=== PATIENT | male | born 1950 | race Hispanic/Latino ===

== ENCOUNTER 2017-07-17 12:44 | Emergency (ER) | payer MEDICARE ==
[2017-07-17 13:08] VITALS: BMI 36.0
--- NOTE | 2017-07-17 13:36 | ED PDOC ---
Arrival/HPI - General Chief Complaint: Pain, Chronic Time Seen by Provider: 07/17/17 12:57 Historian: Patient - History of Present Illness Narrative History of Present Illness (Text): 07/17/17 13:27 A 66 year old male, whose past medical history includes arthritis, back pain, degenerative joint disease, gastritis, and unsteady gait, presents to the emergency department complaining of coccydynia and persistent constipation for 2 1/2 months. Patient reports he fell 2 1/2 months ago. He states since fall, pain radiates down to his legs and it is hard to ambulate. He also mentions experiencing b/l knee pain from arthritis and has had trouble going to the bathroom 4-5 days at a time. Patient has no other complaints. Patient mentions taking Oxycodone and Lyrica, and has been seeing pain management. He says that this morning while pushing to have a BM, he felt the pain in his coccyx again. PMD: Dr. Elan Nuñez Time/Duration: < month (2 1/2 months ) Symptom Onset: Gradual Symptom Course: Unchanged Past Medical History - Provider Review Nursing Documentation Reviewed: Yes - Infectious Disease Hx of Infectious Diseases: None - Tetanus Immunization Tetanus Immunization: Unknown - Past Medical History Past Medical History: Non-Contributing - Cardiac Hx Cardiac Disorders: Yes Hx [place]: Yes Hx Hypertension: Yes - Pulmonary Hx Respiratory Disorders: Yes Hx Pneumonia: Yes (11/10/14) - Neurological Hx Neurological Disorder: No - HEENT Hx HEENT Disorder: Yes (WEARS RX GLASSES) Hx Cataracts: Yes - Renal Hx Renal Disorder: Yes Other/Comment: hepatic cyst - Endocrine/Metabolic Hx Endocrine Disorders: No - Hematological/Oncological Hx Blood Disorders: No - Integumentary Hx Dermatological Disorder: No - Musculoskeletal/Rheumatological Hx Musculoskeletal Disorders: Yes Hx Arthritis: Yes Hx Back Pain: Yes Hx Degenerative Joint Disease: Yes Hx Falls: Yes Hx Rhabdomyolysis: Yes Hx Unsteady Gait: Yes (uses cane) Other/Comment: hiatal hernia, lumbar disc disease, lumbar radiculopathy - Gastrointestinal Hx Gastrointestinal Disorders: Yes Hx Diverticulitis: Yes Hx Gastritis: Yes Hx Hemorrhoids: Yes - Genitourinary/Gynecological Hx Genitourinary Disorders: No - Psychiatric Hx Psychophysiologic Disorder: Yes Hx Anxiety: Yes Hx Depression: Yes Hx Substance Use: No - Past Surgical History Past Surgical History: No Previous - Surgical History Hx Cardiac Catheterization: Yes (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%) Hx Open Heart Surgery: Yes - Anesthesia Hx Anesthesia: Yes Hx Anesthesia Reactions: No Hx Malignant Hyperthermia: No - Suicidal Assessment Feels Threatened In Home Enviroment: No Family/Social History - Physician Review Nursing Documentation Reviewed: Yes Family/Social History: No Known Family HX Smoking Status: Never Smoked Hx Alcohol Use: No Hx Substance Use: No Hx Substance Use Treatment: No Allergies/Home Meds Allergies/Adverse Reactions: Allergies Penicillins Adverse Reaction (Verified 07/17/17 13:12) ANAPHYLAXIS Home Medications: Home Meds Medication Instructions Recorded Confirmed Clonazepam [Klonopin] 2 mg PO TID 04/16/14 04/02/16 Atorvastatin [Lipitor] 40 mg PO DIN 02/02/15 04/02/16 Folic Acid 1 mg PO DAILY 03/07/15 04/02/16 Lyrica 75 mg PO TID 04/17/15 04/02/16 Amiodarone [Cordarone] 200 mg PO DAILY 08/01/15 04/02/16 Ergocalciferol [Vitamin D] 1 tab PO QWK 08/01/15 04/02/16 Furosemide [Lasix] 40 mg PO DAILY 08/01/15 04/02/16 Metoprolol Tartrate [Metoprolol 25 mg PO BID 08/01/15 04/02/16 Tartrate] Buprenorphine [Butrans] 1 patch TOP QWK 04/02/16 04/02/16 Valsartan/Hydrochlorothiazide 1 tab PO DAILY 04/02/16 04/02/16 [Diovan Hct 320-25 mg Tablet] Review of Systems - Physician Review All systems were reviewed & negative as marked: Yes - Review of Systems Constitutional: absent: Fevers, Night Sweats Respiratory: absent: SOB Cardiovascular: absent: Chest Pain Gastrointestinal: Constipation (persistent constipation), Other (Coccydynia). absent: Abdominal Pain, Diarrhea, Nausea, Vomiting Genitourinary Male: Urinary Output Changes (has had trouble using the bathroom) Musculoskeletal: Other (b/l knee pain; leg pain radiating from anal pain) Physical Exam Vital Signs Reviewed: Yes Vital Signs Temp Pulse Resp BP Pulse Ox 07/17/17 15:36 75 18 138/79 99 07/17/17 12:58 98.3 F 79 18 142/81 99 Temperature: Afebrile Blood Pressure: Normal Pulse: Regular Respiratory Rate: Normal Appearance: Positive for: Well-Appearing Pain Distress: None Mental Status: Positive for: Alert and Oriented X 3 - Systems Exam Head: Present: Atraumatic, Normocephalic Mouth: Present: Moist Mucous Membranes Neck: Present: Normal Range of Motion Abdomen: Present: Normal Bowel Sounds. No: Tenderness, Distention, Peritoneal Signs Back: Present: Other (tender to palpation of lumbar spine lower region near coccyx) Upper Extremity: Present: Normal Inspection. No: Cyanosis, Edema Lower Extremity: Present: Normal Inspection. No: Edema Neurological: Present: GCS=15, CN II-XII Intact, Speech Normal Skin: Present: Warm, Dry, Normal Color. No: Rashes Psychiatric: Present: Alert, Oriented x 3, Normal Insight, Normal Concentration Medical Decision Making ED Course and Treatment: 07/17/17 13:32 Impression: 66 year old male with coccydynia and intermittent constipation for several months. Physical exam shows tender to palpation of lower lumbar spine. He is chronically maintained on oxycodone. Plan: -- Lumbar Spine CT -- B/L Knee X-Ray -- Reassess and disposition Prior Visits: Notes and results from previous visits were reviewed. Patient was last seen in the emergency department on 07/24/2016 for "sacral pain". Patient was discharged. Progress Notes: 07/17/2017 15:[address] IMPRESSION: No fracture/dislocation. Multilevel disc bulge with probable calcified old midline disc herniation at L5-S1. No central spinal stenosis. Multilevel neural foraminal stenosis as above. Dictator: Sherman Mckeon MD 07/17/2017 B/L Knee X-ray 15:49 IMPRESSION: 1. No acute fracture or dislocation. 2. Mild tricompartmental degenerative osteoarthrosis, worse in the medial compartments. Small right suprapatella joint effusion. Dictator: Magdalena Rowell MD 07/17/17 16:09 Patient with noted history with symptoms x 2.5 months; imaging as above with no acute findings. He is already maintained on oxycodone and will need higher fiber diet and miralax for constipation. He also says that over this past year he has been walking less but has not seen his pmd in 8 months - informed patient he needs to f/u pmd. Patient had a script given to him by his pain management physician to set up home health aid; he says he has been having trouble setting it up - spoke with social work, who said case management will contact the patient tomorrow regarding this. - RAD Interpretation Radiology Orders: 07/17/17 13:33 LUMBAR SPINE W/O CONTRAST [CT] Stat 07/17/17 13:34 KNEE W PATELLA BILAT 3 VIEW [RAD] Stat - Scribe Statement The provider has reviewed the documentation as recorded by the Scribe Krissy Vance Provider Scribe Attestation: All medical record entries made by the Scribe were at my direction and personally dictated by me. I have reviewed the chart and agree that the record accurately reflects my personal performance of the history, physical exam, medical decision making, and the department course for this patient. I have also personally directed, reviewed, and agree with the discharge instructions and disposition. Disposition/Present on Arrival - Present on Arrival Any Indicators Present on Arrival: No History of DVT/PE: No History of Uncontrolled Diabetes: No Urinary Catheter: No History of Decub. Ulcer: No History Surgical Site Infection Following: None - Disposition Have Diagnosis and Disposition been Completed?: Yes Diagnosis: Low back pain, Constipation, Knee pain, bilateral Disposition: HOME/ ROUTINE Disposition Time: 16:00 Patient Plan: Discharge Condition: GOOD Discharge Instructions (ExitCare): High Fiber Diet (ED) Additional Instructions: Recommend high fiber diet. Take the miralax as prescribed for constipation. Continue your pain medication, as prescribed by pain management. Follow up with Dr. Nuñez. You will receive a call from case management / social work tomorrow regarding possible arrangements for home visiting nurse and/or home health aid. Return to the emergency department if any new concerning symptoms. Prescriptions: Polyethylene Glycol 3350 [Miralax] 17 gm PO DAILY #529 gm Referrals: Elan Nuñez MD [Primary Care Provider] - Follow up with primary Forms: [employer] ([place])
[2017-07-17 15:36] VITALS: PULSE 75
--- NOTE | 2017-07-17 15:42 | CT ---
PROCEDURE: CT Lumbar Spine without contrast HISTORY: fell; intractable low back pain COMPARISON: None. TECHNIQUE: Axial computed tomography images were obtained of the lumbar spine without the use of intravenous contrast. Coronal and sagittal reformatted images were created and reviewed. Radiation dose: Total exam DLP = 9151.85 mGy-cm. This CT exam was performed using one or more of the following dose reduction techniques: Automated exposure control, adjustment of the mA and/or kV according to patient size, and/or use of iterative reconstruction technique. FINDINGS: VERTEBRAE: Unremarkable. No fracture. Normal alignment. DISCS/SPINAL CANAL/NEURAL FORAMINA: L1-2: Minimal disc bulge. No spinal stenosis or neural foraminal stenosis. No focal disc herniation. L2-3: Mild disc bulge. No focal herniation. No spinal stenosis. Mild left L2-3 neural foraminal stenosis. L3-4: Mild disc bulge. No focal disc herniation. No spinal stenosis or neural foraminal stenosis. L4-5: Diffuse disc bulge. No focal disc herniation. Bilateral degenerative facet arthropathy. No central spinal stenosis. Moderate bilateral neural foraminal stenosis. L5-S1: Severe degenerative disc disease with narrowed intervertebral disc space. Mild diffuse disc bulge. Probable calcified midline old disc herniation. Moderate right neural foraminal stenosis. No left neural foraminal stenosis. No central spinal stenosis. PARASPINAL SOFT TISSUES: Unremarkable. OTHER FINDINGS: None. IMPRESSION: No fracture/ dislocation. Multilevel disc bulge with probable calcified old midline disc herniation at L5-S1. No central spinal stenosis. Multilevel neural foraminal stenosis as above.
--- NOTE | 2017-07-17 15:50 | RAD ---
PROCEDURE: Bilateral Knee Radiographs. HISTORY: b/L knee pain s/p fall COMPARISON: None. FINDINGS: BONES: Bone alignment and mineralization are normal. There is no acute displaced fracture or bone destruction. There is deformity in the right fibular head with probable adjacent heterotopic bone. JOINTS: There is mild tricompartmental degenerative osteoarthrosis worse in the medial compartments. There are dorsal patellar enthesophytes. SOFT TISSUES: Right Knee: Normal. Left Knee: Normal. JOINT EFFUSION: Right Knee: There is a trough small suprapatellar joint effusion. Left Knee: None. OTHER FINDINGS: There are atherosclerotic vascular calcifications on the right. IMPRESSION: 1. No acute fracture or dislocation. 2. Mild tricompartmental degenerative osteoarthrosis, worse in the medial compartments. Small right suprapatellar joint effusion.
[2017-07-17 16:20] VITALS: BP 135/79; RESP 17; TEMP 98.2; O2SAT 98
== END 2017-07-17 16:20 | disposition home or self-care (01) ==
LOC: ED 12:44
DX: K59.00 Constipation, unspecified (principal); M54.5 Low back pain; M25.562 Pain in left knee; M25.561 Pain in right knee

== ENCOUNTER 2018-02-05 14:48 | Emergency (ER) | payer MEDICARE ==
[2018-02-05 15:12] VITALS: BMI 34.9
[2018-02-05 15:20] VITALS: BP 158/95; PULSE 78; RESP 18; TEMP 97.9; O2SAT 96
--- NOTE | 2018-02-05 16:16 | ED PDOC ---
Arrival/HPI - General Time Seen by Provider: 02/05/18 15:07 Historian: Patient - History of Present Illness Narrative History of Present Illness (Text): 02/05/18 16:12 Pt is a 66 year old male, whose past medical history includes arthritis, back pain, degenerative joint disease, and unsteady gait, presents to the emergency department complaining of coccyx pain. He states he had a fall about one year ago but continues to have pain that radiates down his left leg making it difficult walk. Also reports a sore buttocks that he knows is due to sitting for long periods. Patient has no other complaints. Patient takes Oxycodone and Lyrica, and has been seeing pain management. Time/Duration: > month Symptom Onset: Gradual Symptom Course: Unchanged Quality: Aching, Pressure, Tightness Severity Level: 6 Activities at Onset: Rest, Sleeping Context: Home Past Medical History - Provider Review Nursing Documentation Reviewed: Yes - Travel History Have you recently traveled outside [place] w/in the past 3 mons?: No - Infectious Disease Hx of Infectious Diseases: None - Tetanus Immunization Tetanus Immunization: Unknown - Past Medical History Past Medical History: Non-Contributing - Cardiac Hx Cardiac Disorders: Yes Hx [place]: Yes Hx Hypertension: Yes - Pulmonary Hx Respiratory Disorders: Yes Hx Pneumonia: Yes (11/10/14) - Neurological Hx Neurological Disorder: No - HEENT Hx HEENT Disorder: Yes (WEARS RX GLASSES) Hx Cataracts: Yes - Renal Hx Renal Disorder: Yes Other/Comment: hepatic cyst - Endocrine/Metabolic Hx Endocrine Disorders: No - Hematological/Oncological Hx Blood Disorders: No - Integumentary Hx Dermatological Disorder: No - Musculoskeletal/Rheumatological Hx Musculoskeletal Disorders: Yes Hx Arthritis: Yes Hx Back Pain: Yes Hx Degenerative Joint Disease: Yes Hx Falls: Yes Hx Rhabdomyolysis: Yes Hx Unsteady Gait: Yes (uses cane) Other/Comment: hiatal hernia, lumbar disc disease, lumbar radiculopathy - Gastrointestinal Hx Gastrointestinal Disorders: Yes Hx Diverticulitis: Yes Hx Gastritis: Yes Hx Hemorrhoids: Yes - Genitourinary/Gynecological Hx Genitourinary Disorders: No - Psychiatric Hx Psychophysiologic Disorder: Yes Hx Anxiety: Yes Hx Depression: Yes Hx Substance Use: No - Past Surgical History Past Surgical History: No Previous - Surgical History Hx Cardiac Catheterization: Yes (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%) Hx Open Heart Surgery: Yes - Anesthesia Hx Anesthesia: Yes Hx Anesthesia Reactions: No Hx Malignant Hyperthermia: No - Suicidal Assessment Feels Threatened In Home Enviroment: No Family/Social History - Physician Review Nursing Documentation Reviewed: Yes Family/Social History: Unknown Family HX Smoking Status: Never Smoked Hx Alcohol Use: No Hx Substance Use: No Hx Substance Use Treatment: No Allergies/Home Meds Allergies/Adverse Reactions: Allergies Penicillins Adverse Reaction (Verified 07/17/17 13:12) ANAPHYLAXIS Home Medications: Home Meds Medication Instructions Recorded Confirmed Clonazepam [Klonopin] 2 mg PO TID 04/16/14 04/02/16 Atorvastatin [Lipitor] 40 mg PO DIN 02/02/15 04/02/16 Folic Acid 1 mg PO DAILY 03/07/15 04/02/16 Lyrica 75 mg PO TID 04/17/15 04/02/16 Amiodarone [Cordarone] 200 mg PO DAILY 08/01/15 04/02/16 Ergocalciferol [Vitamin D] 1 tab PO QWK 08/01/15 04/02/16 Furosemide [Lasix] 40 mg PO DAILY 08/01/15 04/02/16 Metoprolol Tartrate [Metoprolol 25 mg PO BID 08/01/15 04/02/16 Tartrate] Buprenorphine [Butrans] 1 patch TOP QWK 04/02/16 04/02/16 Valsartan/Hydrochlorothiazide 1 tab PO DAILY 04/02/16 04/02/16 [Diovan Hct 320-25 mg Tablet] Review of Systems - Review of Systems Constitutional: Normal Eyes: Normal ENT: Normal Respiratory: Normal Cardiovascular: Normal Gastrointestinal: Normal Genitourinary Male: Normal Musculoskeletal: Normal, Back Pain (left side of low back) Skin: Normal Neurological: Normal Endocrine: Normal Hemo/Lymphatic: Normal Psychiatric: Normal Physical Exam Vital Signs Reviewed: Yes Vital Signs Temp Pulse Resp BP Pulse Ox 02/05/18 15:19 97.9 F 78 18 158/95 H 96 Temperature: Afebrile Blood Pressure: Normal Pulse: Regular Respiratory Rate: Normal Appearance: Positive for: Well-Appearing, Non-Toxic, Comfortable Pain Distress: Moderate Mental Status: Positive for: Alert and Oriented X 3 - Systems Exam Head: Present: Atraumatic, Normocephalic Pupils: Present: PERRL Extroacular Muscles: Present: EOMI Conjunctiva: Present: Normal Mouth: Present: Moist Mucous Membranes Neck: Present: Normal Range of Motion Respiratory/Chest: Present: Clear to Auscultation, Good Air Exchange. No: Respiratory Distress, Accessory Muscle Use Cardiovascular: Present: Regular Rate and Rhythm, Normal S1, S2. No: Murmurs Abdomen: No: Tenderness, Distention, Peritoneal Signs Genitourinary Male: Present: Normal External Genitalia Back: Present: Normal Inspection, Paraspinal Tenderness (bilateral lumbosacral ) , Pain with Leg Raise, Other (erythema over the ischial tuberosities). No: CVA Tenderness, Midline Tenderness Upper Extremity: Present: Normal Inspection. No: Cyanosis, Edema Lower Extremity: Present: Normal Inspection, NORMAL PULSES, Normal ROM, Neurovascularly Intact. No: Edema, CALF TENDERNESS, Juan Carlos's Sign, Tenderness, Temperature Abnormalties Neurological: Present: GCS=15, CN II-XII Intact, Speech Normal, Motor Func Grossly Intact, Normal Sensory Function, Norm Deep Tendon Reflexes, Memory Normal Skin: Present: Warm, Dry, Normal Color. No: Rashes Psychiatric: Present: Alert, Oriented x 3, Normal Insight, Normal Concentration Medical Decision Making ED Course and Treatment: 02/05/18 16:16 Impression Pt is a 66 year old male, whose past medical history includes arthritis, back pain, degenerative joint disease, and unsteady gait, presents to the emergency department complaining of coccyx pain. (-)SLR b/l, SILT and motor function grossly intact; skin is erythematous over the ischial tuberosities Plan Toradol 60 mg IM STAT Asssess and dispo Progress Note Pt very talkative and continues to list complaints over course of stay Pt re-evaluated x2 and stable; dispo home with his brother at bedside Will f/u with PMD ad pain management - Medication Orders Current Medication Orders: Discontinued Medications Ketorolac Tromethamine (Toradol) 30 mg IM STAT STA Stop: 02/05/18 16:13 Last Admin: 02/05/18 16:19 Dose: Ketorolac Tromethamine (Toradol) 60 mg IM STAT STA Stop: 02/05/18 16:12 Last Admin: 02/05/18 16:27 Dose: 60 mg MAR Pain Assessment Document 02/05/18 16:27 SRE (Rec: 02/05/18 16:27 SRE [id number]) Pain Reassessment Is this a pain reassessment? Yes Sleep Is patient sleeping during reassessment? No Pain Scale Used Pain Scale Used Numeric IM Administration Charges Document 02/05/18 16:27 SRE (Rec: 02/05/18 16:27 SRE [id number]) Charges for Administration # of IM Administrations 1 Disposition/Present on Arrival - Present on Arrival Any Indicators Present on Arrival: Yes History of DVT/PE: No History of Uncontrolled Diabetes: No Urinary Catheter: No History of Decub. Ulcer: No History Surgical Site Infection Following: None - Disposition Have Diagnosis and Disposition been Completed?: Yes Diagnosis: Back pain, chronic, Sciatica, left side, Hypochondria Disposition: HOME/ ROUTINE Disposition Time: 16:20 Patient Plan: Discharge Condition: GOOD Discharge Instructions (ExitCare): Chronic Pain (DC) Additional Instructions: Jonn Please see your Primary doctor in the next 24 hrs. We also recommend seeing your bumper and painter for chronic back pain. Take STAR ray Referrals: Elan Nuñez MD [Primary Care Provider] - Follow up with primary
== END 2018-02-05 16:51 | disposition home or self-care (01) ==
LOC: ED 14:48
DX: M54.32 Sciatica, left side (principal); G89.29 Other chronic pain; F45.21 Hypochondriasis; I10 Essential (primary) hypertension
CPT/HCPCS: 96372; 99281; J1885

== ENCOUNTER 2018-03-08 14:43 | Emergency (ER) | payer MEDICARE ==
[2018-03-08 14:48] VITALS: BMI 30.4
[2018-03-08 15:00] VITALS: RESP 18; TEMP 97.9
[2018-03-08] MEDS ORDERED: Morphine 2 mg/ml ISec IVP STA (15:09)
[2018-03-08] MEDS ORDERED: Morphine 4 mg/ml ISec IVP STA (15:11)
--- NOTE | 2018-03-08 16:55 | RAD ---
PROCEDURE: Radiographs of the pelvis and bilateral hips HISTORY: fell weeks ago, persistent pain COMPARISON: None. FINDINGS: BONES: Pelvis: No fracture identified. Right hip:Unremarkable Left hip:Unremarkable. JOINTS: Right hip: Moderate degenerative change. Left hip: Symmetrical degenerative change. Sacroiliac Joints: Unremarkable. Pubic symphysis: Unremarkable. SOFT TISSUES: Normal. OTHER FINDINGS: None. IMPRESSION: No significant or acute findings to account for/ related to the clinical presentation. Mild degenerative changes both hips.
--- NOTE | 2018-03-08 16:55 | RAD ---
PROCEDURE: Radiographs of the Lumbar Spine. HISTORY: lower back pain COMPARISON: No prior. FINDINGS: BONES: Normal alignment. No listhesis. No fracture. DISC SPACES: Degenerative changes primarily lower lumbar spine, lumbosacral junction and lower thoracic spine, of T12-L1. This consists of mild disc space narrowing and non marginal osteophyte formation OTHER FINDINGS: Calcified nonaneurysmal abdominal aorta. IMPRESSION: No acute findings related to/accounting for the clinical presentation. Additional benign and/or incidental findings described above.
--- NOTE | 2018-03-08 17:12 | ED PDOC ---
Arrival/HPI - General Chief Complaint: Pain, Chronic Time Seen by Provider: 03/08/18 15:00 Historian: Patient, Family (brother) - History of Present Illness Narrative History of Present Illness (Text): 03/08/18 1510 pt p/w + > 2 months onset of lower back pain; pt states he accidentally fell onto his buttock ~ 2 months ago and since then has had persistent lower back pain; pt states right hip also affected > left; pt states walking causes more pain; pt walks with a cane and noted today to have increased difficulty with walking even with using his cane; pt states no falls since that fall ~ 2 months ago; pt states no fever/chills/sweats, no cp/sob/palpitations, + infrequent coughs with sputum production; pt states + lower abd pain/cramps worsening over the last few weeks; pt states no n/v, no new numbness/tingling; pt arrived to ED for further eval pt's without other complaints. PCP: DR brennan hx of low back pain pt lives with brother pt is right hand dominate Time/Duration: > week (8weeks) Symptom Onset: Gradual Symptom Course: Worsening Quality: Tightness, Cramping Severity Level: Severe Activities at Onset: Other (with movement causes more pain) Context: Walking, Exertion, Home Past Medical History - Provider Review Nursing Documentation Reviewed: Yes - Travel History Have you recently traveled outside [place] w/in the past 3 mons?: No - Past History Past History: No Previous - Infectious Disease Hx of Infectious Diseases: None - Tetanus Immunization Tetanus Immunization: Unknown - Past Medical History Past Medical History: Non-Contributing - Cardiac Hx Cardiac Disorders: Yes Hx W[place]: Yes Hx Hypertension: Yes - Pulmonary Hx Respiratory Disorders: Yes Hx Pneumonia: Yes (11/10/14) - Neurological Hx Neurological Disorder: No - HEENT Hx HEENT Disorder: Yes (WEARS RX GLASSES) Hx Cataracts: Yes - Renal Hx Renal Disorder: Yes Other/Comment: hepatic cyst - Endocrine/Metabolic Hx Endocrine Disorders: No - Hematological/Oncological Hx Blood Disorders: No - Integumentary Hx Dermatological Disorder: No - Musculoskeletal/Rheumatological Hx Musculoskeletal Disorders: Yes Hx Arthritis: Yes Hx Back Pain: Yes Hx Degenerative Joint Disease: Yes Hx Falls: Yes Hx Rhabdomyolysis: Yes Hx Unsteady Gait: Yes (uses cane) Other/Comment: hiatal hernia, lumbar disc disease, lumbar radiculopathy - Gastrointestinal Hx Gastrointestinal Disorders: Yes Hx Diverticulitis: Yes Hx Gastritis: Yes Hx Hemorrhoids: Yes - Genitourinary/Gynecological Hx Genitourinary Disorders: No - Psychiatric Hx Psychophysiologic Disorder: Yes Hx Anxiety: Yes Hx Depression: Yes Hx Substance Use: No - Past Surgical History Past Surgical History: No Previous - Surgical History Hx Cardiac Catheterization: Yes (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%) Hx Open Heart Surgery: Yes - Anesthesia Hx Anesthesia: Yes Hx Anesthesia Reactions: No Hx Malignant Hyperthermia: No - Suicidal Assessment Feels Threatened In Home Enviroment: No Family/Social History - Physician Review Nursing Documentation Reviewed: Yes Family/Social History: No Known Family HX Smoking Status: Never Smoked Hx Alcohol Use: No Hx Substance Use: No Hx Substance Use Treatment: No Allergies/Home Meds Allergies/Adverse Reactions: Allergies Penicillins Adverse Reaction (Verified 07/17/17 13:12) ANAPHYLAXIS Home Medications: Home Meds Medication Instructions Recorded Confirmed Clonazepam [Klonopin] 2 mg PO TID 04/16/14 04/02/16 Atorvastatin [Lipitor] 40 mg PO DIN 02/02/15 04/02/16 Folic Acid 1 mg PO DAILY 03/07/15 04/02/16 Lyrica 75 mg PO TID 04/17/15 04/02/16 Amiodarone [Cordarone] 200 mg PO DAILY 08/01/15 04/02/16 Ergocalciferol [Vitamin D] 1 tab PO QWK 08/01/15 04/02/16 Furosemide [Lasix] 40 mg PO DAILY 08/01/15 04/02/16 Metoprolol Tartrate [Metoprolol 25 mg PO BID 08/01/15 04/02/16 Tartrate] Buprenorphine [Butrans] 1 patch TOP QWK 04/02/16 04/02/16 Valsartan/Hydrochlorothiazide 1 tab PO DAILY 04/02/16 04/02/16 [Diovan Hct 320-25 mg Tablet] Review of Systems - Review of Systems Constitutional: Normal Eyes: Normal ENT: Normal Respiratory: Normal Cardiovascular: Normal Gastrointestinal: Abdominal Pain Genitourinary Male: Normal Musculoskeletal: Back Pain, Other (lower back pain, right >> left). absent: Neck Pain Skin: Normal Neurological: Normal Endocrine: Normal Hemo/Lymphatic: Normal Psychiatric: Normal Physical Exam - Physical Exam Narrative Physical Exam (Text): 03/08/18 1520 GENERAL: alert/awake, GCS = 15, oriented x 3, resting in bed, uncomfortable, cooperative, interactive Head: NC/AT FACE/Oral: no gross deformities noted; poor dentitions, no drooling/stridor, no exudate/lesions, no dysphonia EYE: PERRLA, EOMI, sclera anicteric, no nystagmus, no photophobia; visual field intact b/l NECK: intact ROM, no midline tenderness, no nuchal rigidity, no meningeal signs ; no step off Chest Wall: no crepitus, no gross deformities, no focal tenderness noted CHEST: CTA b/l, no w/r/r Cards: +S1, +S2, no m/r/r ABD: +BS, soft/nd/nt, well nourished/obese male, no focal tenderness, no medellin' s sign, no mcburney's point tenderness, no masses/rebound/guarding/rigidity ext: intact ROM, strength 5-/5 grossly intact in b/l lower limbs, neurovasc intact b/l; no gross deformities noted SKIN: cap refill < 1 sec, no ulcerations, no petechiae, no rashes NEURO: CNII-XII WNL, no facial asymmetries, no slurr speech, oriented x 3 NIH stroke scale ~ 0 Psych: normal affect, cooperative Vital Signs Reviewed: Yes Vital Signs Temp Pulse Resp BP Pulse Ox 03/08/18 19:44 80 18 148/71 99 03/08/18 18:00 64 18 134/74 96 03/08/18 14:59 97.9 F 70 18 136/80 96 Temperature: Afebrile Blood Pressure: Hypertensive (mild) Pulse: Regular Respiratory Rate: Normal Appearance: Positive for: Well-Appearing, Non-Toxic, Uncomfortable Pain Distress: None Mental Status: Positive for: Alert and Oriented X 3 - Systems Exam Head: Present: Atraumatic, Normocephalic Medical Decision Making ED Course and Treatment: 03/08/18 1510 Impression: back pain, right > left lower back pain, fell 8 weeks ago i have consider all the differential diagnosis regarding pt's chief medical complaints/clinical findings, including but are not limited to: back pain, right > left lower back pain, fell 8 weeks ago A/P: back pain, right > left lower back pain, fell 8 weeks ago - labs - xray - ua - ct? - supportive care - observe/reevaluation [id number] results pt is currently comfortable pt demonstrated ability to ambulate without assistance aside from using his cane 03/08/18 18:[address] Brennan, made aware, states patient has a chronic history of back and abdominal pain complaints, not concerned with current findings at the moment. If patient is stable and ambulatory, patient can be discharged home and advised to f/u with him in his office tomorrow morning. 03/08/18 19:24 pt is not in acute distress pt continues to have many questions regarding his chronic symptoms (back pain, arthritic pain - pain control, and his general deterioration of health); pt is made aware of his medical results pt is encouraged fluid hydration pt is encouraged to see dr Brennan tomorrow pt will follow up as directed pt will be discharged home Re-evaluation Time: 17:23 Reassessment Condition: Unchanged - Lab Interpretations Lab Results: 03/08/18 17:00 03/08/18 17:00 Lab Results 03/08/18 18:48: Urine Color Yellow, Urine Appearance Clear, Urine pH 6.5, Ur Specific [place] 1.010, Urine Protein Negative, Urine Glucose (UA) Negative, Urine Ketones Negative, Urine Blood Negative, Urine Nitrate Negative, Urine Bilirubin Negative, Urine Urobilinogen 0.2, Ur Leukocyte Esterase Negative 03/08/18 17:00: Sodium 143, Potassium 4.0, Chloride 101, Carbon Dioxide 28, Anion Gap 18, BUN 28 H, Creatinine 1.6 H, Est GFR ( Amer) 52, Est GFR ( Non-Af Amer) 43, Random Glucose 110, Calcium 9.6, Total Bilirubin 0.5, AST 50, ALT 50, Alkaline Phosphatase 70, Troponin I 0.02 D, Total Protein 8.0, Albumin 4.4, Globulin 3.6, Albumin/Globulin Ratio 1.2, Lipase 135 03/08/18 17:00: PT 12.0, INR 1.05, APTT 30.3 03/08/18 17:00: WBC 12.5 H D, RBC 4.80, Hgb 14.2, Hct 41.5 L, MCV 86.5, MCH 29.6 , MCHC 34.2, RDW 13.5, Plt Count 339, MPV 10.3, Gran % 79.6 H, Lymph % (Auto) 13.2 L, Lake % (Auto) 6.8 H, Eos % (Auto) 0.2 L, Baso % (Auto) 0.2, Gran # 10.00 H, Lymph # (Auto) 1.7, Lake # (Auto) 0.9 H, Eos # (Auto) 0.0, Baso # (Auto ) 0.02 I have reviewed the lab results: Yes Interpretation: Abnormal lab values (chronic elevated creat; slightly above normal WBCs) - RAD Interpretation Narrative RAD Interpretations (Text): 03/08/18 17:14 PROCEDURE: Radiographs of the pelvis and bilateral hips HISTORY: fell weeks ago, persistent pain COMPARISON: None. FINDINGS: BONES: Pelvis: No fracture identified. Right hip:Unremarkable Left hip:Unremarkable. JOINTS: Right hip: Moderate degenerative change. Left hip: Symmetrical degenerative change. Sacroiliac Joints: Unremarkable. Pubic symphysis: Unremarkable. SOFT TISSUES: Normal. OTHER FINDINGS: None. IMPRESSION: No significant or acute findings to account for/ related to the clinical presentation. Mild degenerative changes both hips. PROCEDURE: Radiographs of the Lumbar Spine. HISTORY: lower back pain COMPARISON: No prior. FINDINGS: BONES: Normal alignment. No listhesis. No fracture. DISC SPACES: Degenerative changes primarily lower lumbar spine, lumbosacral junction and lower thoracic spine, of T12-L1. This consists of mild disc space narrowing and non marginal osteophyte formation OTHER FINDINGS: Calcified nonaneurysmal abdominal aorta. IMPRESSION: No acute findings related to/accounting for the clinical presentation. Additional benign and/or incidental findings described above. PROCEDURE: CT Abdomen and Pelvis with contrast HISTORY: Lower abdominal pain. COMPARISON: 11/10/2014. CT abdomen and pelvis TECHNIQUE: Contrast dose: 100 cc Omnipaque 350 Radiation dose: Total exam DLP = 1081.44 mGy-cm. This CT exam was performed using one or more of the following dose reduction techniques: Automated exposure control, adjustment of the mA and/or kV according to patient size, and/or use of iterative reconstruction technique. FINDINGS: LOWER THORAX: Unremarkable. LIVER: Unremarkable. No gross lesion or ductal dilatation. Incidental finding(s): Stable cyst right hepatic lobe 10 mm. GALLBLADDER AND BILE DUCTS: Unremarkable. PANCREAS: Is Unremarkable. No gross lesion or ductal dilatation. SPLEEN: Unremarkable. ADRENALS: Unremarkable. No mass. KIDNEYS AND URETERS: Unremarkable. No hydronephrosis. No solid mass. VASCULATURE: Unremarkable. No aortic aneurysm. BOWEL: Fecal impaction, constipation without obstruction. Diverticulosis without an acute inflammatory component or other associated pathologic process. APPENDIX: Normal appendix. PERITONEUM: Unremarkable. No free fluid. No free air. LYMPH NODES: Unremarkable. No enlarged lymph nodes. BLADDER: Unremarkable. REPRODUCTIVE: Unremarkable. BONES: No acute fracture. OTHER FINDINGS: Stable streaking of mesenteric fat not felt to be clinically relevant/ consequential. IMPRESSION: Constipation, fecal impaction without obstruction. Additional benign and/or incidental findings described above. L/S CT: negative, preliminary PROCEDURE: CT Lumbar Spine without contrast HISTORY: Trauma several weeks ago with persistent pain COMPARISON: None. TECHNIQUE: Axial computed tomography images were obtained of the lumbar spine without the use of intravenous contrast. Coronal and sagittal reformatted images were created and reviewed. Radiation dose: Total exam DLP = 1852.68 mGy-cm. This CT exam was performed using one or more of the following dose reduction techniques: Automated exposure control, adjustment of the mA and/or kV according to patient size, and/or use of iterative reconstruction technique. FINDINGS: VERTEBRAE: Unremarkable. No fracture. Normal alignment. DISCS/SPINAL CANAL/NEURAL FORAMINA: L1-2: Unremarkable. L2-3: Unremarkable. L3-4: Unremarkable. L4-5: Unremarkable. L5-S1: Degenerative changes including disc space narrowing and central calcified formation. PARASPINAL SOFT TISSUES: Unremarkable. OTHER FINDINGS: None. IMPRESSION: Disc degenerative change L5-S1. No acute findings related to/accounting for the clinical presentation. Concordant results (preliminary interpretation) provided by [employer]. Procedure Completed: 18:27 Preliminary ([facility]) Report: Dictated and Authenticated: 19:25 Final Interpretation: 09:25May 2017. Radiology Orders: 03/08/18 15:06 LS SPINE AP/LAT [RAD] Stat 03/08/18 15:07 HIP MIN 2V W/ PELVIS ROSANNA [RAD] Stat 03/08/18 16:21 ABD & PELVIS IV CONTRAST ONLY [CT] Stat LUMBAR SPINE W/O CONTRAST [CT] Stat Financial Services Specialist: Radiologist - Medication Orders Current Medication Orders: Discontinued Medications Sodium Chloride (Sodium Chloride 0.9%) 500 mls @ 999 mls/hr IV .Q31M STA Stop: 03/08/18 19:10 Last Admin: 03/08/18 18:41 Dose: 999 mls/hr eMAR Start Stop Document 03/08/18 18:41 GMD (Rec: 03/08/18 18:41 GMD [id number]) Intravenous Solution Start Date 03/08/18 Start Time 18:41 End Date 03/08/18 End time 19:11 Total Infusion Time 30 Morphine Sulfate (Morphine) 4 mg IVP STAT STA Stop: 03/08/18 15:12 Last Admin: 03/08/18 17:41 Dose: 4 mg MAR Pain Assessment Document 03/08/18 17:41 GMD (Rec: 03/08/18 17:41 GMD [id number]) Pain Reassessment Is this a pain reassessment? No Presence of Pain Presence of Pain Yes IVP Administration Document 03/08/18 17:41 GMD (Rec: 03/08/18 17:41 GMD [id number]) Charges for Administration # of IVP Administrations 1 Disposition/Present on Arrival - Present on Arrival Any Indicators Present on Arrival: No History of DVT/PE: No History of Uncontrolled Diabetes: No Urinary Catheter: No History of Decub. Ulcer: No History Surgical Site Infection Following: None - Disposition Have Diagnosis and Disposition been Completed?: Yes Diagnosis: Low back pain, Arthritis, Hip pain, right, Constipation Disposition: HOME/ ROUTINE Disposition Time: 19:27 Patient Plan: Discharge Condition: STABLE Discharge Instructions (ExitCare): Low Back Pain in Adults, Chronic Pain (DC), Constipation, Adult (DC), Osteoarthritis (DC), Hip Pain in Older People Print Language: THAI Additional Instructions: Make sure to see your doctor in 1-2 days YOU NEED TO SEE DR BRENNAN tomorrow DRINK PLENTY OF FLUIDS take your medications as prescribed AVOID heavy lifting AVOID prolonged standing/walking use your cane for movement RETURN TO ED IF worse pain, cant breath, persistent vomiting, high fever >101- 102 for hours, altered behavior, slurr speech, facial changes, focal weakness ( arm/leg or both), unable to urinate, heavy/persistent bleeding, passing out, chest pain, or other medical emergencies Prescriptions: Magnesium Citrate [Citrate of Mag] 300 ml PO ONCE #1 bottle Sennosides/Docusate Sodium [Senokot-S Tablet] 1 each PO BID PRN #20 tablet PRN Reason: Constipation Referrals: Elan Brennan MD [Primary Care Provider] - Follow up with primary Octavio Oliver DO [Staff Provider] - Follow up with primary Forms: [employer] (Uzbek)
[2018-03-08 17:25] LABS: BASO # 0.02 K/mm3 (0.0-2.0); BASO % 0.2 % (0.0-3.0); EOS % 0.2 % (1.5-5.0); GRAN % 79.6 % (50.0-68.0); HEMOGLOBIN 14.2 g/dL (14.0-18.0); LYMPH # 1.7 (1.2-3.4); LYMPH % 13.2 % (22.0-35.0); MEAN CELL VOLUME 86.5 fl (80.0-105.0); MEAN CORPUSCULAR HEMOGLOBIN 29.6 pg (25.0-35.0); MEAN CORPUSCULAR HGB CONC 34.2 g/dl (31.0-37.0); MEAN PLATELET VOLUME 10.3 fl (7.0-11.0); MONO # 0.9 (0.1-0.6); MONO % 6.8 % (1.0-6.0); RBC 4.8 10^6/uL (3.5-6.1); RED CELL DISTRIBUTION WIDTH 13.5 % (11.5-14.5); WHITE BLOOD COUNT 12.5 10^3/ul (4.5-11.0)
[2018-03-08 17:28] LABS: ALB/GLOB RATIO 1.2 (1.1-1.8); ALBUMIN 4.4 g/dL (3.0-4.8)
[2018-03-08 17:36] LABS: INR 1.05 (0.93-1.08); PARTIAL THROMBOPLASTIN TIME 30.3 Seconds (25.1-36.5)
[2018-03-08 17:39] LABS: TROPONIN I 0.02 ng/mL
[2018-03-08] MEDS ORDERED: Iohexol 350 MG/100 ML VIAL ONE (17:44)
[2018-03-08 17:58] LABS: CALCIUM 9.6 mg/dL (8.4-10.5)
[2018-03-08] MEDS ORDERED: Sodium Chloride 0.9% 500 ML IV STA (18:40)
--- NOTE | 2018-03-08 18:52 | CT ---
PROCEDURE: CT Abdomen and Pelvis with contrast HISTORY: Lower abdominal pain. COMPARISON: 11/10/2014. CT abdomen and pelvis TECHNIQUE: Contrast dose: 100 cc Omnipaque 350 Radiation dose: Total exam DLP = 1081.44 mGy-cm. This CT exam was performed using one or more of the following dose reduction techniques: Automated exposure control, adjustment of the mA and/or kV according to patient size, and/or use of iterative reconstruction technique. FINDINGS: LOWER THORAX: Unremarkable. LIVER: Unremarkable. No gross lesion or ductal dilatation. Incidental finding(s): Stable cyst right hepatic lobe 10 mm. GALLBLADDER AND BILE DUCTS: Unremarkable. PANCREAS: Is Unremarkable. No gross lesion or ductal dilatation. SPLEEN: Unremarkable. ADRENALS: Unremarkable. No mass. KIDNEYS AND URETERS: Unremarkable. No hydronephrosis. No solid mass. VASCULATURE: Unremarkable. No aortic aneurysm. BOWEL: Fecal impaction, constipation without obstruction. Diverticulosis without an acute inflammatory component or other associated pathologic process. APPENDIX: Normal appendix. PERITONEUM: Unremarkable. No free fluid. No free air. LYMPH NODES: Unremarkable. No enlarged lymph nodes. BLADDER: Unremarkable. REPRODUCTIVE: Unremarkable. BONES: No acute fracture. OTHER FINDINGS: Stable streaking of mesenteric fat not felt to be clinically relevant/ consequential. IMPRESSION: Constipation, fecal impaction without obstruction. Additional benign and/or incidental findings described above.
[2018-03-08 19:00] LABS: PH,URINE 6.5 (4.7-8.0); URINE APPEARANCE CLEAR (CLEAR); URINE BILIRUBIN NEGATIVE (NEGATIVE); URINE BLOOD NEGATIVE (NEGATIVE); URINE COLOR YELLOW (YELLOW); URINE GLUCOSE (UA) NEGATIVE (NEGATIVE); URINE LEUKOCYTE ESTERASE NEGATIVE Leu/uL (NEGATIVE); URINE PROTEIN NEGATIVE mg/dL (<30 mg/dL); URINE UROBILINOGEN 0.2 E.U./dL (<1 E.U./dL)
[2018-03-08 19:45] VITALS: BP 148/71; PULSE 80; O2SAT 99
--- NOTE | 2018-03-09 09:28 | CT ---
PROCEDURE: CT Lumbar Spine without contrast HISTORY: Trauma several weeks ago with persistent pain COMPARISON: None. TECHNIQUE: Axial computed tomography images were obtained of the lumbar spine without the use of intravenous contrast. Coronal and sagittal reformatted images were created and reviewed. Radiation dose: Total exam DLP = 1852.68 mGy-cm. This CT exam was performed using one or more of the following dose reduction techniques: Automated exposure control, adjustment of the mA and/or kV according to patient size, and/or use of iterative reconstruction technique. FINDINGS: VERTEBRAE: Unremarkable. No fracture. Normal alignment. DISCS/SPINAL CANAL/NEURAL FORAMINA: L1-2: Unremarkable. L2-3: Unremarkable. L3-4: Unremarkable. L4-5: Unremarkable. L5-S1: Degenerative changes including disc space narrowing and central calcified formation. PARASPINAL SOFT TISSUES: Unremarkable. OTHER FINDINGS: None. IMPRESSION: Disc degenerative change L5-S1. No acute findings related to/accounting for the clinical presentation. Concordant results (preliminary interpretation) provided by [email or web address]. Procedure Completed: 18:27 Preliminary ([facility]) Report: Dictated and Authenticated: 19:25 Final Interpretation: 09:25May 2017.
== END 2018-03-08 19:53 | disposition home or self-care (01) ==
LOC: ED 14:43
DX: M54.5 Low back pain (principal); M16.0 Bilateral primary osteoarthritis of hip; M25.551 Pain in right hip; K59.00 Constipation, unspecified; I25.2 Old myocardial infarction; I10 Essential (primary) hypertension
CPT/HCPCS: 72100; 72131; 73521; 74177; 80053; 81003; 83690; 84484; 85025; 85610; 85730; 96374; 99285; J2270; J7040; Q9967

== ENCOUNTER 2018-04-03 16:20 | Emergency (ER) | payer MEDICARE ==
[2018-04-03 16:25] VITALS: BMI 28.7
--- NOTE | 2018-04-03 18:03 | ED PDOC ---
Arrival/HPI - General Historian: Patient, Family (Brother) - History of Present Illness Symptom Onset: Other (Constant as per patient) Symptom Course: Worsening Quality: Other (aching persistent pain) <John Rai - Last Filed: 04/03/18 19:03> <WillyPio L - Last Filed: 04/03/18 22:31> - General Chief Complaint: Back Pain Time Seen by Provider: 04/03/18 16:32 - History of Present Illness Narrative History of Present Illness (Text): 04/03/18 17:39 This is a 67 yo M, whose past medical history includes arthritis, Meniere's disease, HTN, HLD, chronic back pain, degenerative joint disease, gastritis, and unsteady gait who presents with complaints of diffuse pains, constipation. and reports being sent by PMD to obtain urinalysis. ROS and HPI are limited as patient is an extremely poor historian, with stream of consciousness history telling, cyclic logic, and very poor insight. Patient's primary complaint is pain; in particular back pain, left hip pain (which he intermittently refers to as kidney pain), and neck pain. Brother at bedside reports patient remains in chair constantly, only getting up to go to bathroom. Patient reports concern for falls, but when told to obtain a walker, brother reports patient already has one, but doesn't want to use it because it hurts to walk. Also reports infrequent urination and "kidney pain," and is concerned for possible UTI, but when told he needs to be drinking more water (admits he was also told this by his PMD), but is afraid to drink more water because he thinks it will make his pain worse. When told that this is not the case, it will help him urinate more and may improve his diffuse muscle pain, he states he can't get up to get more water because of his pain. Also complains of suspected rash along his buttocks and in his folds, tried using hemorrhoid cream but claims that it made the area burn. Answers yes to most ROS questions, including nausea, emesis (reports 2x emesis in last 3 days, white emesis, non-bloody/non-bilious), headache, dizziness, dysuria, constipation, straining, pain with defecation, focal weakness, diffuse weakness, chills, fevers, chest pain, shortness of breath, and vision changes. Repeatedly asking why he can't have a surgery for his pains. Was scheduled for follow up with his Pain Management physician today, but reports he doesn't want to see him because he feels he only writes pills for him, otherwise doesn't see or examine him, doesn't listen to him. Reports same fall he has reported on 2 prior visits to ED, but denies any falls in last 3 days. PMH: as above PSH: Cardiac cath, CABG, Epidural procedures x22 Fam Hx: unknown, patient and brother unable to articulate family hx Soc Hx: patient unable to articulate, keeps losing focus; as per prior charting , denies tobacco, alcohol, illicits PMD: Dr. Nuñez (John Rai) Associated Symptoms (Text): 04/03/18 18:04 reports chronic diffuse muscle pain, neck pain, back pain, left leg pain, dysuria, decreased urination, and constipation (John Rai) Past Medical History - Provider Review Nursing Documentation Reviewed: Yes - Past History Past History: No Previous - Infectious Disease Hx of Infectious Diseases: None - Tetanus Immunization Tetanus Immunization: Unknown - Past Medical History Past Medical History: Non-Contributing - Cardiac Hx Cardiac Disorders: Yes Hx NM: Yes Hx Hypertension: Yes - Pulmonary Hx Respiratory Disorders: Yes Hx Pneumonia: Yes (11/10/14) - Neurological Hx Neurological Disorder: No - HEENT Hx HEENT Disorder: Yes (WEARS RX GLASSES) Hx Cataracts: Yes - Renal Hx Renal Disorder: Yes Other/Comment: hepatic cyst - Endocrine/Metabolic Hx Endocrine Disorders: No - Hematological/Oncological Hx Blood Disorders: No - Integumentary Hx Dermatological Disorder: No - Musculoskeletal/Rheumatological Hx Musculoskeletal Disorders: Yes Hx Arthritis: Yes Hx Back Pain: Yes Hx Degenerative Joint Disease: Yes Hx Falls: Yes Hx Rhabdomyolysis: Yes Hx Unsteady Gait: Yes (uses cane) Other/Comment: hiatal hernia, lumbar disc disease, lumbar radiculopathy - Gastrointestinal Hx Gastrointestinal Disorders: Yes Hx Diverticulitis: Yes Hx Gastritis: Yes Hx Hemorrhoids: Yes - Genitourinary/Gynecological Hx Genitourinary Disorders: No - Psychiatric Hx Psychophysiologic Disorder: Yes Hx Anxiety: Yes Hx Depression: Yes Hx Substance Use: No - Past Surgical History Past Surgical History: No Previous - Surgical History Hx Cardiac Catheterization: Yes (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%) Hx Open Heart Surgery: Yes - Anesthesia Hx Anesthesia: Yes Hx Anesthesia Reactions: No Hx Malignant Hyperthermia: No - Suicidal Assessment Feels Threatened In Home Enviroment: No <John Rai - Last Filed: 04/03/18 19:03> Family/Social History - Physician Review Nursing Documentation Reviewed: Yes Family/Social History: Unknown Family HX Smoking Status: Never Smoked Hx Alcohol Use: No Hx Substance Use: No Hx Substance Use Treatment: No <John Rai - Last Filed: 04/03/18 19:03> Allergies/Home Meds <John Rai - Last Filed: 04/03/18 19:03> <Pio Aguilera - Last Filed: 04/03/18 22:31> Allergies/Adverse Reactions: Allergies Penicillins Adverse Reaction (Verified 07/17/17 13:12) ANAPHYLAXIS Home Medications: Home Meds Medication Instructions Recorded Confirmed Clonazepam [Klonopin] 0.5 mg PO BID PRN 04/16/14 04/03/18 Lyrica 75 mg PO BID 04/17/15 04/03/18 Amiodarone [Cordarone] 200 mg PO DAILY 08/01/15 04/03/18 Valsartan/Hydrochlorothiazide 1 tab PO DAILY 04/02/16 04/03/18 [Diovan Hct 320-25 mg Tablet] Atorvastatin [Lipitor] 1 tab PO HS 04/03/18 04/03/18 Ergocalciferol [Drisdol 50,000 1 cap PO Q7D 04/03/18 04/03/18 Intl Units Cap] Metoprolol Tartrate [Lopressor] 1 tab PO BID 04/03/18 04/03/18 Omeprazole [Omeprazole] 1 tab PO DAILY 04/03/18 04/03/18 Topiramate [Topamax] 1 tab PO BID 04/03/18 04/03/18 cloNIDine 0.3 mg/24 hr 1 patch TOP Q7D 04/03/18 04/03/18 [catapres-TTS3 0.3 mg/24 hr] Review of Systems - Physician Review All systems were reviewed & negative as marked: Yes - Review of Systems Constitutional: Fatigue, Fevers Eyes: Vision Changes ENT: Sore Throat, Rhinorrhea. absent: Tinnitus Respiratory: SOB, Cough Cardiovascular: Chest Pain, Palpitations, Calf Pain Gastrointestinal: Abdominal Pain, Constipation, Nausea, Vomiting. absent: Diarrhea, Hematochezia, Hematemesis Genitourinary Male: Dysuria. absent: Frequency, Hematuria Musculoskeletal: Arthralgias, Back Pain, Neck Pain, Myalgias Skin: Rash (on back and buttocks), Skin Lesions (on back and buttocks) Neurological: Headache, Dizziness, Focal Weakness, Gait Changes. absent: Seizure <John Rai - Last Filed: 04/03/18 19:03> Physical Exam Vital Signs Reviewed: Yes Temperature: Afebrile Blood Pressure: Hypertensive Pulse: Regular Respiratory Rate: Normal Appearance: Positive for: Non-Toxic, Ill-Appearing (chronically ill), Uncomfortable Pain Distress: Severe (claims severe pain, only exhibits mild during exam) Mental Status: Positive for: Alert and Oriented X 3 - Systems Exam Head: Present: Atraumatic, Normocephalic. No: Contusion, Ecchymosis, Abrasion, Laceration Pupils: No: Pinpoint Extroacular Muscles: Present: EOMI Conjunctiva: Present: Normal. No: Injected, Icteric Mouth: Present: Moist Mucous Membranes, Normal Lips, Normal Tounge. No: Dry, Drooling Nose (External): Present: Atraumatic. No: Abrasion, Laceration Nose (Internal): Present: No Active Bleeding. No: Epistaxis Neck: Present: Normal Range of Motion (reports pain with all ROM, but passive ROM intact and appropriate), MIDLINE TENDERNESS, Trachea Midline. No: JVD Respiratory/Chest: Present: Clear to Auscultation, Good Air Exchange, Tender to Palpation (chest and shoulders tender to palpation). No: Respiratory Distress, Accessory Muscle Use, Wheezes, Decreased Breath Sounds, Rales, Rhonchi, Tachypneic Cardiovascular: Present: Regular Rate and Rhythm, Normal S1, S2, Peripheal Pulses Present (+2 radials and dorsalis pedis bilaterally). No: Murmurs, Irregular Rhythm, Tachycardic, Bradycardic Abdomen: Present: Tenderness. No: Distention, Normal Bowel Sounds (diminshed bowel sounds), Peritoneal Signs, Guarding, Mass/Organomegaly Back: Present: Other (no rashes or lesions appreciated, only some age spots, but multiple areas where patient has been scratching, one small area of healed scab where patient scratched until he bled) Upper Extremity: Present: Normal Inspection, Normal ROM, NORMAL PULSES, Tenderness (reports tenderness and tingling in fingertips, but not appreciated on palpation). No: Cyanosis, Edema, Swelling, Erythema, Deformity Lower Extremity: Present: Normal Inspection, CALF TENDERNESS (reports static calf tenderness bilaterally L>R, but no reaction to palpation of either), NORMAL PULSES, Normal ROM. No: Edema, Cyanosis, Tenderness, Swelling, Erythema , Deformity Neurological: Present: GCS=15, Speech Normal, Motor Func Grossly Intact, Normal Sensory Function, Other (able to stand with cane, bend over sufficiently to lower pants and underwear, and then to pull back up, no gross focal deficits appreciated during this time) Skin: Present: Warm, Dry, Normal Color, Other (no rash appreciated on back or buttocks, only signs of skin folds and muscle wasting along bilateral buttocks L >R). No: Rashes, Erythematous, Induration, Laceration, Abrasion Psychiatric: Present: Alert, Oriented x 3, Anxious, Other (very poor insight and concentration, using circular logic and constantly referring back to his pain symptoms and wanting someone to do something acute to fix them, continuously giving new reasons why he can't follow up with pain management or follow currently recommended tx plan by PMD, needs constant re-focusing on questions asked as easily veers off-topic back to pain and other associated complaints). No: Normal Insight, Normal Concentration <John Rai - Last Filed: 04/03/18 19:03> <Pio Aguilera - Last Filed: 04/03/18 22:31> Vital Signs Temp Pulse Resp BP Pulse Ox 04/03/18 19:14 98.9 F 90 16 162/89 H 96 04/03/18 16:29 99.4 F 98 H 18 175/94 H 95 Medical Decision Making Reassessment Condition: Re-examined, Unchanged <John Rai - Last Filed: 04/03/18 19:03> <Pio Aguilera - Last Filed: 04/03/18 22:31> ED Course and Treatment: 04/03/18 18:14 Ddx: chronic pain 2/2 noncompliance with management and follow-up, possible UTI due to minimal PO fluid intake and infrequent urination, constipation likely 2/ [address] Cerda for pain managment, reports on Oxycodone for pain but isn't working, wants to be back on Duragesic patches; instructed to continue following or to establish with new pain management physician if unhappy with current care Will obtain UA to rule out UTI, instructed patient to drink more water No rash appreciated along buttocks but some muscle wasting noted, instructed patient to participate with his PT and to ambulate regularly, not only sit in chair all day Instructed to follow regimen his PMD placed him on for constipation, informed him drinking more water and ambulating more regularly will also help with constipation, continue self-enemas as needed (patient already reports self- enemas 2-3x per week, brother confirms) Will give Valium 5mg x1 for muscle spasm. Dispo and f/u 04/03/18 19:03 UA negative for infection, notable for elevated specific gravity. Instructed patient to increase PO fluid intake. Instructed to keep appointment with Pain Management doctor abiel. Discharged to home Discussed and reviewed with attending, Dr. Aguilera. (John Rai) 04/03/18 Patient Seen With Resident: In agreement with resident note which contains more details about the patient. Patient was seen and evaluated with resident. Came up with plan and treatment together. 67 yo male, known well to the ED, presents with brother complaining of neck, back and hip pain. History provided by patient and also by brother. Patient takes oxycodone at home for this chronic pain. Denies any numbness, weakness or incontinence. Denies any falls. He also c/o of a buttocks rash and states that his PMD sent him in for a UA. No urinary complaints. In previous physicians notes by Dr. Nuñez/Horacio and old Psych notes there is reference as mentally impaired but no statement of lack of capacity. Brother able to also provide history as well. Agree with physical exam findings of resident. Patient has capacity to make decisions. Impression: Chronic Back Pain Previous notes are similar. There is no clinical evidence of an acute process. Treated with valium. Patient on reevaluation no longer had pain. Brother spoke to Dr. Cerda, pain management, today over the phone and were able to schedule a pain management today after this visit. Patient is able to walk with no ataxia. He is able to bend forward with no issues. He will f/u with Dr. Nuñez in one week and pain management. (Pio Aguilera) - Lab Interpretations Lab Results: Lab Results 04/03/18 18:05: Urine Color Yellow, Urine Appearance Clear, Urine pH 5.5, Ur Specific [place] >= 1.030, Urine Protein 30 H, Urine Glucose (UA) Negative, Urine Ketones Negative, Urine Blood Negative, Urine Nitrate Negative, Urine Bilirubin Negative, Urine Urobilinogen 0.2, Ur Leukocyte Esterase Negative, Urine RBC Negative, Urine WBC 5 - 10, Ur Epithelial Cells 3 - 4, Urine Bacteria Few - Medication Orders Current Medication Orders: Discontinued Medications Diazepam (Valium) 5 mg PO ONCE ONE PRN Reason: Protocol Stop: 04/03/18 17:39 Last Admin: 04/03/18 18:11 Dose: 5 mg Disposition/Present on Arrival - Present on Arrival Any Indicators Present on Arrival: No History of DVT/PE: No History of Uncontrolled Diabetes: No Urinary Catheter: No History of Decub. Ulcer: No History Surgical Site Infection Following: None - Disposition Have Diagnosis and Disposition been Completed?: Yes Disposition Time: 19:06 Patient Plan: Discharge <John Rai - Last Filed: 04/03/18 19:03> - Present on Arrival Any Indicators Present on Arrival: No - Disposition Have Diagnosis and Disposition been Completed?: Yes <Pio Aguilera - Last Filed: 04/03/18 22:31> - Disposition Diagnosis: Dehydration, Generalized muscle ache Disposition: HOME/ ROUTINE Condition: GOOD Discharge Instructions (ExitCare): Dehydration, Adult (DC), Muscle and Bone Pain (DC) Additional Instructions: HUGO QUINTANILLA, thank you for letting us take care of you today. Your providers were Dr. Aguilera and Dr. Rai, and you were treated for BACK PAIN. The emergency medical care you received today was directed at your acute symptoms. If you were prescribed any medication, please fill it and take as directed. It may take several days for your symptoms to resolve. Return to the Emergency Department if your symptoms worsen, do not improve, or if you have any other problems. Drink more water to prevent worsening dehydration. Please contact your doctor or call one of the physicians/clinics you have been referred to that are listed on the Patient Visit Information form that is included in your discharge packet. Please follow up with your pain management physician abiel as previously scheduled. Bring any paperwork you were given at discharge with you along with any medications you are taking to your follow up visit. Our treatment cannot replace ongoing medical care by a primary care provider outside of the emergency department. Thank you for allowing the [facility] team to be part of your care today. If you had an X-Ray or CT scan: A Radiologist will review the ED reading if any change in treatment is needed we will contact you. If you had a blood, urine, or wound culture: It will take several days for the results, if any change in treatment is needed we will contact you. If you had an STI test: It will take 48 hours for the results. Please call after 1 week if you have not heard back. Referrals: Elan Nuñez MD [Primary Care Provider] - Follow up with primary Efrain Cerda MD [Staff Provider] - Follow up with primary Forms: [employer] (Yi)
[2018-04-03 18:44] LABS: PH,URINE 5.5 (4.7-8.0); URINE BILIRUBIN NEGATIVE (NEGATIVE); URINE BLOOD NEGATIVE (NEGATIVE); URINE GLUCOSE (UA) NEGATIVE (NEGATIVE); URINE LEUKOCYTE ESTERASE NEGATIVE Leu/uL (NEGATIVE); URINE PROTEIN 30 mg/dL (<30 mg/dL); URINE UROBILINOGEN 0.2 E.U./dL (<1 E.U./dL)
[2018-04-03 18:45] LABS: URINE APPEARANCE CLEAR (CLEAR); URINE COLOR YELLOW (YELLOW)
[2018-04-03 18:50] LABS: URINE BACTERIA FEW (NEG); URINE RBC NEGATIVE /hpf (0-2)
[2018-04-03 19:17] VITALS: BP 162/89; PULSE 90; RESP 16; TEMP 98.9; O2SAT 96
== END 2018-04-03 19:14 | disposition home or self-care (01) ==
LOC: ED 16:20
DX: E86.0 Dehydration (principal); M79.1 Myalgia

== ENCOUNTER 2018-04-30 14:11 | Emergency (ER) | payer MEDICARE ==
[2018-04-30 14:17] VITALS: BP 136/84; PULSE 72; RESP 18; TEMP 98.6; O2SAT 99; BMI 30.7
[2018-04-30] MEDS ORDERED: MethylPREDNISolone Depo 40 mg/ml (5 ml) Inj IM STA (14:55)
[2018-04-30] MEDS ORDERED: Lidocaine 1% Inj (20ml) IJ STA (14:55)
--- NOTE | 2018-04-30 15:09 | ED PDOC ---
Arrival/HPI - General Chief Complaint: Back Pain Time Seen by Provider: 04/30/18 14:44 Historian: Patient, Family - History of Present Illness Narrative History of Present Illness (Text): 04/30/18 15:03 Pt is a 67 yr old male, whose past medical history includes arthritis, Meniere' s disease, HTN, HLD, chronic back pain, degenerative joint disease, gastritis, and unsteady gait who presents with complaints of bilateral low back and buttock pain for 2 days. Pt reports that he sits bonifacio chair all day, rarely getting up because his right leg feels numb. Pt has chronic LBP and was advised to follow up with Dr Cerda for pain management however pt states he cannot get out of the chair he sits in all day. Brother at bedside says he recently saw Dr Nuñez in office and had labs drawn. Pt also complains of being diabetic and having dry mouth daily despite drinking copious amounts of water. Denies shortness of breath, chest pain, headache, fever, nausea, vomiting, diarrhea, trauma, change in bowel or bladder, change in appetite or any other complaints. Time/Duration: Prior to Arrival Symptom Onset: Gradual Symptom Course: Unchanged Quality: Aching, Pressure Severity Level: 5 Activities at Onset: Rest Context: Sitting, Home Past Medical History - Provider Review Nursing Documentation Reviewed: Yes - Travel History Have you recently traveled outside [place] w/in the past 3 mons?: No - Past History Past History: No Previous - Infectious Disease Hx of Infectious Diseases: None - Tetanus Immunization Tetanus Immunization: Unknown - Past Medical History Past Medical History: Non-Contributing - Cardiac Hx Cardiac Disorders: Yes Hx CO: Yes Hx Hypertension: Yes - Pulmonary Hx Respiratory Disorders: Yes Hx Pneumonia: Yes (11/10/14) - Neurological Hx Neurological Disorder: No - HEENT Hx HEENT Disorder: Yes (WEARS RX GLASSES) Hx Cataracts: Yes - Renal Hx Renal Disorder: Yes Other/Comment: hepatic cyst - Endocrine/Metabolic Hx Endocrine Disorders: No - Hematological/Oncological Hx Blood Disorders: No - Integumentary Hx Dermatological Disorder: No - Musculoskeletal/Rheumatological Hx Musculoskeletal Disorders: Yes Hx Arthritis: Yes Hx Back Pain: Yes Hx Degenerative Joint Disease: Yes Hx Falls: Yes Hx Rhabdomyolysis: Yes Hx Unsteady Gait: Yes (uses cane) Other/Comment: hiatal hernia, lumbar disc disease, lumbar radiculopathy - Gastrointestinal Hx Gastrointestinal Disorders: Yes Hx Diverticulitis: Yes Hx Gastritis: Yes Hx Hemorrhoids: Yes - Genitourinary/Gynecological Hx Genitourinary Disorders: No - Psychiatric Hx Psychophysiologic Disorder: Yes Hx Anxiety: Yes Hx Depression: Yes Hx Substance Use: No - Past Surgical History Past Surgical History: No Previous - Surgical History Hx Cardiac Catheterization: Yes (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%) Hx Open Heart Surgery: Yes - Anesthesia Hx Anesthesia: Yes Hx Anesthesia Reactions: No Hx Malignant Hyperthermia: No - Suicidal Assessment Feels Threatened In Home Enviroment: No Family/Social History - Physician Review Nursing Documentation Reviewed: Yes Family/Social History: Unknown Family HX Smoking Status: Never Smoked Hx Alcohol Use: No Hx Substance Use: No Hx Substance Use Treatment: No Allergies/Home Meds Allergies/Adverse Reactions: Allergies Penicillins Adverse Reaction (Verified 04/30/18 14:17) ANAPHYLAXIS Home Medications: Home Meds Medication Instructions Recorded Confirmed Clonazepam [Klonopin] 0.5 mg PO BID PRN 04/16/14 04/03/18 Lyrica 75 mg PO BID 04/17/15 04/03/18 Amiodarone [Cordarone] 200 mg PO DAILY 08/01/15 04/03/18 Valsartan/Hydrochlorothiazide 1 tab PO DAILY 04/02/16 04/03/18 [Diovan Hct 320-25 mg Tablet] Atorvastatin [Lipitor] 1 tab PO HS 04/03/18 04/03/18 Ergocalciferol [Drisdol 50,000 1 cap PO Q7D 04/03/18 04/03/18 Intl Units Cap] Metoprolol Tartrate [Lopressor] 1 tab PO BID 04/03/18 04/03/18 Omeprazole [Omeprazole] 1 tab PO DAILY 04/03/18 04/03/18 Topiramate [Topamax] 1 tab PO BID 04/03/18 04/03/18 cloNIDine 0.3 mg/24 hr 1 patch TOP Q7D 04/03/18 04/03/18 [catapres-TTS3 0.3 mg/24 hr] Review of Systems - Review of Systems Constitutional: Normal. absent: Fatigue, Fevers Eyes: Normal ENT: Normal Respiratory: Normal. absent: SOB, Cough Cardiovascular: Normal. absent: Chest Pain, Palpitations Gastrointestinal: Normal. absent: Abdominal Pain, Stool Changes, Constipation Genitourinary Male: Normal. absent: Dysuria, Frequency Musculoskeletal: Normal, Back Pain Skin: Normal, Ulcer (right buttocks) Neurological: Normal. absent: Headache Endocrine: Normal. absent: Diaphoresis Hemo/Lymphatic: Normal Psychiatric: Normal Physical Exam Vital Signs Reviewed: Yes Vital Signs Temp Pulse Resp BP Pulse Ox 04/30/18 14:13 98.6 F 72 18 136/84 99 Temperature: Afebrile Blood Pressure: Normal Pulse: Regular Respiratory Rate: Normal Appearance: Positive for: Well-Appearing, Non-Toxic, Comfortable Pain Distress: Mild Mental Status: Positive for: Alert and Oriented X 3 - Systems Exam Head: Present: Atraumatic, Normocephalic Pupils: Present: PERRL Extroacular Muscles: Present: EOMI Conjunctiva: Present: Normal Mouth: Present: Moist Mucous Membranes Neck: Present: Normal Range of Motion Respiratory/Chest: Present: Clear to Auscultation, Good Air Exchange. No: Respiratory Distress, Accessory Muscle Use Cardiovascular: Present: Regular Rate and Rhythm, Normal S1, S2. No: Murmurs Abdomen: Present: Normal Bowel Sounds. No: Tenderness, Distention, Peritoneal Signs Back: Present: Normal Inspection, Paraspinal Tenderness (Bilateral SI jt pain), Decubitus Ulcer (left ischial tuberosity stage II). No: CVA Tenderness, Pain with Leg Raise Upper Extremity: Present: Normal Inspection, Normal ROM, NORMAL PULSES, Neurovascularly Intact, Capillary Refill < 2s. No: Cyanosis, Edema, Tenderness , Swelling, Erythema Lower Extremity: Present: Normal Inspection, NORMAL PULSES, Normal ROM, Neurovascularly Intact, Capillary Refill < 2 s. No: Edema, CALF TENDERNESS, Tenderness, Swelling Neurological: Present: GCS=15, CN II-XII Intact, Speech Normal Skin: Present: Warm, Dry, Normal Color, Other (right ischial tubberosity and sacral decubitis ulcer stage 2). No: Rashes, Diaphoretic Psychiatric: Present: Alert, Oriented x 3, Normal Insight, Normal Concentration Medical Decision Making ED Course and Treatment: 04/30/18 15:10 Impression Pt is a 67 yr old male, whose past medical history includes arthritis, Meniere' s disease, HTN, HLD, chronic back pain, degenerative joint disease, gastritis, and unsteady gait who presents with complaints of bilateral low back and buttock pain for 2 days. One exam, there is a stage 2 decubitus ulcers on the left ischial tuberosity with defined border, no purulent dc or cellulitis point tenderness over the right and left SI jts (-) SLR b/l, Plan wound care Labs SIjt injection w depomedrol and lidocaine mix assess and dispo Progress Note Left ulcer cleaned with sterile water and betadyne, pt continually picks at ulcer with fingers; area was dressed; pt told to change dressing tomorrow Left SI jt space and piriformis muscle injected with lidocaine/depomedrol mixture Pt tolerated injection advised pt to see Dr Cerda as he requires pain management and phsyical therapy On d/c pt commented that he had less pain and walking better Pt later called the Ed form home c/o that left leg felt numb; explained that lidocaine may affect sciatic nerve, changing sensation; strongly encouraged pt to see Dr Cerda tomorrow - Lab Interpretations Lab Results: 04/30/18 16:02 04/30/18 16:02 Lab Results 04/30/18 16:02: Sodium 138, Potassium 4.0, Chloride 97 L, Carbon Dioxide 31, Anion Gap 14, BUN 26 H, Creatinine 1.3, Est GFR ( Amer) > 60, Est GFR ( Non-Af Amer) 55, Random Glucose 105, Calcium 9.1, Total Bilirubin 0.4, AST 40, ALT 34, Alkaline Phosphatase 71, Total Protein 6.8, Albumin 3.7, Globulin 3.1, Albumin/Globulin Ratio 1.2 04/30/18 16:02: WBC 11.7 H, RBC 4.25, Hgb 12.3 L, Hct 35.9 L, MCV 84.5, MCH 28.9 , MCHC 34.3, RDW 13.3, Plt Count 292, MPV 10.2, Gran % 79.4 H, Lymph % (Auto) 12.9 L, [place] % (Auto) 7.3 H, Eos % (Auto) 0.2 L, Baso % (Auto) 0.2, Gran # 9.28 H, Lymph # (Auto) 1.5, [place] # (Auto) 0.9 H, Eos # (Auto) 0.0, Baso # (Auto) 0.02 I have reviewed the lab results: Yes Interpretation: No sign. chg./baseline - Medication Orders Current Medication Orders: Discontinued Medications Lidocaine HCl (Lidocaine 1% (20ml)) 20 ml IJ STAT STA Stop: 04/30/18 14:56 Methylprednisolone Acetate (Depo-Medrol) 20 mg IM ONCE STA Stop: 04/30/18 14:56 - Procedure PROCEDURE NOTE (Text): 04/30/18 20:07 PROCEDURE: SI joint injection Performed by the emergency provider Consent: ~Informed consent, after discussion of the risks, benefits, and alternatives to the procedure was obtained. Timeout: A timeout to verify the correct patient, procedure, and site was performed.~ Procedure Site: left SI jt Indication: joint pain and tenderness Preparation: Mixture of lidocaine1% 5cc and depomedrol 40mg 1ccin a 10cc syringe with 25G needle Procedure: Area was prepped with beadyne and alcohol, draped in the usual sterile manner; the SIjt space was located and infiltrated with a mixture of depomedrol and lidocaine; no blood loss Post-procedure: The patient tolerated the procedure well with no immediate complications Disposition/Present on Arrival - Present on Arrival Any Indicators Present on Arrival: Yes History of DVT/PE: No History of Uncontrolled Diabetes: No Urinary Catheter: No History of Decub. Ulcer: No History Surgical Site Infection Following: None - Disposition Have Diagnosis and Disposition been Completed?: Yes Diagnosis: Sciatica, left side, Decubitus ulcer of buttock, stage 2, Sacroiliitis, not elsewhere classified Disposition: HOME/ ROUTINE Disposition Time: 17:23 Patient Plan: Discharge Condition: STABLE Discharge Instructions (ExitCare): Pressure Sores (DC), Sciatica (DC), Sciatica Exercises Additional Instructions: HUGO QUINTANILLA, thank you for letting us take care of you today. Your provider was Yon Bill DO and STAR Liu and you were treated for an Ulcer on the Buttocks and Low Back Pain. The emergency medical care you received today was directed at your acute symptoms. If you were prescribed any medication, please fill it and take as directed. It may take several days for your symptoms to resolve. Return to the Emergency Department if your symptoms worsen, do not improve, or if you have any other problems. PLEASE SEE DR CERDA FOR LOW BACK PAIN MANAGEMENT; TRY TO GET UP FROM A SEATED POSITION FREQUENTLY THROUGHOUT THE DAY TO AVOID WORSENING OF SCIATIC NERVE PAIN AND ULCER Please contact your doctor or call one of the physicians/clinics you have been referred to that are listed on the Patient Visit Information form that is included in your discharge packet. Bring any paperwork you were given at discharge with you along with any medications you are taking to your follow up visit. Our treatment cannot replace ongoing medical care by a primary care provider outside of the emergency department. Thank you for allowing the [facility] team to be part of your care today. If you had an X-Ray or CT scan: A Radiologist will review the ED reading if any change in treatment is needed we will contact you. If you had a blood, urine, or wound culture: It will take several days for the results, if any change in treatment is needed we will contact you. Prescriptions: traMADol [Ultram] 50 mg PO TID #15 tab Referrals: Elan Nuñez MD [Primary Care Provider] - Follow up with primary Efrain Cerda MD [Staff Provider] - Follow up with primary Forms: [employer] (Wallisian)
[2018-04-30 16:07] LABS: BASO # 0.02 K/mm3 (0.0-2.0); BASO % 0.2 % (0.0-3.0); EOS % 0.2 % (1.5-5.0); GRAN # 9.28 (1.4-6.5); GRAN % 79.4 % (50.0-68.0); HEMOGLOBIN 12.3 g/dL (14.0-18.0); LYMPH # 1.5 (1.2-3.4); LYMPH % 12.9 % (22.0-35.0); MEAN CELL VOLUME 84.5 fl (80.0-105.0); MEAN CORPUSCULAR HEMOGLOBIN 28.9 pg (25.0-35.0); MEAN CORPUSCULAR HGB CONC 34.3 g/dl (31.0-37.0); MEAN PLATELET VOLUME 10.2 fl (7.0-11.0); MONO # 0.9 (0.1-0.6); MONO % 7.3 % (1.0-6.0); RBC 4.25 10^6/uL (3.5-6.1); RED CELL DISTRIBUTION WIDTH 13.3 % (11.5-14.5); WHITE BLOOD COUNT 11.7 10^3/ul (4.5-11.0)
[2018-04-30 16:16] LABS: ALB/GLOB RATIO 1.2 (1.1-1.8); ALBUMIN 3.7 g/dL (3.0-4.8); ALT/SGPT 34 U/L (7-56); AST/SGOT 40 U/L (17-59); BLOOD UREA NITROGEN 26 mg/dL (7-21); CALCIUM 9.1 mg/dL (8.4-10.5); GFR AFRICAN-AMERICAN > 60; GFR NON-AFRICAN AMERICAN 55
== END 2018-04-30 17:45 | disposition home or self-care (01) ==
LOC: ED 14:11
DX: M54.32 Sciatica, left side (principal); L89.322 Pressure ulcer of left buttock, stage 2; M46.1 Sacroiliitis, not elsewhere classified; E11.9 Type 2 diabetes mellitus without complications; E78.5 Hyperlipidemia, unspecified; I10 Essential (primary) hypertension; H81.09 Meniere's disease, unspecified ear

== ENCOUNTER 2018-05-07 14:39 | Emergency (ER) | payer MEDICARE ==
[2018-05-07 14:39] VITALS: BMI 30.7
--- NOTE | 2018-05-07 15:34 | ED PDOC ---
Arrival/HPI <Lambert Lowe - Last Filed: 05/07/18 16:37> - General Historian: Patient - History of Present Illness Time/Duration: > week Symptom Onset: Gradual Symptom Course: Unchanged <Roxanna Ruiz - Last Filed: 05/07/18 17:03> - General Chief Complaint: Pain, Chronic Time Seen by Provider: 05/07/18 15:12 - History of Present Illness Narrative History of Present Illness (Text): 05/07/18 15:32 Pt is a 67 year old male, whose past medical history includes arthritis, Meniere 's disease, HTN, HLD, chronic back pain, degenerative joint disease, gastritis, and unsteady gait presents to the ED for low back pain and pain in his buttock. Patient was recently seen in the ED on 04/30/18 for the same complaint. At that time he received an injection in the SI joint. Patient states that he did not get relief from the injection and still has pain. Patient was advised to follow up with his pain management, Dr Cerda, however he states that he has not seen him because he has trouble getting around. Patient admits to limited mobility. He tried taking his home medication oxycodone for the pain with no relief in symptoms. Patient's brother is at the bedside and states that he spends 99% of his time sitting in the chair and only ambulates when he needs to use the bathroom. Denies headaches, dizziness, cp, palpitations, sob, abdominal pain, urinary symptoms, loss of bowel/bladder function, saddle anesthesia. Admits to to constipation, last bowel movement was yesterday. Also admits to having dry mouth despite drinking adequate amount of water. (Roxanna Ruiz) Past Medical History - Provider Review Nursing Documentation Reviewed: Yes - Past History Past History: No Previous - Infectious Disease Hx of Infectious Diseases: None - Tetanus Immunization Tetanus Immunization: Unknown - Past Medical History Past Medical History: Non-Contributing - Cardiac Hx Cardiac Disorders: Yes Hx [place]: Yes Hx Hypertension: Yes - Pulmonary Hx Respiratory Disorders: Yes Hx Pneumonia: Yes (11/10/14) - Neurological Hx Neurological Disorder: No - HEENT Hx HEENT Disorder: Yes (WEARS RX GLASSES) Hx Cataracts: Yes - Renal Hx Renal Disorder: Yes Other/Comment: hepatic cyst - Endocrine/Metabolic Hx Endocrine Disorders: No - Hematological/Oncological Hx Blood Disorders: No - Integumentary Hx Dermatological Disorder: No - Musculoskeletal/Rheumatological Hx Musculoskeletal Disorders: Yes Hx Arthritis: Yes Hx Back Pain: Yes Hx Degenerative Joint Disease: Yes Hx Falls: Yes Hx Rhabdomyolysis: Yes Hx Unsteady Gait: Yes (uses cane) Other/Comment: hiatal hernia, lumbar disc disease, lumbar radiculopathy - Gastrointestinal Hx Gastrointestinal Disorders: Yes Hx Diverticulitis: Yes Hx Gastritis: Yes Hx Hemorrhoids: Yes - Genitourinary/Gynecological Hx Genitourinary Disorders: No - Psychiatric Hx Psychophysiologic Disorder: Yes Hx Anxiety: Yes Hx Depression: Yes Hx Substance Use: No - Past Surgical History Past Surgical History: No Previous - Surgical History Hx Cardiac Catheterization: Yes (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%) Hx Open Heart Surgery: Yes - Anesthesia Hx Anesthesia: Yes Hx Anesthesia Reactions: No Hx Malignant Hyperthermia: No - Suicidal Assessment Feels Threatened In Home Enviroment: No <Roxanna Ruiz - Last Filed: 05/07/18 17:03> Family/Social History - Physician Review Nursing Documentation Reviewed: Yes Family/Social History: No Known Family HX Smoking Status: Never Smoked Hx Alcohol Use: No Hx Substance Use: No Hx Substance Use Treatment: No <Roxanna Ruiz - Last Filed: 05/07/18 17:03> Allergies/Home Meds <Lambert Lowe - Last Filed: 05/07/18 16:37> <Roxanna Ruiz - Last Filed: 05/07/18 17:03> Allergies/Adverse Reactions: Allergies Penicillins Adverse Reaction (Verified 05/07/18 14:42) ANAPHYLAXIS Home Medications: Home Meds Medication Instructions Recorded Confirmed Clonazepam [Klonopin] 0.5 mg PO BID PRN 04/16/14 05/07/18 Lyrica 75 mg PO BID 04/17/15 05/07/18 Amiodarone [Cordarone] 200 mg PO DAILY 08/01/15 05/07/18 Valsartan/Hydrochlorothiazide 1 tab PO DAILY 04/02/16 05/07/18 [Diovan Hct 320-25 mg Tablet] Atorvastatin [Lipitor] 1 tab PO HS 04/03/18 05/07/18 Ergocalciferol [Drisdol 50,000 1 cap PO Q7D 04/03/18 05/07/18 Intl Units Cap] Metoprolol Tartrate [Lopressor] 1 tab PO BID 04/03/18 05/07/18 Omeprazole [Omeprazole] 1 tab PO DAILY 04/03/18 05/07/18 Topiramate [Topamax] 1 tab PO BID 04/03/18 05/07/18 cloNIDine 0.3 mg/24 hr 1 patch TOP Q7D 04/03/18 05/07/18 [catapres-TTS3 0.3 mg/24 hr] Review of Systems - Review of Systems Constitutional: Normal, Weight Change. absent: Fatigue Eyes: Normal. absent: Vision Changes ENT: Normal. absent: Hearing Changes Respiratory: Normal. absent: SOB, Cough, Wheezing Cardiovascular: Normal. absent: Chest Pain, Palpitations Gastrointestinal: Normal, Constipation. absent: Abdominal Pain, Diarrhea, Nausea, Vomiting Musculoskeletal: Back Pain. absent: Normal Skin: Ulcer. absent: Pruritis Neurological: absent: Headache, Dizziness <Roxanna Ruiz - Last Filed: 05/07/18 17:03> Physical Exam Vital Signs Reviewed: Yes Appearance: Positive for: Well-Appearing, Non-Toxic Pain Distress: Mild Mental Status: Positive for: Alert and Oriented X 3 - Systems Exam Head: Present: Atraumatic, Normocephalic Pupils: Present: PERRL Extroacular Muscles: Present: EOMI Conjunctiva: Present: Normal Ears: Present: Normal Mouth: Present: Moist Mucous Membranes Neck: Present: Normal Range of Motion Respiratory/Chest: Present: Good Air Exchange. No: Accessory Muscle Use Cardiovascular: Present: Regular Rate and Rhythm, Normal S1, S2 Abdomen: Present: Normal Bowel Sounds. No: Tenderness Back: Present: Decubitus Ulcer (stage II pressure ulcer on left buttock) Upper Extremity: Present: Normal Inspection. No: Cyanosis, Edema Lower Extremity: Present: NORMAL PULSES. No: CALF TENDERNESS Neurological: Present: Speech Normal Skin: Present: Warm, Dry, Normal Color, Other (Erythema overlying sacrum) <Roxanna Ruiz - Last Filed: 05/07/18 17:03> Vital Signs Temp Pulse Resp BP Pulse Ox 05/07/18 14:42 97.8 F 65 16 136/78 99 Medical Decision Making <Lambert Lowe - Last Filed: 05/07/18 16:37> <Roxanna Ruiz - Last Filed: 05/07/18 17:03> ED Course and Treatment: 05/07/18 16:13 patient seen for focal pain at the sacral area with small stage 2 decub ulcer and stage 1 ulcer. there is no foul odor, no purulent drainage, no sig tenderness over the bony aspect of the sacrum. patient reports that this pain is chronic. at this time will provide analgesics, discharge and refer patient to pcp/pain management. (Lambert Lowe) - Medication Orders Current Medication Orders: Discontinued Medications Acetaminophen (Tylenol 325mg Tab) 975 mg PO STAT STA Stop: 05/07/18 15:31 Last Admin: 05/07/18 16:26 Dose: 975 mg MAR Pain/Vitals Document 05/07/18 16:26 HI (Rec: 05/07/18 16:26 [id number] Pain Reassessment Is This A Pain ReAssessment? No Ketorolac Tromethamine (Toradol) 30 mg IM STAT STA Stop: 05/07/18 15:31 Last Admin: 05/07/18 16:26 Dose: 30 mg MAR Pain Assessment Document 05/07/18 16:26 HI (Rec: 05/07/18 16:26 [id number] Pain Reassessment Is this a pain reassessment? No IM Administration Charges Document 05/07/18 16:26 HI (Rec: 05/07/18 16:26 [id number] Charges for Administration # of IM Administrations 1 Disposition/Present on Arrival - Present on Arrival Any Indicators Present on Arrival: No - Disposition Have Diagnosis and Disposition been Completed?: Yes Disposition Time: 16:37 Patient Plan: Discharge <Lambert Lowe - Last Filed: 05/07/18 16:37> - Present on Arrival History of DVT/PE: No History of Uncontrolled Diabetes: No Urinary Catheter: No History of Decub. Ulcer: No History Surgical Site Infection Following: None <Roxanna Ruiz - Last Filed: 05/07/18 17:03> - Disposition Diagnosis: Chronic low back pain, Radiculopathy Disposition: HOME/ ROUTINE Patient Problems: Current Active Problems Problem Status Onset Chronic low back pain Acute Radiculopathy Acute Condition: STABLE Discharge Instructions (ExitCare): Radiculopathy Print Language: NICARAGUAN Additional Instructions: you must follow up with your primary care doctor and pain management doctor. Forms: [employer] (Thai)
[2018-05-07 18:36] VITALS: BP 142/72; PULSE 60; RESP 20; TEMP 98.7; O2SAT 97
== END 2018-05-07 16:50 | disposition home or self-care (01) ==
LOC: ED 14:39
DX: M54.5 Low back pain (principal); G89.29 Other chronic pain; M54.16 Radiculopathy, lumbar region
CPT/HCPCS: 96372; 99283; J1885

== ENCOUNTER 2018-05-21 12:48 | Emergency (ER) | payer MEDICARE ==
[2018-05-21 12:48] VITALS: BMI 30.7
[2018-05-21 13:01] VITALS: RESP 18
--- NOTE | 2018-05-21 13:16 | ED PDOC ---
Arrival/HPI - General Chief Complaint: Abdominal Pain Time Seen by Provider: 05/21/18 12:56 Historian: Patient, Family - History of Present Illness Narrative History of Present Illness (Text): 05/21/18 13:16 Pt is a 67 year old male, whose past medical history includes arthritis, HTN, HLD, chronic back pain, degenerative joint disease, gastritis, and Meniere disease presents to the ED for low back pain and pain in his buttock. Patient has been coming in weekly for the same symptoms for the past month. He's received SI joint injections which he states do not help. Patient was advised to follow up with his pain management, Dr Cerda. He states that he saw Dr. Cerda who prescribed oxycodone but that this has not helped either. Patient denies being bedbound but his brother who accompanies him states that he lies in bed most of the time. Patient's brother states that he ambulates to the bathroom only. Denies headaches, dizziness, cp, palpitations, sob, abdominal pain, urinary symptoms, loss of bowel/bladder function, saddle anesthesia. He also complains of constipation and stomach upset from the oxycodone. Past Medical History - Provider Review Nursing Documentation Reviewed: Yes - Past History Past History: No Previous - Infectious Disease Hx of Infectious Diseases: None - Tetanus Immunization Tetanus Immunization: Unknown - Past Medical History Past Medical History: Non-Contributing - Cardiac Hx Cardiac Disorders: Yes Hx CT: Yes Hx Hypertension: Yes - Pulmonary Hx Respiratory Disorders: Yes Hx Pneumonia: Yes (11/10/14) - Neurological Hx Neurological Disorder: No - HEENT Hx HEENT Disorder: Yes (WEARS RX GLASSES) Hx Cataracts: Yes - Renal Hx Renal Disorder: Yes Other/Comment: hepatic cyst - Endocrine/Metabolic Hx Endocrine Disorders: No - Hematological/Oncological Hx Blood Disorders: No - Integumentary Hx Dermatological Disorder: No - Musculoskeletal/Rheumatological Hx Musculoskeletal Disorders: Yes Hx Arthritis: Yes Hx Back Pain: Yes Hx Degenerative Joint Disease: Yes Hx Falls: Yes Hx Rhabdomyolysis: Yes Hx Unsteady Gait: Yes (uses cane) Other/Comment: hiatal hernia, lumbar disc disease, lumbar radiculopathy - Gastrointestinal Hx Gastrointestinal Disorders: Yes Hx Diverticulitis: Yes Hx Gastritis: Yes Hx Hemorrhoids: Yes - Genitourinary/Gynecological Hx Genitourinary Disorders: No - Psychiatric Hx Psychophysiologic Disorder: Yes Hx Anxiety: Yes Hx Depression: Yes Hx Substance Use: No - Past Surgical History Past Surgical History: No Previous - Surgical History Hx Cardiac Catheterization: Yes (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%) Hx Open Heart Surgery: Yes - Anesthesia Hx Anesthesia: Yes Hx Anesthesia Reactions: No Hx Malignant Hyperthermia: No - Suicidal Assessment Feels Threatened In Home Enviroment: No Family/Social History - Physician Review Nursing Documentation Reviewed: Yes Family/Social History: No Known Family HX Smoking Status: Never Smoked Hx Alcohol Use: No Hx Substance Use: No Hx Substance Use Treatment: No Allergies/Home Meds Allergies/Adverse Reactions: Allergies Penicillins Adverse Reaction (Verified 05/21/18 13:11) ANAPHYLAXIS Home Medications: Home Meds Medication Instructions Recorded Confirmed Clonazepam [Klonopin] 0.5 mg PO BID PRN 04/16/14 05/21/18 Lyrica 75 mg PO BID 04/17/15 05/21/18 Amiodarone [Cordarone] 200 mg PO DAILY 08/01/15 05/21/18 Valsartan/Hydrochlorothiazide 1 tab PO DAILY 04/02/16 05/21/18 [Diovan Hct 320-25 mg Tablet] Atorvastatin [Lipitor] 1 tab PO HS 04/03/18 05/21/18 Ergocalciferol [Drisdol 50,000 1 cap PO Q7D 04/03/18 05/21/18 Intl Units Cap] Metoprolol Tartrate [Lopressor] 1 tab PO BID 04/03/18 05/21/18 Omeprazole [Omeprazole] 1 tab PO DAILY 04/03/18 05/21/18 Topiramate [Topamax] 1 tab PO BID 04/03/18 05/21/18 cloNIDine 0.3 mg/24 hr 1 patch TOP Q7D 04/03/18 05/21/18 [catapres-TTS3 0.3 mg/24 hr] Review of Systems - Review of Systems Systems not reviewed;Unavailable: Uncooperative Constitutional: absent: Fevers, Night Sweats Eyes: absent: Vision Changes Cardiovascular: Chest Pain, THOMAS. absent: Palpitations, Edema Gastrointestinal: Abdominal Pain, Constipation Genitourinary Male: absent: Urinary Output Changes Musculoskeletal: Arthralgias, Myalgias. absent: Joint Swelling Skin: Rash, Pruritis, Skin Lesions Neurological: absent: Headache, Dizziness Psychiatric: Anxiety Physical Exam - Physical Exam Physical Exam Limitations: Uncooperative Vital Signs Reviewed: Yes Vital Signs Temp Pulse Resp BP Pulse Ox 05/21/18 15:03 98.7 F 68 18 150/57 L 100 05/21/18 13:00 98.9 F 70 18 146/61 99 Temperature: Afebrile Blood Pressure: Normal Pulse: Regular Respiratory Rate: Normal Appearance: Positive for: Ill-Appearing, Unkept, Uncomfortable Pain Distress: Mild Mental Status: Positive for: Alert and Oriented X 3, Agitated - Systems Exam Head: Present: Atraumatic, Normocephalic Pupils: Present: PERRL Extroacular Muscles: Present: EOMI Mouth: Present: Moist Mucous Membranes Nose (External): Present: Atraumatic Neck: Present: Normal Range of Motion Respiratory/Chest: Present: Clear to Auscultation. No: Accessory Muscle Use, Decreased Breath Sounds, Rales, Retracting, Rhonchi Cardiovascular: Present: Regular Rate and Rhythm, Normal S1, S2. No: Murmurs, Rub, Gallop Abdomen: Present: Tenderness. No: Peritoneal Signs, Mass/Organomegaly Upper Extremity: Present: Normal Inspection. No: Cyanosis, Edema Lower Extremity: Present: Normal Inspection. No: Edema Skin: Present: Cold, Pale, Other (erythematous patch in sacral area c/w decubitus ulcer). No: Diaphoretic Psychiatric: Present: Alert, Oriented x 3, Anxious, Agitated Medical Decision Making ED Course and Treatment: 05/21/18 13:26 Today, patient states he has "pain all over." When asking him to pinpoint the exact location of pain, he points to the abdomen. He states the pain is chronic and uncontrolled. He is concerned that he has "a bone protruding out" on his backside. Will provide treatment for sacral decubitus ulcer today. We encouraged the patient to turn in bed frequently if he is not going to stay in bed most of the time. At this time there is no foul odor, no purulent drainage or tenderness over the bony aspect of the sacrum. At this time, we will defer to pain management for his pain control issues as he has been in multiple times for the same complaint. We will perform a UA to make sure he has no UTI. 05/21/18 14:43 UA negative for infection. We will inform patient that he needs to visit his pain management physician for his pain medicine. The ER is not the place to come and receive pain medicine. - Lab Interpretations Lab Results: Lab Results 05/21/18 13:55: Urine Color Light yellow, Urine Appearance Clear, Urine pH 6.5, Ur Specific [place] 1.010, Urine Protein Trace H, Urine Glucose (UA) 100 H, Urine Ketones Negative, Urine Blood Negative, Urine Nitrate Negative, Urine Bilirubin Negative, Urine Urobilinogen 0.2, Ur Leukocyte Esterase Negative, Urine RBC 0 - 2, Urine WBC 0 - 2, Ur Epithelial Cells None, Urine Bacteria Few 05/21/18 13:55: Urine Opiates Screen Negative, Urine Methadone Screen Negative, Ur Barbiturates Screen Negative, Ur Phencyclidine Scrn Negative, Ur Amphetamines Screen Negative, U Benzodiazepines Scrn Negative, U Oth Cocaine Metabols Negative, U Cannabinoids Screen Negative I have reviewed the lab results: Yes Interpretation: All labs normal Disposition/Present on Arrival - Present on Arrival Any Indicators Present on Arrival: Yes History of DVT/PE: No History of Uncontrolled Diabetes: No Urinary Catheter: No History of Decub. Ulcer: Yes History Surgical Site Infection Following: None - Disposition Have Diagnosis and Disposition been Completed?: Yes Diagnosis: Pressure ulcer, Sciatica of right side Disposition: HOME/ ROUTINE Disposition Time: 14:45 Patient Plan: Discharge Condition: FAIR Forms: [employer] ([place]) - Notes Notes (Text): 05/21/18 14:46 Please follow up with your pain management physician regarding your pain medicines. In the emergency room, we do not specialize in pain management and are unable to help you with this.
[2018-05-21 14:18] LABS: PH,URINE 6.5 (4.7-8.0); URINE BILIRUBIN NEGATIVE (NEGATIVE); URINE BLOOD NEGATIVE (NEGATIVE); URINE GLUCOSE (UA) 100 mg/dL (NEGATIVE); URINE LEUKOCYTE ESTERASE NEGATIVE Leu/uL (NEGATIVE); URINE PROTEIN TRACE mg/dL (<30 mg/dL); URINE UROBILINOGEN 0.2 E.U./dL (<1 E.U./dL)
[2018-05-21 14:26] LABS: URINE APPEARANCE CLEAR (CLEAR); URINE COLOR LIGHT YELLOW (YELLOW)
[2018-05-21 14:31] LABS: OPIATES, UR NEGATIVE (NEGATIVE)
[2018-05-21 14:34] LABS: BARBITURATES, UR NEGATIVE (NEGATIVE); BENZODIAZEPINES, UR NEGATIVE (NEGATIVE); PHENCYCLIDINE, UR NEGATIVE (NEGATIVE); URINE RBC 0 - 2 /hpf (0-2); URINE WBC 0 - 2 /hpf (0-6)
[2018-05-21 14:35] LABS: URINE BACTERIA FEW (NEG)
[2018-05-21 15:04] VITALS: BP 150/57; PULSE 68; TEMP 98.7; O2SAT 100
== END 2018-05-21 15:03 | disposition home or self-care (01) ==
LOC: ED 12:48
DX: M54.31 Sciatica, right side (principal); L89.159 Pressure ulcer of sacral region, unspecified stage
CPT/HCPCS: 81001; 99285; G0480

== ENCOUNTER 2018-09-24 14:27 | Emergency (ER) | payer MEDICARE ==
[2018-09-24 15:46] VITALS: BMI 29.7
[2018-09-24 16:00] VITALS: BP 194/97; PULSE 68; RESP 18; TEMP 98.3; O2SAT 98
--- NOTE | 2018-09-24 16:02 | ED PDOC ---
Arrival/HPI - General Time Seen by Provider: 09/24/18 15:42 Historian: Patient - History of Present Illness Narrative History of Present Illness (Text): 09/24/18 15:57 68 year old male, whose past medical history includes arthritis, Meniere's disease, HTN, HLD, chronic back pain, degenerative joint disease, gastritis presents to the emergency department complaining of left sided buttocks pain, for the past few days. Patient states that the pain radiates from his left sided buttocks all the way down past his knee and he treats it with oxycodon, with no improvement. He denies any fall or trauma. No loss of bowel or bladder movement. No IVDU or fever. He report he lost his physical therapist a month ago due to an insurance problem and has not been keeping up with his exercises. He denies fevers, chills, headache, dizziness, chest pain, shortness of breath, dyspnea on exertion, cough, abdominal pain, nausea, vomiting, diarrhea, back pain, neck pain, or any other complaint. Time/Duration: < week Symptom Onset: Gradual Symptom Course: Unchanged Activities at Onset: Light Context: Home Past Medical History - Provider Review Nursing Documentation Reviewed: Yes - Past History Past History: No Previous - Infectious Disease Hx of Infectious Diseases: None - Tetanus Immunization Tetanus Immunization: Unknown - Past Medical History Past Medical History: Non-Contributing - Cardiac Hx Cardiac Disorders: Yes Hx NV: Yes Hx Hypertension: Yes - Pulmonary Hx Respiratory Disorders: Yes Hx Pneumonia: Yes (11/10/14) - Neurological Hx Neurological Disorder: No - HEENT Hx HEENT Disorder: Yes (WEARS RX GLASSES) Hx Cataracts: Yes - Renal Hx Renal Disorder: Yes Other/Comment: hepatic cyst - Endocrine/Metabolic Hx Endocrine Disorders: No - Hematological/Oncological Hx Blood Disorders: No - Integumentary Hx Dermatological Disorder: No - Musculoskeletal/Rheumatological Hx Musculoskeletal Disorders: Yes Hx Arthritis: Yes Hx Back Pain: Yes Hx Degenerative Joint Disease: Yes Hx Falls: Yes Hx Rhabdomyolysis: Yes Hx Unsteady Gait: Yes (uses cane) Other/Comment: hiatal hernia, lumbar disc disease, lumbar radiculopathy - Gastrointestinal Hx Gastrointestinal Disorders: Yes Hx Diverticulitis: Yes Hx Gastritis: Yes Hx Hemorrhoids: Yes - Genitourinary/Gynecological Hx Genitourinary Disorders: No - Psychiatric Hx Psychophysiologic Disorder: Yes Hx Anxiety: Yes Hx Depression: Yes Hx Substance Use: No - Past Surgical History Past Surgical History: No Previous - Surgical History Hx Cardiac Catheterization: Yes (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%) Hx Open Heart Surgery: Yes - Anesthesia Hx Anesthesia: Yes Hx Anesthesia Reactions: No Hx Malignant Hyperthermia: No - Suicidal Assessment Feels Threatened In Home Enviroment: No Family/Social History - Physician Review Nursing Documentation Reviewed: Yes Family/Social History: No Known Family HX Smoking Status: Never Smoked Hx Alcohol Use: No Hx Substance Use: No Hx Substance Use Treatment: No Allergies/Home Meds Allergies/Adverse Reactions: Allergies Penicillins Adverse Reaction (Verified 09/24/18 15:42) ANAPHYLAXIS Home Medications: Home Meds Medication Instructions Recorded Confirmed RX: Clonazepam [Klonopin] 0.5 mg PO BID PRN 04/16/14 05/21/18 Lyrica 75 mg PO BID 04/17/15 05/21/18 RX: Amiodarone [Cordarone] 200 mg PO DAILY 08/01/15 05/21/18 Valsartan/Hydrochlorothiazide 1 tab PO DAILY 04/02/16 05/21/18 [Diovan Hct 320-25 mg Tablet] Atorvastatin [Lipitor] 1 tab PO HS 04/03/18 05/21/18 Ergocalciferol [Drisdol 50,000 1 cap PO Q7D 04/03/18 05/21/18 Intl Units Cap] Omeprazole 1 tab PO DAILY 04/03/18 05/21/18 RX: Metoprolol Tartrate [Lopressor] 1 tab PO BID 04/03/18 05/21/18 RX: cloNIDine 0.3 mg/24 hr 1 patch TOP Q7D 04/03/18 05/21/18 [catapres-TTS3 0.3 mg/24 hr] Topiramate [Topamax] 1 tab PO BID 04/03/18 05/21/18 Review of Systems - Physician Review All systems were reviewed & negative as marked: Yes - Review of Systems Constitutional: absent: Fevers Respiratory: absent: SOB, Cough Cardiovascular: absent: Chest Pain Gastrointestinal: absent: Abdominal Pain, Constipation, Diarrhea, Nausea, Vomiting Genitourinary Male: absent: Other Musculoskeletal: Other (left sided buttocks pain that radiates down his left leg to knee). absent: Arthralgias, Back Pain, Neck Pain, Joint Swelling, Myalgias Skin: absent: Rash, Pruritis, Laceration Neurological: absent: Headache, Dizziness, Focal Weakness, Gait Changes Physical Exam Vital Signs Reviewed: Yes Temperature: Afebrile Pulse: Regular Respiratory Rate: Normal Appearance: Positive for: Well-Appearing, Non-Toxic, Comfortable Pain Distress: None Mental Status: Positive for: Alert and Oriented X 3 - Systems Exam Head: Present: Atraumatic, Normocephalic Pupils: Present: PERRL Extroacular Muscles: Present: EOMI Conjunctiva: Present: Normal Mouth: Present: Moist Mucous Membranes Neck: Present: Normal Range of Motion Respiratory/Chest: Present: Clear to Auscultation, Good Air Exchange. No: Respiratory Distress, Accessory Muscle Use Cardiovascular: Present: Regular Rate and Rhythm, Normal S1, S2. No: Murmurs Abdomen: No: Tenderness, Distention, Peritoneal Signs Back: Present: Normal Inspection, Pain with Leg Raise ((L buttocks)). No: CVA Tenderness, Midline Tenderness Upper Extremity: Present: Normal Inspection. No: Cyanosis, Edema Lower Extremity: Present: Normal Inspection, NORMAL PULSES, Normal ROM, Neurovascularly Intact, Capillary Refill < 2 s. No: Edema, Cyanosis, Tenderness, Erythema Neurological: Present: GCS=15, CN II-XII Intact, Speech Normal, Motor Func Grossly Intact (positive straight leg test ), Normal Cerebellar Funct Skin: Present: Warm, Dry, Normal Color. No: Rashes Psychiatric: Present: Alert, Oriented x 3, Normal Insight, Normal Concentration Medical Decision Making ED Course and Treatment: 09/24/18 16:04 Impression: 68 year old male who presents to the emergency department complaining of left sided buttocks pain radiating past L knee. Likely sciatica type pain. No ulceration noted. No rectal pain. No erythema or crepitus noted. Pt has longstanding pain to L buttocks seen in this ED and pt notes pain feels same. No use of pain meds today per pt- had some relief from percocet today, although pt notes that without PT his improvement in pain has stagnated. No midline tenderness. No enuresis / encoparesis or saddle anesthesia. Plan: -- Valium -- Sacrum or Coocyx X-ray -- Reassess and disposition Prior Visits: Notes and results from previous visits were reviewed. Progress Notes: 09/24/18 18:27 Xray reviewed, unremarkable Pain improved, Walking well. Remains n/v intact distally w/ out signs of cauda equina. Pt notes he did not take his percocet at home today. instructed pt to resume percocet today after 6 hours of valium 1st dose. He is agreeable to plan. - Scribe Statement The provider has reviewed the documentation as recorded by the Scribe Tahira Styles Provider Scribe Attestation: All medical record entries made by the Scribe were at my direction and personally dictated by me. I have reviewed the chart and agree that the record accurately reflects my personal performance of the history, physical exam, medi jase decision making, and the department course for this patient. I have also personally directed, reviewed, and agree with the discharge instructions and disposition. Disposition/Present on Arrival - Present on Arrival Any Indicators Present on Arrival: No History of DVT/PE: No History of Uncontrolled Diabetes: No Urinary Catheter: No History Surgical Site Infection Following: None - Disposition Have Diagnosis and Disposition been Completed?: Yes Diagnosis: Sciatica Disposition: HOME/ ROUTINE Disposition Time: 18:25 Patient Problems: Current Active Problems Problem Status Onset Sciatica Acute Condition: GOOD Discharge Instructions (ExitCare): Sciatica, Sciatica Exercises Additional Instructions: YOU HAVE SCIATICA. FOLLOW UP WITH THE CLINIC AND YOUR PAIN MANAGEMENT DOCTOR. CONTINUE TAKING YOUR PAIN MEDICATIONS AT HOME PREVIOUSLY PRESCRIBED. HUGO QUINTANILLA, thank you for letting us take care of you today. Your provider was Edward Meza and you were treated for pain in the buttocks. The emergency medical care you received today was directed at your acute symptoms. If you were prescribed any medication, please fill it and take as directed. It may take several days for your symptoms to resolve. Return to the Emergency Department if your symptoms worsen, do not improve, or if you have any other problems. Please contact your doctor or call one of the physicians/clinics you have been referred to that are listed on the Patient Visit Information form that is included in your discharge packet. Bring any paperwork you were given at discharge with you along with any medications you are taking to your follow up visit. Our treatment cannot replace ongoing medical care by a primary care provider outside of the emergency department. Thank you for allowing the [facility] team to be part of your care today. If you had an X-Ray or CT scan: A Radiologist will review the ED reading if any change in treatment is needed we will contact you. If you had a blood, urine, or wound culture: It will take several days for the results, if any change in treatment is needed we will contact you. If you had an STI test: It will take 48 hours for the results. Please call after 1 week if you have not heard back. Referrals: [facility] [Outside] - Follow up with primary [facility] [place] - Follow up with primary
--- NOTE | 2018-09-25 11:12 | RAD ---
Date of service: 09/24/2018 PROCEDURE: Radiographs of the Sacrum and Coccyx HISTORY: sacral pain COMPARISON: None available. TECHNIQUE: Frontal and lateral views of the sacrum and coccyx FINDINGS: BONES: Sacrum and coccyx unremarkable. No fracture or focal lesion. SACROILIAC JOINTS: Unremarkable. OTHER FINDINGS: None. IMPRESSION: Unremarkable radiographs of the sacrum and coccyx.
== END 2018-09-24 19:00 | disposition home or self-care (01) ==
LOC: ED 14:27
DX: M54.30 Sciatica, unspecified side (principal); E78.5 Hyperlipidemia, unspecified; I10 Essential (primary) hypertension; H81.09 Meniere's disease, unspecified ear

== ENCOUNTER 2018-11-14 14:31 | Emergency (ER) | payer MEDICARE ==
[2018-11-14 14:36] VITALS: RESP 18; TEMP 97.9; BMI 33.3
--- NOTE | 2018-11-14 15:14 | ED PDOC ---
Arrival/HPI - General Chief Complaint: Back Pain Time Seen by Provider: 11/14/18 14:36 Historian: Patient - History of Present Illness Narrative History of Present Illness (Text): 11/14/18 15:12 68 year old male, whose past medical history includes arthritis, Meniere's disease, HTN, HLD, chronic back pain, degenerative joint disease, gastritis presents to the emergency department complaining of buttocks pain. Patient describes the pain radiating down his legs. He feels like his buttocks is sore and "rubbery." Patient saw his primary care doctor, Dr. Ruiz who sent him into the emergency department for further evaluation. He notes he takes Tylenol and oxycodone for the pain with no improvement. Patient reports secondary hip pain. He denies fevers, chills, headache, dizziness, chest pain, shortness of breath, dyspnea on exertion, cough, abdominal pain, nausea, vomiting, diarrhea, neck pain, or any other complaint. PMD: Dr. Ruiz Symptom Onset: Gradual Symptom Course: Unchanged Activities at Onset: Light Context: Home Past Medical History - Provider Review Nursing Documentation Reviewed: Yes - Past History Past History: No Previous - Infectious Disease Hx of Infectious Diseases: None - Tetanus Immunization Tetanus Immunization: Unknown - Past Medical History Past Medical History: Non-Contributing - Cardiac Hx Cardiac Disorders: Yes Hx OK: Yes Hx Hypertension: Yes - Pulmonary Hx Respiratory Disorders: Yes Hx Pneumonia: Yes (11/10/14) - Neurological Hx Neurological Disorder: No - HEENT Hx HEENT Disorder: Yes (WEARS RX GLASSES) Hx Cataracts: Yes - Renal Hx Renal Disorder: Yes Other/Comment: hepatic cyst - Endocrine/Metabolic Hx Endocrine Disorders: No - Hematological/Oncological Hx Blood Disorders: No - Integumentary Hx Dermatological Disorder: No - Musculoskeletal/Rheumatological Hx Musculoskeletal Disorders: Yes Hx Arthritis: Yes Hx Back Pain: Yes Hx Degenerative Joint Disease: Yes Hx Falls: Yes Hx Rhabdomyolysis: Yes Hx Unsteady Gait: Yes (uses cane) Other/Comment: hiatal hernia, lumbar disc disease, lumbar radiculopathy - Gastrointestinal Hx Gastrointestinal Disorders: Yes Hx Diverticulitis: Yes Hx Gastritis: Yes Hx Hemorrhoids: Yes - Genitourinary/Gynecological Hx Genitourinary Disorders: No - Psychiatric Hx Psychophysiologic Disorder: Yes Hx Anxiety: Yes Hx Depression: Yes Hx Substance Use: No - Past Surgical History Past Surgical History: No Previous - Surgical History Hx Cardiac Catheterization: Yes (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%) Hx Open Heart Surgery: Yes - Anesthesia Hx Anesthesia: Yes Hx Anesthesia Reactions: No Hx Malignant Hyperthermia: No - Suicidal Assessment Feels Threatened In Home Enviroment: No Family/Social History - Physician Review Nursing Documentation Reviewed: Yes Family/Social History: No Known Family HX Smoking Status: Never Smoked Hx Alcohol Use: No Hx Substance Use: No Hx Substance Use Treatment: No Allergies/Home Meds Allergies/Adverse Reactions: Allergies Penicillins Adverse Reaction (Verified 09/24/18 15:42) ANAPHYLAXIS Home Medications: Home Meds Medication Instructions Recorded Confirmed Clonazepam [Klonopin] 0.5 mg PO BID PRN 04/16/14 05/21/18 Lyrica 75 mg PO BID 04/17/15 05/21/18 Amiodarone [Cordarone] 200 mg PO DAILY 08/01/15 05/21/18 Valsartan/Hydrochlorothiazide 1 tab PO DAILY 04/02/16 05/21/18 [Diovan Hct 320-25 mg Tablet] Atorvastatin [Lipitor] 1 tab PO HS 04/03/18 05/21/18 Ergocalciferol [Drisdol 50,000 1 cap PO Q7D 04/03/18 05/21/18 Intl Units Cap] Metoprolol Tartrate [Lopressor] 1 tab PO BID 04/03/18 05/21/18 Omeprazole 1 tab PO DAILY 04/03/18 05/21/18 Topiramate [Topamax] 1 tab PO BID 04/03/18 05/21/18 cloNIDine 0.3 mg/24 hr 1 patch TOP Q7D 04/03/18 05/21/18 [catapres-TTS3 0.3 mg/24 hr] Review of Systems - Physician Review All systems were reviewed & negative as marked: Yes - Review of Systems Constitutional: absent: Fevers Respiratory: absent: SOB, Cough Cardiovascular: absent: Chest Pain Gastrointestinal: absent: Abdominal Pain, Diarrhea, Nausea, Vomiting Genitourinary Male: absent: Dysuria Musculoskeletal: Other (buttocks pain, sciatica). absent: Neck Pain Neurological: absent: Headache, Dizziness Physical Exam Vital Signs Reviewed: Yes Vital Signs Temp Pulse Resp BP Pulse Ox 11/14/18 14:35 97.9 F 72 18 185/108 H 95 Temperature: Afebrile Blood Pressure: Hypertensive Pulse: Regular Respiratory Rate: Normal Appearance: Positive for: Well-Appearing, Non-Toxic, Comfortable Pain Distress: None Mental Status: Positive for: Alert and Oriented X 3 - Systems Exam Head: Present: Atraumatic, Normocephalic Pupils: Present: PERRL Extroacular Muscles: Present: EOMI Conjunctiva: Present: Normal Mouth: Present: Moist Mucous Membranes Neck: Present: Normal Range of Motion Respiratory/Chest: Present: Clear to Auscultation, Good Air Exchange. No: Respiratory Distress, Accessory Muscle Use Cardiovascular: Present: Regular Rate and Rhythm, Normal S1, S2. No: Murmurs Abdomen: No: Tenderness, Distention, Peritoneal Signs Rectal: Present: Normal Rectal Tone, Other (skin callous on left buttocks, no erythema, no warmth, no worms visualized, no pus visualized). No: Occult Blood (guaiac negative), Rectal Tenderness, Gross Blood, Hemorrhoids Back: Present: Normal Inspection Upper Extremity: Present: Normal Inspection, NORMAL PULSES. No: Cyanosis, Edema Lower Extremity: Present: NORMAL PULSES, Normal ROM (of hips and lower extremities), Other (lef sided sciatica ). No: Edema Neurological: Present: GCS=15, CN II-XII Intact, Speech Normal Skin: Present: Warm, Dry, Normal Color. No: Rashes Psychiatric: Present: Alert, Oriented x 3, Normal Insight, Normal Concentration Medical Decision Making ED Course and Treatment: 11/14/18 15:13 Impression: 68 year old male who presents to the emergency department complaining of buttocks pain. Differential Diagnosis included but are not limited to: sciatica stool complaints Plan: -- Labs -- Ultram -- OVA and Parasite -- Stool Culture -- Occult Blood -- Reassess and disposition Prior Visits: Notes and results from previous visits were reviewed. Progress Notes: 11/14/18 18:25 Stool samples were sent and PMD will f/u. Patients pain improved. He has neosporin and an antibiotic cream that he will use for the wound on his lower left sacral. He will make sure to follow up with his primary care doctor as an outpatient. - Lab Interpretations I have reviewed the lab results: Yes - Scribe Statement The provider has reviewed the documentation as recorded by the Scribe Tahira Zarcowy Provider Markosibe Attestation: All medical record entries made by the Thaddeus were at my direction and personally dictated by me. I have reviewed the chart and agree that the record accurately reflects my personal performance of the history, physical exam, medical decision making, and the department course for this patient. I have also personally directed, reviewed, and agree with the discharge instructions and disposition. Disposition/Present on Arrival - Present on Arrival Any Indicators Present on Arrival: No History of DVT/PE: No History of Uncontrolled Diabetes: No Urinary Catheter: No History of Decub. Ulcer: No History Surgical Site Infection Following: None - Disposition Have Diagnosis and Disposition been Completed?: Yes Diagnosis: Sciatica without back pain, Skin ulcer of sacral region, Change in stool Disposition: HOME/ ROUTINE Disposition Time: 17:15 Patient Plan: Discharge Condition: IMPROVED Discharge Instructions (ExitCare): Sciatica (DC) Additional Instructions: HUGO QUINTANILLA, thank you for letting us take care of you today. Your provider was Pio Aguilera DO and you were treated for Sciatica, Skin Ulcer or Irritation. The emergency medical care you received today was directed at your acute symptoms. If you were prescribed any medication, please fill it and take as directed. It may take several days for your symptoms to resolve. Return to the Emergency Department if your symptoms worsen, do not improve, or if you have any other problems. Please contact your doctor or call one of the physicians/clinics you have been referred to that are listed on the Patient Visit Information form that is included in your discharge packet. Bring any paperwork you were given at discharge with you along with any medications you are taking to your follow up visit. Our treatment cannot replace ongoing medical care by a primary care provider outside of the emergency department. Thank you for allowing the [facility] team to be part of your care today. If you had an X-Ray or CT scan: A Radiologist will review the ED reading if any change in treatment is needed we will contact you. If you had a blood, urine, or wound culture: It will take several days for the results, if any change in treatment is needed we will contact you. If you had an STI test: It will take 48 hours for the results. Please call after 1 week if you have not heard back. Referrals: Elan Nuñez MD [Primary Care Provider] - Follow up with primary Thom Ruiz DO [Staff Provider] - Follow up with primary Forms: [employer] (Honduran)
[2018-11-14 17:15] VITALS: BP 156/79; PULSE 78; O2SAT 98
== END 2018-11-14 17:40 | disposition home or self-care (01) ==
LOC: ED 14:31
DX: M54.30 Sciatica, unspecified side (principal); L98.429 Non-pressure chronic ulcer of back with unspecified severity; R19.5 Other fecal abnormalities; E78.5 Hyperlipidemia, unspecified; I10 Essential (primary) hypertension; H81.09 Meniere's disease, unspecified ear; M19.90 Unspecified osteoarthritis, unspecified site

== ENCOUNTER 2019-01-17 16:58 | Inpatient (IN) | payer MEDICARE ==
[2019-01-17 17:06] VITALS: BMI 31.3
[2019-01-17] MEDS ORDERED: Sodium Chloride 0.9% 1,000 ML IV STA (18:26)
--- NOTE | 2019-01-17 18:30 | ED PDOC ---
Arrival/HPI - General Chief Complaint: Back Pain Time Seen by Provider: 01/17/19 17:19 Historian: Patient - History of Present Illness Narrative History of Present Illness (Text): 01/17/19 22:36 68 y/o male with PMH of chronic back pain, CAD, Diverticulitis presents to the Emergency department c/o worsening rectal pain x 1 week. States that he feels a tingling sensation around the anus, with associated tenderness. Pt is consti pated at baseline, last BM yesterday. Associated lower back pain that he states is typical of his chronic pain, radiates down left leg. Took percocet this morning without relief. Denies fever, chills, SOB, chest pain, palpitations, abdominal pain, N/V, saddle anesthesia, bowel/bladder incontinence, urinary symptoms, or any other associated symptoms. Past Medical History - Provider Review Nursing Documentation Reviewed: Yes - Past History Past History: No Previous - Infectious Disease Hx of Infectious Diseases: None - Tetanus Immunization Tetanus Immunization: Unknown - Past Medical History Past Medical History: Non-Contributing - Cardiac Hx Cardiac Disorders: Yes Hx AK: Yes Hx Hypertension: Yes - Pulmonary Hx Respiratory Disorders: Yes Hx Pneumonia: Yes (11/10/14) - Neurological Hx Neurological Disorder: No - HEENT Hx HEENT Disorder: Yes (WEARS RX GLASSES) Hx Cataracts: Yes - Renal Hx Renal Disorder: Yes Other/Comment: hepatic cyst - Endocrine/Metabolic Hx Endocrine Disorders: No - Hematological/Oncological Hx Blood Disorders: No - Integumentary Hx Dermatological Disorder: No - Musculoskeletal/Rheumatological Hx Musculoskeletal Disorders: Yes Hx Arthritis: Yes Hx Back Pain: Yes Hx Degenerative Joint Disease: Yes Hx Falls: Yes Hx Rhabdomyolysis: Yes Hx Unsteady Gait: Yes (uses cane) Other/Comment: hiatal hernia, lumbar disc disease, lumbar radiculopathy - Gastrointestinal Hx Gastrointestinal Disorders: Yes Hx Diverticulitis: Yes Hx Gastritis: Yes Hx Hemorrhoids: Yes - Genitourinary/Gynecological Hx Genitourinary Disorders: No - Psychiatric Hx Psychophysiologic Disorder: Yes Hx Anxiety: Yes Hx Depression: Yes Hx Substance Use: No - Past Surgical History Past Surgical History: No Previous - Surgical History Hx Cardiac Catheterization: Yes (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%) Hx Open Heart Surgery: Yes - Anesthesia Hx Anesthesia: Yes Hx Anesthesia Reactions: No Hx Malignant Hyperthermia: No - Suicidal Assessment Feels Threatened In Home Enviroment: No Family/Social History - Physician Review Nursing Documentation Reviewed: Yes Family/Social History: No Known Family HX Smoking Status: Never Smoked Hx Alcohol Use: No Hx Substance Use: No Hx Substance Use Treatment: No Allergies/Home Meds Allergies/Adverse Reactions: Allergies Penicillins Adverse Reaction (Verified 01/17/19 17:06) ANAPHYLAXIS Home Medications: Home Meds Medication Instructions Recorded Confirmed Clonazepam [Klonopin] 0.5 mg PO BID PRN 04/16/14 01/18/19 Lyrica 75 mg PO BID 04/17/15 01/21/19 Amiodarone [Cordarone] 200 mg PO DAILY 08/01/15 01/18/19 Valsartan/Hydrochlorothiazide 1 tab PO DAILY 04/02/16 01/18/19 [Diovan Hct 320-25 mg Tablet] Atorvastatin [Lipitor] 1 tab PO HS 04/03/18 01/18/19 Ergocalciferol [Drisdol 50,000 1 cap PO Q7D 04/03/18 01/18/19 Intl Units Cap] Metoprolol Tartrate [Lopressor] 1 tab PO BID 04/03/18 01/21/19 Omeprazole 1 tab PO DAILY 04/03/18 01/18/19 Topiramate [Topamax] 1 tab PO BID 04/03/18 01/18/19 cloNIDine 0.3 mg/24 hr 1 patch TOP Q7D 04/03/18 01/18/19 [catapres-TTS3 0.3 mg/24 hr] Review of Systems - Review of Systems Constitutional: Normal. absent: Fatigue, Fevers Eyes: Normal. absent: Vision Changes, Photophobia ENT: Normal. absent: Sore Throat, Sinus Congestion Respiratory: Normal. absent: SOB, Cough Cardiovascular: Normal. absent: Chest Pain, Palpitations, Syncope Gastrointestinal: Constipation, Other (rectal pain). absent: Abdominal Pain, Stool Changes, Nausea, Vomiting, Appetite Changes Genitourinary Male: Normal Musculoskeletal: Back Pain Skin: Normal. absent: Rash Neurological: Normal. absent: Headache, Dizziness Endocrine: Normal Hemo/Lymphatic: Normal Psychiatric: Normal Physical Exam Vital Signs Reviewed: Yes Vital Signs Temp Pulse Resp BP Pulse Ox 01/17/19 18:12 98.8 F 01/17/19 18:00 99.5 F 112 H 18 157/86 H 95 Temperature: Afebrile Blood Pressure: Hypertensive Pulse: Tachycardic Respiratory Rate: Normal Appearance: Positive for: Non-Toxic, Unkept Pain Distress: None Mental Status: Positive for: Alert and Oriented X 3 - Systems Exam Head: Present: Atraumatic, Normocephalic Pupils: Present: PERRL Extroacular Muscles: Present: EOMI Conjunctiva: Present: Normal Mouth: Present: Moist Mucous Membranes Neck: Present: Normal Range of Motion. No: Meningeal Signs, Paraspinal Tenderness Respiratory/Chest: Present: Clear to Auscultation, Good Air Exchange. No: Respiratory Distress, Accessory Muscle Use Cardiovascular: Present: Normal S1, S2, Peripheal Pulses Present, Tachycardic Abdomen: Present: Normal Bowel Sounds. No: Tenderness, Distention, Peritoneal Signs, Rebound, Guarding Rectal: Present: Rectal Tenderness, Normal Rectal Tone, Fissures (small anal fissure at 12 o'clock). No: Occult Blood, Gross Blood, Melena, Hemorrhoids, Nodule/Mass/Lesions Back: Present: Normal Inspection, Paraspinal Tenderness (left lumbar), Pain with Leg Raise (left side). No: CVA Tenderness Upper Extremity: Present: Normal Inspection, Normal ROM, NORMAL PULSES, Neurovascularly Intact, Capillary Refill < 2s. No: Cyanosis, Edema, Temperature Abnormalties Lower Extremity: Present: Normal Inspection, NORMAL PULSES, Normal ROM, Neurovascularly Intact, Capillary Refill < 2 s. No: Edema Neurological: Present: GCS=15, CN II-XII Intact, Speech Normal, Motor Func Grossly Intact, Normal Sensory Function, Gait Normal Skin: Present: Warm, Dry, Normal Color. No: Rashes Psychiatric: Present: Alert, Oriented x 3, Normal Insight, Normal Concentration Medical Decision Making ED Course and Treatment: Initial Plan: * CBC, CMP * Lipase * Coags * Troponin * EKG * CT Lumbar Spine * CT Abd/Pelvis with IV contrast * Left leg venous duplex Case discussed with Dr. Ruiz, who asks for CT lumbar spine. [address] Lowe, who recommends workup with labs and fluids. EKG shows sinus tachycardia at 109; Normal intervals; No STEMI, nonspecific ST/T wave changes 2209 CT significant for proctitis and mesenteric mass. CT result discussed with Dr. Ruiz. Asks for stat surgical consult. Heart rate has improved significantly from triage with fluids. Troponin will be repeated prior to discharge to ensure no elevation. 2245 regional vice president surgical sales evaluated patient at bedside for Dr. France. States no emergent surgical intervention is indicated at this time. [address] Ruiz who accepted patient for inpatient admission with diagnosis of mesenteric mass and proctitis to med/surg floor. Will not start cipro at this time, secondary to risks of QT prolongation with amiodarone. Flagyl given. Cultures drawn. 0230 Increase in troponin noted from 0.03 to 0.06, resulted at 0017 after admission, still within normal limits. No critical value. Pt had no complaints of SOB, palpitations, or chest pain/pressure/discomfort[facility] Will call to upgrade admission. Updated Dr. Ruiz on increase in troponin, asks for remote telemetry floor with consult to Dr. Higginbotham and cardiac enzymes q8h x 3. Nurse Priyanka spoke with Nursing art objects supervisor and med/surg floor. Pt will be transferred to . - Lab Interpretations Lab Results: 01/17/19 19:15 01/17/19 19:15 Lab Results 01/17/19 23:40: Troponin I 0.06 D 01/17/19 20:48: Alcohol, Quantitative < 10 01/17/19 19:15: Sodium 141, Potassium 4.0, Chloride 103, Carbon Dioxide 28, Anion Gap 14, BUN 22 H, Creatinine 1.4, Est GFR ( Amer) > 60, Est GFR (Non-Af Amer) 50, Random Glucose 111 H, Calcium 8.9, Phosphorus 2.9, Magnesium 2.5 H, Total Bilirubin 0.3, AST 36, ALT 27, Alkaline Phosphatase 73, Troponin I 0.03 D, Total Protein 7.6, Albumin 3.8, Globulin 3.8, Albumin/Globulin Ratio 1.0 L 01/17/19 19:15: PT 11.7, INR 1.05, APTT 30.9 01/17/19 19:15: WBC 10.0, RBC 4.79, Hgb 14.1, Hct 42.4, MCV 88.5 D, MCH 29.4, MCHC 33.3, RDW 13.9, Plt Count 318, MPV 10.5, Neut % (Auto) 72.1 H, Lymph % (Auto) 19.2 L, [place] % (Auto) 8.2 H, Eos % (Auto) 0.3 L, Baso % (Auto) 0.2, Lymph # (Auto) 1.9, [place] # (Auto) 0.8 H, Eos # (Auto) 0.0, Baso # (Auto) 0.02, Absolute Neuts (auto) 7.20 H 01/17/19 18:30: Urine Color Light yellow, Urine Appearance Clear, Urine pH 6.5, Ur Specific [place] 1.010, Urine Protein Negative, Urine Glucose (UA) Negative, Urine Ketones Negative, Urine Blood Negative, Urine Nitrate Negative, Urine Bilirubin Negative, Urine Urobilinogen 0.2, Ur Leukocyte Esterase Negative I have reviewed the lab results: Yes - RAD Interpretation Narrative RAD Interpretations (Text): CT Abdomen and Pelvis: LUNG BASES: The lung bases appear clear. No pleural effusions are seen. LIVER: Unremarkable. GALLBLADDER AND BILE DUCTS: The gallbladder appears within normal limits. No radioopaque gallstones are seen. No biliary ductal dilatation is evident. PANCREAS: Unremarkable. SPLEEN: Unremarkable. ADRENAL GLANDS: Unremarkable. KIDNEYS, URETERS, AND BLADDER: The kidneys appear within normal limits. There is no hydronephrosis or hy droureter. No urinary calculi are seen. The urinary bladder appeared normal in size and configuration. STOMACH AND BOWEL: Unremarkable appearance of the stomach and bowel. No evidence of bowel obstr uction. No evidence suggesting enteritis or colitis. There is circumferential mucosal wall thickening of the rectum noted which could be compatible with proctitis. No perirectal abscess or fistula formation is seen. APPENDIX: No evidence of acute appendicitis on CT examination. PERITONEUM: No free fluid. No free air. A 2.2 x 1.7 x 1.7 cm solid mass is now seen in the central root of the mesentery in the mesenteric fat. there is stranding about its borders noted. Findings thought possible include lymphadenitis, carcinoid, malignancy or GIST. There is surrounding mesenteric haziness present compatible with mesenteritis. LYMPH NODES: No lymphadenopathy is evident. REPRODUCTIVE: Unremarkable as visualized. VASCULATURE: No evidence of abdominal aortic aneurysm. Extensive atherosclerotic vascular plaquing is present. BONES: No aggressive appearing osseous lesion. No acute osseous pathology evident. There is evidence of degenerative disc disease at L5-S1. IMPRESSION: 1. There has been interval formation of a 2.2 x 1.7 cm solid mass in the central root of the mesentery. Considerations thought possible include lymphadenitis, carcinoid, GIST, or malignancy. 2. Mesenteric haziness in the central root of the mesentery compatible with mesenteritis. 3. Evidence of proctitis. 4. Evidence of degenerative disc disease at L5-S1. Electronically signed on Jan 17, 2019 10:10:01 PM EDT by: Yon Qiu M.D., MBA Certified By ABR & CBCCT Fellowship Trained MRI and CT Specialist CT Lumbar Spine: ALIGNMENT: Bony alignment is anatomic. DISCS/DEGENERATIVE CHANGES: T12/L1: No significant central canal or neural foraminal stenosis. L1/L2: No significant central canal or neural foraminal stenosis. L2/L3: No significant central canal or neural foraminal stenosis. L3/4: No significant central canal or neural foraminal stenosis. L4/5: No significant central canal stenosis. There is diffuse central bulging of the annulus fibrosus noted. There is associated mild central spinal canal stenosis. There does appear to be bilateral exit foramen stenosis. L5/S1: No significant central canal or neural foraminal stenosis. Disc interspace narrowing and vacuum disc phenomenon noted compatible with moderate degenerative disc disease. BONES: No acute fracture or aggressive appearing osseous lesion. SOFT TISSUES: The soft tissues are unremarkable. Extensive atherosclerotic vascular plaquing identified. MISCELLANEOUS: Circumferential mucosal wall thickening of the rectum noted compatible with proctitis. IMPRESSION: 1. No acute lumbar spine abnormality. 2. Diffuse central bulging of the annulus fibrosus at L4-5. This creates bilateral exit foramen stenosis and mild central spinal canal stenosis. 3. Evidence of moderate degenerative disc disease at L5-S1. 4. Evidence of proctitis. Electronically signed on Jan 17, 2019 10:10:11 PM EDT by: Yon Qiu M.D., NATTY Certified By ABR & CBCCT Fellowship Trained MRI and CT Specialist Radiology Orders: 01/17/19 17:53 HIP WITHOUT CONTRAST LEFT [CT] Stat LUMBAR SPINE W/O CONTRAST [CT] Stat DUPLEX LOWER EXTRM VEIN LEFT [US] Stat Personnel Associate: Radiologist - EKG Interpretation EKG Interpretation (Text): 01/18/19 03:14 Rate 109; NSR; Normal intervals; No STEMI, nonspecific ST/T wave changes Interpreted by ED Physician: Yes Type: 12 lead EKG Comparison: Com.w/previous EKG (08/01/19) Disposition/Present on Arrival - Present on Arrival Any Indicators Present on Arrival: No History of DVT/PE: No History of Uncontrolled Diabetes: No Urinary Catheter: No History of Decub. Ulcer: No History Surgical Site Infection Following: None - Disposition Have Diagnosis and Disposition been Completed?: Yes Diagnosis: Proctitis, Mesenteric mass, Chronic back pain Disposition: HOSPITALIZED Disposition Time: 00:01 Patient Plan: Admission Condition: STABLE
[2019-01-17 18:51] LABS: PH,URINE 6.5 (4.7-8.0); URINE BILIRUBIN NEGATIVE (NEGATIVE); URINE BLOOD NEGATIVE (NEGATIVE); URINE GLUCOSE (UA) NEGATIVE (NEGATIVE); URINE LEUKOCYTE ESTERASE NEGATIVE Leu/uL (NEGATIVE); URINE PROTEIN NEGATIVE mg/dL (<30 mg/dL); URINE UROBILINOGEN 0.2 E.U./dL (<1 E.U./dL)
[2019-01-17 18:52] LABS: URINE APPEARANCE CLEAR (CLEAR); URINE COLOR LIGHT YELLOW (YELLOW)
[2019-01-17 19:30] LABS: BASO # 0.02 K/mm3 (0.0-2.0); BASO % 0.2 % (0.0-3.0); EOS % 0.3 % (1.5-5.0); HEMOGLOBIN 14.1 g/dL (14.0-18.0); LYMPH # 1.9 (1.2-3.4); LYMPH % 19.2 % (22.0-35.0); MEAN CELL VOLUME 88.5 fl (80.0-105.0); MEAN CORPUSCULAR HEMOGLOBIN 29.4 pg (25.0-35.0); MEAN CORPUSCULAR HGB CONC 33.3 g/dl (31.0-37.0); MEAN PLATELET VOLUME 10.5 fl (7.0-11.0); MONO # 0.8 (0.1-0.6); MONO % 8.2 % (1.0-6.0); RBC 4.79 10^6/uL (3.5-6.1); RED CELL DISTRIBUTION WIDTH 13.9 % (11.5-14.5)
[2019-01-17 19:40] LABS: ALBUMIN 3.8 g/dL (3.0-4.8); ALT/SGPT 27 U/L (7-56); AST/SGOT 36 U/L (17-59); BLOOD UREA NITROGEN 22 mg/dL (7-21); CALCIUM 8.9 mg/dL (8.4-10.5); GFR NON-AFRICAN AMERICAN 50
[2019-01-17 19:41] LABS: INR 1.05; PARTIAL THROMBOPLASTIN TIME 30.9 Seconds (26.9-38.3); PROTHROMBIN TIME 11.7 SECONDS (9.4-12.5)
[2019-01-17 19:50] LABS: TROPONIN I 0.03 ng/mL
[2019-01-17] MEDS ORDERED: Iohexol 350 MG/100 ML VIAL ONE (19:58)
--- NOTE | 2019-01-17 20:33 | US ---
PROCEDURE: Left lower extremity venous US HISTORY: Leg pain and swelling. Evaluate for DVT. PHYSICIAN(S): Sherman Sandoval MD. TECHNIQUE: Duplex sonography and color-flow Doppler with graded compression were used to evaluate the deep venous system of the left lower extremity. FINDINGS: The visualized deep venous system of the left lower extremity is sonographically normal and compressible. Normal wave forms and augmentation are seen. There is no sonographic evidence for deep venous thrombosis in the visualized segments of the left lower extremity. IMPRESSION: 1. No sonographic evidence for deep venous thrombosis in the visualized segments of the left lower extremity.
[2019-01-18] MEDS ORDERED: metroNIDAZOLE IV 500 mg/100 ml 500 MG/100 ML BAG IVPB STA (00:06)
[2019-01-18] MEDS ORDERED: Sodium Chloride 0.9% 1,000 ML IV SCH (00:15)
[2019-01-18 02:10] LABS: OPIATES, UR NEGATIVE (NEGATIVE)
[2019-01-18] MEDS ORDERED: Influenza Vaccine 60 mcg/0.5 mL SYR (4YR UP) IM ONE (02:24)
[2019-01-18] MEDS ORDERED: Pneumococcal 23-Valent Vaccine IM ONE (02:24)
[2019-01-18 02:40] LABS: BARBITURATES, UR NEGATIVE (NEGATIVE); BENZODIAZEPINES, UR NEGATIVE (NEGATIVE); PHENCYCLIDINE, UR NEGATIVE (NEGATIVE)
--- NOTE | 2019-01-18 05:22 | CP.PCM.PN ---
Subjective - Date & Time of Evaluation Date of Evaluation: 01/18/19 Time of Evaluation: 05:21 - Subjective Subjective: Patient was seen at bedside after regular diet, Pregablin and klonopin was ordered by resident physician. States that he is not able to sleep and needed his klonopin and lyrica. Has no other complaints. Medical record was reviewed. This 68 year old white male was admitted with worsening rectal pain of one week duration. Has PMH of CAD Diverticulitis Chronic back pain MD HTN Cataract Hepatic cyst Rx, pt seen regular diet Pregabalin Klonopin Objective - Vital Signs/Intake and Output Vital Signs (last 24 hours): Temp Pulse Resp BP Pulse Ox 98.8 F 73 20 147/84 99 01/18/19 04:52 01/18/19 04:52 01/18/19 04:52 01/18/19 04:52 01/18/19 04:52 - Medications Medications: Current Medications Sodium Chloride (Sodium Chloride 0.9%) 1,000 mls @ 100 mls/hr IV .Q10H SYED Last Admin: 01/18/19 00:29 Dose: 100 mls/hr - Labs Labs: 01/17/19 19:15 01/17/19 19:15 PT 11.7 SECONDS (9.4-12.5) 01/17/19 19:15 INR 1.05 01/17/19 19:15 APTT 30.9 Seconds (26.9-38.3) 01/17/19 19:15 Assessment and Plan - Assessment and Plan (Free Text) Assessment: Insomnia. CAD Diverticulitis Chronic back pain MD HTN Cataract Hepatic cyst Plan: Regular diet. Pregabalin as ordered. Klonopin as ordered.
--- NOTE | 2019-01-18 06:02 | CP.PCM.CON ---
History of Present Illness - History of Present Illness History of Present Illness: General Surgery: Dr France Re: Proctitis, Mesenteric Mass Pt is 68M with PMH of chronic back pain, CAD, Diverticulitis presents to the Emergency department c/o worsening rectal pain x 1 week. He is well known to surgical and medical team given his frequent ED appearances. He currently states that he feels a tingling sensation around the anus, with associated tenderness. He says this is the usual pain that he has. Pt is constipated at baseline, last BM yesterday. Associated lower back pain that he states is typical of his chronic pain, radiates down left leg. Takes percocet at home. He denies any N/V or obstructive symptoms. he denies any abdominal pain, only pain in the rectum. He also denies fever, chills, SOB, chest pain, palpitations, abdominal pain, bowel/bladder incontinence, urinary symptoms, or any other ass ociated symptoms. Pt reports he is unclear about his surgical history, though he is very adamant that should he need surgery he does not want it. Review of Systems - Review of Systems All systems: reviewed and no additional remarkable complaints except (as per hpi) Past Patient History - Infectious Disease Hx of Infectious Diseases: None - Tetanus Immunizations Tetanus Immunization: Unknown - Past Social History Smoking Status: Never Smoked - CARDIAC Hx Cardiac Disorders: Yes Hx Heart Attack: Yes Hx Hypertension: Yes - PULMONARY Hx Respiratory Disorders: Yes Hx Pneumonia: Yes (11/10/14) - NEUROLOGICAL Hx Neurological Disorder: No - HEENT Hx HEENT Problems: Yes (WEARS RX GLASSES) Hx Cataracts: Yes - RENAL Hx Chronic Kidney Disease: Yes Other/Comment: hepatic cyst - ENDOCRINE/METABOLIC Hx Endocrine Disorders: No - HEMATOLOGICAL/ONCOLOGICAL Hx Blood Disorders: No - INTEGUMENTARY Hx Dermatological Problems: No - MUSCULOSKELETAL/RHEUMATOLOGICAL Hx Musculoskeletal Disorders: Yes Hx Arthritis: Yes Hx Back Pain: Yes Hx Degenerative Joint Disease: Yes Hx Falls: Yes Hx Rhabdomyolysis: Yes Hx Unsteady Gait: Yes (uses cane) Other/Comment: hiatal hernia, lumbar disc disease, lumbar radiculopathy - GASTROINTESTINAL Hx Gastrointestinal Disorders: Yes Hx Diverticulitis: Yes Hx Gastritis: Yes Hx Hemorrhoids: Yes - GENITOURINARY/GYNECOLOGICAL Hx Genitourinary Disorders: No - PSYCHIATRIC Hx Psychophysiologic Disorder: Yes Hx Anxiety: Yes Hx Depression: Yes Hx Substance Use: No - SURGICAL HISTORY Hx Cardiac Catheterization: Yes (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%) Hx Open Heart Surgery: Yes - ANESTHESIA Hx Anesthesia: Yes Hx Anesthesia Reactions: No Hx Malignant Hyperthermia: No Meds Allergies/Adverse Reactions: Allergies Allergy/AdvReac Type Severity Reaction Status Date / Time Penicillins AdvReac ANAPHYLAXIS Verified 01/17/19 17:06 - Medications Medications: Current Medications Sodium Chloride (Sodium Chloride 0.9%) 1,000 mls @ 100 mls/hr IV .Q10H SYED Last Admin: 01/18/19 00:29 Dose: 100 mls/hr Physical Exam - Constitutional Appears: No Acute Distress - Respiratory Exam Respiratory Exam: absent: Respiratory Distress - Cardiovascular Exam Cardiovascular Exam: REGULAR RHYTHM. absent: Tachycardia - GI/Abdominal Exam GI & Abdominal Exam: Soft. absent: Diminished Bowel Sounds, Distended, Firm, Guarding, Rigid, Tenderness - Rectal Exam Rectal Exam: absent: Bloody Stool, Hemorrhoids, Fecal Impaction Additional comments: extreme tender to palpation, no abscess or fluctuance noted, no palpable mass, inc rectal tone - Neurological Exam Neurological exam: Alert - Psychiatric Exam Psychiatric exam: Anxious - Skin Skin Exam: Normal Color Results - Vital Signs Recent Vital Signs: Last Vital Signs Temp 98.8 F 01/18/19 04:52 Pulse 75 01/18/19 05:46 Resp 20 01/18/19 04:52 BP 147/84 01/18/19 04:52 Pulse Ox 99 01/18/19 04:52 - Labs Result Diagrams: 01/17/19 19:15 01/17/19 19:15 Labs: Laboratory Results - last 24 hr 01/17/19 01/17/19 01/17/19 18:30 19:15 19:15 WBC 10.0 RBC 4.79 Hgb 14.1 Hct 42.4 MCV 88.5 D MCH 29.4 MCHC 33.3 RDW 13.9 Plt Count 318 MPV 10.5 Neut % (Auto) 72.1 H Lymph % (Auto) 19.2 L [place] % (Auto) 8.2 H Eos % (Auto) 0.3 L Baso % (Auto) 0.2 Lymph # (Auto) 1.9 [place] # (Auto) 0.8 H Eos # (Auto) 0.0 Baso # (Auto) 0.02 Absolute Neuts (auto) 7.20 H PT 11.7 INR 1.05 APTT 30.9 Sodium Potassium Chloride Carbon Dioxide Anion Gap BUN Creatinine Est GFR ( Amer) Est GFR (Non-Af Amer) Random Glucose Calcium Phosphorus Magnesium Total Bilirubin AST ALT Alkaline Phosphatase Troponin I Total Protein Albumin Globulin Albumin/Globulin Ratio Urine Color Light yellow Urine Appearance Clear Urine pH 6.5 Ur Specific [place] 1.010 Urine Protein Negative Urine Glucose (UA) Negative Urine Ketones Negative Urine Blood Negative Urine Nitrate Negative Urine Bilirubin Negative Urine Urobilinogen 0.2 Ur Leukocyte Esterase Negative Urine Opiates Screen Urine Methadone Screen Ur Barbiturates Screen Ur Phencyclidine Scrn Ur Amphetamines Screen U Benzodiazepines Scrn U Oth Cocaine Metabols U Cannabinoids Screen Alcohol, Quantitative 01/17/19 01/17/19 01/17/19 19:15 20:48 23:40 WBC RBC Hgb Hct MCV MCH MCHC RDW Plt Count MPV Neut % (Auto) Lymph % (Auto) [place] % (Auto) Eos % (Auto) Baso % (Auto) Lymph # (Auto) [place] # (Auto) Eos # (Auto) Baso # (Auto) Absolute Neuts (auto) PT INR APTT Sodium 141 Potassium 4.0 Chloride 103 Carbon Dioxide 28 Anion Gap 14 BUN 22 H Creatinine 1.4 Est GFR ( Amer) > 60 Est GFR (Non-Af Amer) 50 Random Glucose 111 H Calcium 8.9 Phosphorus 2.9 Magnesium 2.5 H Total Bilirubin 0.3 AST 36 ALT 27 Alkaline Phosphatase 73 Troponin I 0.03 D 0.06 D Total Protein 7.6 Albumin 3.8 Globulin 3.8 Albumin/Globulin Ratio 1.0 L Urine Color Urine Appearance Urine pH Ur Specific [place] Urine Protein Urine Glucose (UA) Urine Ketones Urine Blood Urine Nitrate Urine Bilirubin Urine Urobilinogen Ur Leukocyte Esterase Urine Opiates Screen Urine Methadone Screen Ur Barbiturates Screen Ur Phencyclidine Scrn Ur Amphetamines Screen U Benzodiazepines Scrn U Oth Cocaine Metabols U Cannabinoids Screen Alcohol, Quantitative < 10 01/18/19 01:35 WBC RBC Hgb Hct MCV MCH MCHC RDW Plt Count MPV Neut % (Auto) Lymph % (Auto) [place] % (Auto) Eos % (Auto) Baso % (Auto) Lymph # (Auto) [place] # (Auto) Eos # (Auto) Baso # (Auto) Absolute Neuts (auto) PT INR APTT Sodium Potassium Chloride Carbon Dioxide Anion Gap BUN Creatinine Est GFR ( Amer) Est GFR (Non-Af Amer) Random Glucose Calcium Phosphorus Magnesium Total Bilirubin AST ALT Alkaline Phosphatase Troponin I Total Protein Albumin Globulin Albumin/Globulin Ratio Urine Color Urine Appearance Urine pH Ur Specific [place]z Urine Protein Urine Glucose (UA) Urine Ketones Urine Blood Urine Nitrate Urine Bilirubin Urine Urobilinogen Ur Leukocyte Esterase Urine Opiates Screen Negative Urine Methadone Screen Negative Ur Barbiturates Screen Negative Ur Phencyclidine Scrn Negative Ur Amphetamines Screen Negative U Benzodiazepines Scrn Negative U Oth Cocaine Metabols Negative U Cannabinoids Screen Negative Alcohol, Quantitative Assessment & Plan - Assessment and Plan (Free Text) Assessment: 68M with proctitis and 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 not seen on prior CT Plan: Currently pt needs treatment/pain control for his proctitis He has no abdominal pain, and no abdominal symptoms thus mesenteric lesion is likely not cause of his discomfort at this time Typically, asymptomatic mesenteric cysts do not require surgery, and can be follow up at 1 and 3 months to ensure it is not enlarging or causing symptoms If pt develops symptoms, would potentially require resection, but standard treatment remains conservative for pts not suffering from obstruction or peritonitis From a surgical standpoint, this pt would be clear for discharge at this time d/w Dr Román Clark, PGY4
[2019-01-18 09:40] LABS: TROPONIN I 0.09 ng/mL
[2019-01-18] MEDS ORDERED: metroNIDAZOLE IV 500 mg/100 ml 500 MG/100 ML BAG IVPB SCH (09:45)
[2019-01-18 10:05] LABS: CK-MB 2.1 ng/mL (0.0-3.6)
[2019-01-18] MEDS: Sodium Chloride 0.45% 1,000 ML IV SCH ×2 (10:39→23:15)
--- NOTE | 2019-01-18 12:05 | CP.PCM.CON ---
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 He states that he has intermittent buttock pain since he purchases a particular chair back in May after a recent hospital stay. He also reports that his buttock themselves feel "soft." He goes on to elaborate how he needs to go to the gym more and how he use to be "stronger and more firm." Regarding bowel movements, he states that he often has some difficulty moving his bowels, reporting pass "stones" in his BMs at times. However, he stated when he does move bowels he feels completely voided without any signs of bleeding. He denied any F/C, abd pain, N/V, weight loss, dysphagia. No prior CSPY, EGD as detailed below. 12 point ROS negative other than stated above EGD 2012: Gastritis, duodenitis (Bx neg), Esophageal bx with IM but no dysplasia. MHx: See above SurgHx: CABG Meds: Reviewed in chart FamHx: Uncle with Panc CA SocHx: Denied All: PCN-Anaphylaxis Past Patient History - Infectious Disease Hx of Infectious Diseases: None - Tetanus Immunizations Tetanus Immunization: Unknown - Past Social History Smoking Status: Never Smoked - CARDIAC Hx Cardiac Disorders: Yes Hx Heart Attack: Yes Hx Hypertension: Yes - PULMONARY Hx Respiratory Disorders: Yes Hx Pneumonia: Yes (11/10/14) - NEUROLOGICAL Hx Neurological Disorder: No - HEENT Hx HEENT Problems: Yes (WEARS RX GLASSES) Hx Cataracts: Yes - RENAL Hx Chronic Kidney Disease: Yes Other/Comment: hepatic cyst - ENDOCRINE/METABOLIC Hx Endocrine Disorders: No - HEMATOLOGICAL/ONCOLOGICAL Hx Blood Disorders: No - INTEGUMENTARY Hx Dermatological Problems: No - MUSCULOSKELETAL/RHEUMATOLOGICAL Hx Musculoskeletal Disorders: Yes Hx Arthritis: Yes Hx Back Pain: Yes Hx Degenerative Joint Disease: Yes Hx Falls: Yes Hx Rhabdomyolysis: Yes Hx Unsteady Gait: Yes (uses cane) Other/Comment: hiatal hernia, lumbar disc disease, lumbar radiculopathy - GASTROINTESTINAL Hx Gastrointestinal Disorders: Yes Hx Diverticulitis: Yes Hx Gastritis: Yes Hx Hemorrhoids: Yes - GENITOURINARY/GYNECOLOGICAL Hx Genitourinary Disorders: No - PSYCHIATRIC Hx Psychophysiologic Disorder: Yes Hx Anxiety: Yes Hx Depression: Yes Hx Substance Use: No - SURGICAL HISTORY Hx Cardiac Catheterization: Yes (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%) Hx Open Heart Surgery: Yes - ANESTHESIA Hx Anesthesia: Yes Hx Anesthesia Reactions: No Hx Malignant Hyperthermia: No Meds Allergies/Adverse Reactions: Allergies Allergy/AdvReac Type Severity Reaction Status Date / Time Penicillins AdvReac ANAPHYLAXIS Verified 01/17/19 17:06 - Medications Medications: Current Medications Aspirin (Aspirin Chewable) 81 mg PO DAILY [facility] Last Admin: 01/18/19 10:00 Dose: 81 mg Clopidogrel Bisulfate (Plavix) 75 mg PO DAILY SYED Doxycycline Hyclate (Doryx) 100 mg PO Q12 SYED; Protocol Last Admin: 01/18/19 11:18 Dose: 100 mg Metronidazole (Flagyl) 500 mg in 100 mls @ 100 mls/hr IVPB Q8 SYED; Protocol Last Admin: 01/18/19 09:59 Dose: 100 mls/hr Sodium Chloride (Sodium Chloride 0.45%) 1,000 mls @ 80 mls/hr IV .[id number] SYED Last Admin: 01/18/19 10:39 Dose: 80 mls/hr Physical Exam - Constitutional Appears: No Acute Distress, Chronically Ill - Head Exam Head Exam: ATRAUMATIC, NORMAL INSPECTION - Eye Exam Eye Exam: EOMI. absent: Scleral icterus - ENT Exam ENT Exam: Mucous Membranes Moist. absent: Mucous Membranes Dry - Respiratory Exam Respiratory Exam: Clear to Auscultation Bilateral, NORMAL BREATHING PATTERN. absent: Accessory Muscle Use, Respiratory Distress - Cardiovascular Exam Cardiovascular Exam: REGULAR RHYTHM, RRR - GI/Abdominal Exam GI & Abdominal Exam: Normal Bowel Sounds, Soft. absent: Bruit, Diminished Bowel Sounds, Distended, Firm, Guarding, Hernia, Organomegaly, Pulsatile Mass, Rebo und, Rigid, Tenderness Additional comments: obesity limiting exam - Rectal Exam Additional comments: no REMY performed but with stage 1 decubitus sherry-rectal, no obvious masses nor fluctuance per-anal - Extremities Exam Extremities exam: Positive for: pedal edema (trace bilateral). Negative for: tenderness - Neurological Exam Neurological exam: Alert, CN II-XII Intact - Psychiatric Exam Psychiatric exam: Normal Affect, Normal Mood - Skin Skin Exam: Normal Color, Warm Additional comments: midline sternal scar Results - Vital Signs Recent Vital Signs: Last Vital Signs Temp 98.4 F 01/18/19 06:00 Pulse 81 01/18/19 10:00 Resp 18 01/18/19 06:00 BP 114/79 01/18/19 06:00 Pulse Ox 94 L 01/18/19 06:00 - Labs Result Diagrams: 01/17/19 19:15 01/17/19 19:15 Labs: Laboratory Results - last 24 hr 01/17/19 01/17/19 01/17/19 18:30 19:15 19:15 WBC 10.0 RBC 4.79 Hgb 14.1 Hct 42.4 MCV 88.5 D MCH 29.4 MCHC 33.3 RDW 13.9 Plt Count 318 MPV 10.5 Neut % (Auto) 72.1 H Lymph % (Auto) 19.2 L [place] % (Auto) 8.2 H Eos % (Auto) 0.3 L Baso % (Auto) 0.2 Lymph # (Auto) 1.9 [place] # (Auto) 0.8 H Eos # (Auto) 0.0 Baso # (Auto) 0.02 Absolute Neuts (auto) 7.20 H PT 11.7 INR 1.05 APTT 30.9 Sodium Potassium Chloride Carbon Dioxide Anion Gap BUN Creatinine Est GFR ( Amer) Est GFR (Non-Af Amer) Random Glucose Calcium Phosphorus Magnesium Total Bilirubin AST ALT Alkaline Phosphatase Lactate Dehydrogenase Total Creatine Kinase CK-MB (CK-2) CK-MB (CK-2) % Troponin I Total Protein Albumin Globulin Albumin/Globulin Ratio Urine Color Light yellow Urine Appearance Clear Urine pH 6.5 Ur Specific [place] 1.010 Urine Protein Negative Urine Glucose (UA) Negative Urine Ketones Negative Urine Blood Negative Urine Nitrate Negative Urine Bilirubin Negative Urine Urobilinogen 0.2 Ur Leukocyte Esterase Negative Urine Opiates Screen Urine Methadone Screen Ur Barbiturates Screen Ur Phencyclidine Scrn Ur Amphetamines Screen U Benzodiazepines Scrn U Oth Cocaine Metabols U Cannabinoids Screen Alcohol, Quantitative 01/17/19 01/17/19 01/17/19 19:15 20:48 23:40 WBC RBC Hgb Hct MCV MCH MCHC RDW Plt Count MPV Neut % (Auto) Lymph % (Auto) [place] % (Auto) Eos % (Auto) Baso % (Auto) Lymph # (Auto) [place] # (Auto) Eos # (Auto) Baso # (Auto) Absolute Neuts (auto) PT INR APTT Sodium 141 Potassium 4.0 Chloride 103 Carbon Dioxide 28 Anion Gap 14 BUN 22 H Creatinine 1.4 Est GFR ( Amer) > 60 Est GFR (Non-Af Amer) 50 Random Glucose 111 H Calcium 8.9 Phosphorus 2.9 Magnesium 2.5 H Total Bilirubin 0.3 AST 36 ALT 27 Alkaline Phosphatase 73 Lactate Dehydrogenase Total Creatine Kinase CK-MB (CK-2) CK-MB (CK-2) % Troponin I 0.03 D 0.06 D Total Protein 7.6 Albumin 3.8 Globulin 3.8 Albumin/Globulin Ratio 1.0 L Urine Color Urine Appearance Urine pH Ur Specific [place] Urine Protein Urine Glucose (UA) Urine Ketones Urine Blood Urine Nitrate Urine Bilirubin Urine Urobilinogen Ur Leukocyte Esterase Urine Opiates Screen Urine Methadone Screen Ur Barbiturates Screen Ur Phencyclidine Scrn Ur Amphetamines Screen U Benzodiazepines Scrn U Oth Cocaine Metabols U Cannabinoids Screen Alcohol, Quantitative < 10 01/18/19 01/18/19 01:35 09:00 WBC RBC Hgb Hct MCV MCH MCHC RDW Plt Count MPV Neut % (Auto) Lymph % (Auto) [place] % (Auto) Eos % (Auto) Baso % (Auto) Lymph # (Auto) [place] # (Auto) Eos # (Auto) Baso # (Auto) Absolute Neuts (auto) PT INR APTT Sodium Potassium Chloride Carbon Dioxide Anion Gap BUN Creatinine Est GFR ( Amer) Est GFR (Non-Af Amer) Random Glucose Calcium Phosphorus Magnesium Total Bilirubin AST ALT Alkaline Phosphatase Lactate Dehydrogenase 456 Total Creatine Kinase 249 H CK-MB (CK-2) 2.1 CK-MB (CK-2) % Cancelled Troponin I 0.09 D Total Protein Albumin Globulin Albumin/Globulin Ratio Urine Color Urine Appearance Urine pH Ur Specific [place] Urine Protein Urine Glucose (UA) Urine Ketones Urine Blood Urine Nitrate Urine Bilirubin Urine Urobilinogen Ur Leukocyte Esterase Urine Opiates Screen Negative Urine Methadone Screen Negative Ur Barbiturates Screen Negative Ur Phencyclidine Scrn Negative Ur Amphetamines Screen Negative U Benzodiazepines Scrn Negative U Oth Cocaine Metabols Negative U Cannabinoids Screen Negative Alcohol, Quantitative Assessment & Plan - Assessment and Plan (Free Text) Assessment: 68 yo M with h/o LBP (on opioids), Jerel's, Diverticulitis, Gastritis presenting with acute on chronic rectal pain. # Rectal Pain/Buttock Pain: Suspect multifactorial from opiod induced constipat ion with possible component of stercoral colitis explaining colitis seen on CT. No SIRS. Also component of deconditioning as pt reports buttock feeling "soft" since not as strong as previously. # Barrets: +IM but no dysplasia in 2012 # CRC screening: Overdue, no prior CSPY # Mesenteric mass vs cyst seen on CT Plan: - Miralax BID with good fluid intake - PT evaluation - DCed antibiotics as no signs of GI infection - Recommend outpatient EGD to assess Connell's - Daily PPI - Defer to suurgery regarding mesenteric mass vs cyst, likely surveillance CT in 3 months - Recommend outpatient Colonoscopy for CRC screen - OK for DC later today from GI standpoint if stable/improved Pt seen and examined with Dr. Partida; please see attestation for further recs/changes. <Folr Partida - Last Filed: 01/18/19 23:07> Meds - Medications Medications: Current Medications Aspirin (Aspirin Chewable) 81 mg PO DAILY [facility] Last Admin: 01/18/19 10:00 Dose: 81 mg Clonazepam (Klonopin) 0.5 mg PO BID [facility]; Protocol Last Admin: 01/18/19 14:50 Dose: 0.5 mg Clopidogrel Bisulfate (Plavix) 75 mg PO DAILY [facility] Sodium Chloride (Sodium Chloride 0.45%) 1,000 mls @ 80 mls/hr IV .[id number] [facility] Last Admin: 01/18/19 10:39 Dose: 80 mls/hr Polyethylene Glycol (Miralax) 17 gm PO BID [facility] Last Admin: 01/18/19 17:37 Dose: 17 gm Results - Vital Signs Recent Vital Signs: Last Vital Signs Temp 99.2 F 01/18/19 18:49 Pulse 88 01/18/19 22:00 Resp 18 01/18/19 18:49 BP 155/81 H 01/18/19 18:49 Pulse Ox 94 L 01/18/19 06:00 - Labs Result Diagrams: 01/17/19 19:15 01/17/19 19:15 Labs: Laboratory Results - last 24 hr 01/17/19 01/18/19 01/18/19 23:40 01:35 09:00 Lactate Dehydrogenase 456 Total Creatine Kinase 249 H CK-MB (CK-2) 2.1 CK-MB (CK-2) % Cancelled Troponin I 0.06 D 0.09 D Carcinoembryonic Ag Urine Opiates Screen Negative Urine Methadone Screen Negative Ur Barbiturates Screen Negative Ur Phencyclidine Scrn Negative Ur Amphetamines Screen Negative U Benzodiazepines Scrn Negative U Oth Cocaine Metabols Negative U Cannabinoids Screen Negative 01/18/19 01/18/19 16:12 16:12 Lactate Dehydrogenase 396 Total Creatine Kinase 338 H CK-MB (CK-2) 2.1 CK-MB (CK-2) % Cancelled Troponin I 0.07 D Carcinoembryonic Ag 2.0 Urine Opiates Screen Urine Methadone Screen Ur Barbiturates Screen Ur Phencyclidine Scrn Ur Amphetamines Screen U Benzodiazepines Scrn U Oth Cocaine Metabols U Cannabinoids Screen Attending/Attestation - Attestation I have personally seen and examined this patient.: Yes I have fully participated in the care of the patient.: Yes I have reviewed all pertinent clinical information: Yes Notes (Text): 01/18/19 22:48 I have seen and examined the patient with the GI fellow. In summary, 68 yo M with chronic LBP on opioids, Connell's esophagus, h/o diverticulitis with frequent admissions for rectal pain now p/w the same. General: elderly man, lying in bed Abd: soft, nt, nd Rectal: no fluid collections or abnormalities seen in the perineum, no external hemorrhoids noted CT abd/pelvis reviewed with thickening of the rectum, stool throughout as well as mesenteric adenitis. Plan: -unclear if pt truly has rectal pain vs. gluteal pain -image findings may be 2/2 underdistention vs. stercoral colitis from chronic constipation -therefore, would recommend a bowel regimen given chronic opioids --> Miralax 17 gm po bid -encourage po hydration -if with sxs from mesenteric adenitis, would recommend short course of NSAIDs, but pt essentially asx -aggressive PT as pt is severely deconditioned 01/18/19 22:48
--- NOTE | 2019-01-18 12:40 | CT ---
Date of service: 01/17/2019 PROCEDURE: CT Abdomen and Pelvis with contrast HISTORY: perirectal pain, r/o abscess COMPARISON: 03/08/2018 TECHNIQUE: Contrast dose: 100 cc of Omni 350 Radiation dose: Total exam DLP = 1077.24 mGy-cm. This CT exam was performed using one or more of the following dose reduction techniques: Automated exposure control, adjustment of the mA and/or kV according to patient size, and/or use of iterative reconstruction technique. FINDINGS: LOWER THORAX: Unremarkable. LIVER: Unremarkable. No gross lesion or ductal dilatation. GALLBLADDER AND BILE DUCTS: Unremarkable. PANCREAS: Unremarkable. No gross lesion or ductal dilatation. SPLEEN: Unremarkable. ADRENALS: Unremarkable. No mass. KIDNEYS AND URETERS: Unremarkable. No hydronephrosis. No solid mass. VASCULATURE: Unremarkable. No aortic aneurysm. Aortic calcification BOWEL: Unremarkable. No obstruction. No gross mural thickening. There is a 15 mm mass in the root of the mesentery. There is some surrounding haziness of the mesenteric fat planes. Findings are most consistent with mesenteric adenitis. This mass was not present on the previous exam. Findings are best seen on image 101 series 3. APPENDIX: Normal appendix. PERITONEUM: Unremarkable. No free fluid. No free air. LYMPH NODES: Unremarkable. No enlarged lymph nodes. BLADDER: Unremarkable. REPRODUCTIVE: Unremarkable. BONES: Disc degeneration at L5-S1 OTHER FINDINGS: The report concurs with the preliminary [facility] report IMPRESSION: There is a 15 mm mass in the root of the mesentery. There is some surrounding haziness of the mesenteric fat planes. Findings are most consistent with mesenteric adenitis. This mass was not present on the previous exam.
--- NOTE | 2019-01-18 12:43 | CT ---
Date of service: 01/17/2019 PROCEDURE: CT Lumbar Spine without contrast HISTORY: back pain COMPARISON: None available. TECHNIQUE: Axial computed tomography images were obtained of the lumbar spine without the use of intravenous contrast. Coronal and sagittal reformatted images were created and reviewed. Radiation dose: Total exam DLP = 1742.94 mGy-cm. This CT exam was performed using one or more of the following dose reduction techniques: Automated exposure control, adjustment of the mA and/or kV according to patient size, and/or use of iterative reconstruction technique. FINDINGS: VERTEBRAE: Unremarkable. No fracture. Normal alignment. DISCS/SPINAL CANAL/NEURAL FORAMINA: L1-2: Unremarkable. L2-3: Unremarkable. L3-4: Unremarkable. L4-5: Unremarkable. L5-S1: Disc degeneration with loss of disc height. Right-sided osteophyte formation which narrows the neural foramen PARASPINAL SOFT TISSUES: Unremarkable. OTHER FINDINGS: Aortic calcification The report concurs with the preliminary [facility] report IMPRESSION: L5-S1: Disc degeneration with loss of disc height. Right-sided osteophyte formation which narrows the neural foramen No acute findings
[2019-01-18] MEDS: POLYETHYLENE GLYCOL 3350 17 GM/Dose PACKET PO SCH ×2 (13:12→17:37)
--- NOTE | 2019-01-18 13:13 | CON ---
DATE OF CONSULTATION: 01/18/2019 CARDIOLOGY CONSULTATION HISTORY: The patient is a 68-year-old male with a previous inferior wall myocardial infarction several years ago, who presents with a rectal mass and mesenteric mass. Apparently, no surgery is planned so far. PAST MEDICAL HISTORY: The patient's past medical history includes hypercholesterolemia, he is on amiodarone for questionable reasons. He is on beta-blockers as well as clonidine for hypertension. Blood test shows an elevated troponin consistent with a non-STEMI. He denies chest pain. SOCIAL HISTORY: He denies smoking. REVIEW OF SYSTEMS: Review of systems is free of cardiac symptoms. PHYSICAL EXAMINATION: GENERAL: The patient appears to have some learning disability, although he is oriented x3. VITAL SIGNS: Blood pressure 114/70. NECK: Negative JVD. LUNGS: Clear. HEART: Reveal S1, S2. EXTREMITIES: Without edema. LABORATORY DATA: EKG shows normal sinus rhythm with an old inferior wall RI. Hemoglobin is 14.1. Chemistries, BUN and creatinine are unremarkable. Troponins are up to 0.06, which is indeterminate. IMPRESSION: 1. Probable non-ST elevation myocardial infarction. 2. High probability for coronary artery disease. 3. History of old inferior wall myocardial infarction. 4. Hypercholesterolemia. 5. Hypertension. PLAN: Given these findings, we will start the patient on aspirin as well as Plavix. I have discussed potential cardiac catheterization with the patient on Sunday. The patient is anxious and will think about it. We will tentatively schedule it for Sunday. Sherman Higginbotham MD
[2019-01-18 16:46] LABS: TROPONIN I 0.07 ng/mL
[2019-01-18 16:57] LABS: CK-MB 2.1 ng/mL (0.0-3.6)
--- NOTE | 2019-01-18 19:04 | CARD ---
APPROVED REPORT Date of service: 01/17/2019 EKG Measurement Heart [id number] CT [id number] <Conclusion> Sinus tachycardia Inferior infarct, age undetermined Abnormal ECG
--- NOTE | 2019-01-18 19:42 | CON ---
DATE: 01/18/2019 ONCOLOGY EVALUATION HISTORY OF PRESENT ILLNESS: This is a 68-year-old man who has a mesenteric mass. The patient says that in May or June of 2018, he was sitting on a chair and it fell, and after that, he noticed his left buttock became softer. He said it feels like a sponge. He went for physical therapy. I am not sure what that was for. He says it was not painful. It says it was soft the buttock is what he says. No numbness. No radiation down the leg. I am not sure why he wants physical therapy for, but in any event, he says that it is very soft in his buttock and the upper back side, posterior part of his thigh. No loss of weight. No pains in his abdomen. No shortness of breath. No diarrhea. No blood in his rectum and it is unclear to me why he is admitted now. He says for that spongy feeling in his buttock of his left and the upper posterior part of his left thigh. PHYSICAL EXAMINATION: SKIN: No petechiae. No bruises. HEENT: Anicteric. No temporal wasting noted. NODES: Nonpalpable masses in the cervical, supraclavicular and specifically inguinal regions. LUNGS: Clear to A and P. No vertebral tenderness. HEART: S1, S2. ABDOMEN: Shows no liver, no spleen, no tenderness, no rebound, no mass. EXTREMITIES: Shows no edema. I had him turn over and checked the buttock area and posterior part of the left thigh. I do not quite understand what he is saying, and I do not feel an actual mass without specific tenderness in that area. The CAT scan shows the 2.2 cm mass at the root of the mesenteric area. If possible, we would ask Dr. Sandoval to perform interventional radiology and do biopsy for that area. The only other thing I can think of the buttock area is to do a CAT scan of the pelvis and right thigh of a mass there. Quite frankly, I cannot feel the mass at all there. So at this point, I would suggest doing a CAT scan guided biopsy of that mesenteric mass. Tee MD Shar
--- NOTE | 2019-01-18 20:03 | HP ---
DATE OF EXAM: 01/18/2019 HISTORY OF PRESENT ILLNESS: I did house calls on him. He finally came to the emergency room. He has got very severe rectal pain, some chest pain also. He has been dealing with his lower intestinal pain for a while, I have been asking to see a orthopedic technician and get a colonoscopy, he refused. Now, the pain got bad, he had some chest pain and he came to the emergency room. He is a 68-year-old white man with chronic back pain, coronary artery disease, diverticulitis, persistent rectal pain for months. Currently, he has got a bug in his rectum and now he is here in the ER. PAST MEDICAL HISTORY: He has had pneumonias in the past, he had an WI in the past, hypertension. He has had cataracts done, hepatic cyst, arthritis, back pain, joint disease, falls. He has had rhabdomyolysis, unsteady gait. He has got some physical therapy. He has got hiatal hernia, lumbar disc disease, lumbar radiculopathy. He has had history of diverticulitis, gastritis, hemorrhoids. Now he has got rectal pain. He has got anxiety, depression. He has gone for psychiatric evaluation. He had triple-vessel disease with open heart surgery in 2015. FAMILY HISTORY: There is cardiac disease in the family. SOCIAL HISTORY: No smoker. No drinking. No drugs. ALLERGIES: HE HAS ALLERGIES TO PENICILLIN. MEDICATIONS: He is on Klonopin, Lyrica, Cordarone, valsartan, hydrochlorothiazide, Lipitor, Drisdol, Lopressor, omeprazole, Topamax and clonidine, Catapres patch. REVIEW OF SYSTEMS: He is fatigued. He is concerned. He is worried. No acute vision or hearing issues, but they are chronic. No sore throat. No shortness of breath or cough. There is some chest pain, but no palpitations, it is on and off. He is having constipation and rectal pain. No problems urinating. He has chronic back pain. No rashes that he knows of. No headache or dizziness. He is definitely anxious. PHYSICAL EXAMINATION VITAL SIGNS: He has 98.8 temperature, when he came in, it was 99.5. He has 112 pulse, 18 respiratory rate, 157/86 blood pressure, and 95% O2 sat. GENERAL: He is alert, comfortable in bed, a little bit distressed. HEENT: Head; atraumatic, normocephalic. He is alert and oriented x3. Extraocular muscles are intact. Pupils equally reactive to light. Throat is moist. NECK: Supple. HEART: Regular rate. Normal S1, S2. LUNGS: Decreased breath sounds bilaterally. Poor inspiration, but no wheezes, rhonchi or rales. ABDOMEN: Soft, nontender. Positive bowel sounds. No guarding. No rebound. No CVA tenderness. RECTAL: Exam was done in the emergency room. There was tenderness, normal tone. Anal fissures at 12 o'clock. No occult blood. EXTREMITIES: He can move both upper and lower extremities. No edema. NEUROLOGIC: GCS is 15. Cranial nerves II through XII grossly intact. Speech is normal, maybe a little pressured speech. Alert and oriented x3. SKIN: Warm and dry. No apparent rashes. LYMPHATICS: Thyroid midline. No palpable appreciable lymphadenopathy I could tell. LABORATORY DATA: He had multiple tests done. He had a lumbar spine showing some degenerative changes. He had a CAT scan of the abdomen and pelvis, which showed a mesentery mass and proctitis, very severe. He has a negative urine drug screen, negative urine. He has 141 sodium, potassium is 4, BUN is 22, creatinine 1.4, he will be on IV fluids. GFR is 50, sugar is 111, calcium is 8.9, phosphorous 2.9, magnesium 2.5, total bili is 0.3. AST is 36, ALT is 27, alk phos 73. His troponin Is are 0.03 and 0.06, indeterminate; 7.6 total protein. INR is 1.05. White count is 10, hemoglobin 14.1, hematocrit 42.4, platelets of 318. ASSESSMENT AND PLAN: Dr. Higginbotham, the toll transmission worker saw him and reviewed his tests and wants to do a cardiac catheterization on Sunday. I called in Surgery about the mesenteric mass and they called me of the cyst, although the CAT scan called it a cancer. I want Psychiatry to see him due to his anxiety and his obsessive-compulsive issues. He will be an inpatient because he will have to go for the catheterization on Sunday. I will get some metronidazole for his rectal issues, I am hoping that will help him, IV fluids and physical therapy. Thom DO [facility] # [id number]
[2019-01-19] MEDS: Sodium Chloride 0.45% 1,000 ML IV SCH ×3 (00:40→23:30)
[2019-01-19 01:10] LABS: TROPONIN I 0.06 ng/mL
[2019-01-19 01:23] LABS: CK-MB 2.2 ng/mL (0.0-3.6)
--- NOTE | 2019-01-19 05:18 | CP.PCM.PN ---
Subjective - Date & Time of Evaluation Date of Evaluation: 01/19/19 Time of Evaluation: 05:16 - Subjective Subjective: S:Patient was seen earlier . He requested Klonopin. Stated that he always takes his klonopin but he needs only half of his regular dose which is 0.5 mg . Otherwise he would not be able to sleep. Later on when I went to floor for follow up, I was told that patient had 2 episodes of atrial flutter. He is allegedly supposed to go for cath on Sunday. O:VSS. Obese, not in distress. LUNGS: Normal breathing pattern. A:Insomnia. Atrial flutter. P:Klonopin 0.25 mg PO was given. Objective - Vital Signs/Intake and Output Vital Signs (last 24 hours): Temp Pulse Resp BP Pulse Ox 98.6 F 97 H 18 128/85 96 01/19/19 00:01 01/19/19 02:00 01/19/19 00:01 01/19/19 00:01 01/19/19 00:01 Intake and Output: 01/18/19 01/19/19 18:59 06:59 Intake Total 1200 Balance 1200 - Medications Medications: Current Medications Aspirin (Aspirin Chewable) 81 mg PO DAILY [facility] Last Admin: 01/18/19 10:00 Dose: 81 mg Clonazepam (Klonopin) 0.5 mg PO BID [facility]; Protocol Last Admin: 01/18/19 14:50 Dose: 0.5 mg Clopidogrel Bisulfate (Plavix) 75 mg PO DAILY [facility] Sodium Chloride (Sodium Chloride 0.45%) 1,000 mls @ 80 mls/hr IV .[id number] [facility] Last Admin: 01/19/19 00:40 Dose: 80 mls/hr Polyethylene Glycol (Miralax) 17 gm PO BID [facility] Last Admin: 01/18/19 17:37 Dose: 17 gm - Labs Labs: 01/17/19 19:15 01/17/19 19:15 PT 11.7 SECONDS (9.4-12.5) 01/17/19 19:15 INR 1.05 01/17/19 19:15 APTT 30.9 Seconds (26.9-38.3) 01/17/19 19:15
[2019-01-19 06:33] LABS: HEMOGLOBIN 13.5 g/dL (14.0-18.0); MEAN CELL VOLUME 88.5 fl (80.0-105.0); MEAN CORPUSCULAR HEMOGLOBIN 29.3 pg (25.0-35.0); MEAN CORPUSCULAR HGB CONC 33.1 g/dl (31.0-37.0); MEAN PLATELET VOLUME 10.4 fl (7.0-11.0); RBC 4.61 10^6/uL (3.5-6.1); RED CELL DISTRIBUTION WIDTH 14.1 % (11.5-14.5); WHITE BLOOD COUNT 11.3 10^3/uL (4.5-11.0)
[2019-01-19 07:14] LABS: ALB/GLOB RATIO 0.9 (1.1-1.8); ALBUMIN 3.2 g/dL (3.0-4.8); ALT/SGPT 24 U/L (7-56); AST/SGOT 33 U/L (17-59); BLOOD UREA NITROGEN 19 mg/dL (7-21); CALCIUM 8.5 mg/dL (8.4-10.5); GFR NON-AFRICAN AMERICAN > 60
[2019-01-19] MEDS: POLYETHYLENE GLYCOL 3350 17 GM/Dose PACKET PO SCH ×4 (10:16→17:16)
--- NOTE | 2019-01-19 13:00 | CP.PCM.PN ---
<JoslynRuben blakelycassidy - Last Filed: 01/19/19 13:31> Subjective - Date & Time of Evaluation Date of Evaluation: 01/19/19 Time of Evaluation: 13:15 - Subjective Subjective: PGY-4 GI Fellow Prog Note Pt lying in bed when seen today. States he is scared about planned cath. He is tolerating diet, no abd pain, n/v, but denied BM. Nursing notes that he decline Miralax this AM. 5 point ROS negative other than stated above Objective - Vital Signs/Intake and Output Vital Signs (last 24 hours): Temp Pulse Resp BP Pulse Ox 97 F L 86 20 147/95 H 96 01/19/19 05:58 01/19/19 10:15 01/19/19 05:58 01/19/19 10:15 01/19/19 05:58 Intake and Output: 01/19/19 01/19/19 06:59 18:59 Intake Total 2400 Output Total 520 Balance 1880 - Medications Medications: Current Medications Aspirin (Aspirin Chewable) 81 mg PO DAILY [facility] Last Admin: 01/19/19 10:15 Dose: 81 mg Clonazepam (Klonopin) 0.5 mg PO BID [facility]; Protocol Last Admin: 01/19/19 10:15 Dose: 0.5 mg Clopidogrel Bisulfate (Plavix) 75 mg PO DAILY [facility] Last Admin: 01/19/19 10:15 Dose: 75 mg Sodium Chloride (Sodium Chloride 0.45%) 1,000 mls @ 80 mls/hr IV .[id number] [facility] Last Admin: 01/19/19 00:40 Dose: 80 mls/hr Loratadine (Claritin) 10 mg PO DAILY [facility] Last Admin: 01/19/19 10:15 Dose: 10 mg Losartan Potassium (Cozaar) 50 mg PO DAILY [facility] Last Admin: 01/19/19 10:15 Dose: 50 mg Polyethylene Glycol (Miralax) 17 gm PO BID [facility] Last Admin: 01/19/19 10:22 Dose: Not Given - Labs Labs: 01/19/19 06:00 01/19/19 06:00 PT 11.7 SECONDS (9.4-12.5) 01/17/19 19:15 INR 1.05 01/17/19 19:15 APTT 30.9 Seconds (26.9-38.3) 01/17/19 19:15 - Constitutional Appears: No Acute Distress, Chronically Ill - Eye Exam Eye Exam: EOMI. absent: Scleral icterus - ENT Exam ENT Exam: Mucous Membranes Moist Additional comments: poor dentition - Respiratory Exam Respiratory Exam: NORMAL BREATHING PATTERN. absent: Accessory Muscle Use, Respiratory Distress - GI/Abdominal Exam GI & Abdominal Exam: Soft, Normal Bowel Sounds. absent: Bruit, Distended, Firm, Guarding, Rigid, Tenderness, Pulsatile Mass Additional comments: obese limiting exam Assessment and Plan - Assessment and Plan (Free Text) Assessment: 68 yo M with h/o LBP (on opioids), Jerel's, Diverticulitis, Gastritis presenting with acute on chronic rectal pain. # Rectal Pain/Buttock Pain: Suspect multifactorial from opioid induced constipation with possible component of stercoral colitis explaining colitis seen on CT. No SIRS. Also component of deconditioning as pt reports buttock feeling "soft" since not as strong as previously. # Barrets: +IM but no dysplasia in 2012 # CRC screening: Overdue, no prior CSPY # Mesenteric mass vs cyst seen on CT Plan: - Miralax BID with good fluid intake; pt declined earlier, counseled on importance of bowel regimen in setting of chronic opioids - PT evaluation - Daily PPI - Onc and primary planning IR biopsy of mesenteric mass vs cyst - Recommend outpatient EGD to assess Connell's - Recommend outpatient Colonoscopy for CRC screen Thank you for the consult; will sign off. Please call if questions. Pt discussed with Dr. Partida; please see attestation for further recs/changes. <Flor Partida - Last Filed: 01/19/19 14:12> Objective - Vital Signs/Intake and Output Vital Signs (last 24 hours): Temp Pulse Resp BP Pulse Ox 98.2 F 73 18 136/79 96 01/19/19 12:00 01/19/19 12:00 01/19/19 12:00 01/19/19 12:00 01/19/19 05:58 Intake and Output: 01/19/19 01/19/19 06:59 18:59 Intake Total 2400 Output Total 520 Balance 1880 - Medications Medications: Current Medications Aspirin (Aspirin Chewable) 81 mg PO DAILY [facility] Last Admin: 01/19/19 10:15 Dose: 81 mg Clonazepam (Klonopin) 0.5 mg PO BID [facility]; Protocol Last Admin: 01/19/19 10:15 Dose: 0.5 mg Clopidogrel Bisulfate (Plavix) 75 mg PO DAILY [facility] Last Admin: 01/19/19 10:15 Dose: 75 mg Sodium Chloride (Sodium Chloride 0.45%) 1,000 mls @ 80 mls/hr IV .[id number] [facility] Last Admin: 01/19/19 00:40 Dose: 80 mls/hr Loratadine (Claritin) 10 mg PO DAILY [facility] Last Admin: 01/19/19 10:15 Dose: 10 mg Losartan Potassium (Cozaar) 50 mg PO DAILY [facility] Last Admin: 01/19/19 10:15 Dose: 50 mg Polyethylene Glycol (Miralax) 17 gm PO BID [facility] Last Admin: 01/19/19 13:39 Dose: 17 gm - Labs Labs: 01/19/19 06:00 01/19/19 06:00 PT 11.7 SECONDS (9.4-12.5) 01/17/19 19:15 INR 1.05 01/17/19 19:15 APTT 30.9 Seconds (26.9-38.3) 01/17/19 19:15 Attending/Attestation - Attestation I have fully participated in the care of the patient.: Yes I have reviewed all pertinent clinical information, including history, physical exam and plan: Yes Notes (Text): 01/19/19 13:55 I have discussed the case with the GI fellow. Recommend adherence to bowel regimen. Encourage po hydration. Can consider course of NSAIDs for mesenteric adenitis. Will sign off, pls call with questions. 01/19/19 14:11
--- NOTE | 2019-01-19 15:03 | PN ---
DATE: 01/19/2019 SUBJECTIVE: He has multiple complaints this morning. He is having some rectal problems, which he has had for months, a rubbery feeling, also he was having sinus issues like allergies, which he gets from time to time and wants some allergy medication; and he is concerned about his cardiac catheterization. I explained to him why we are keeping him here and what is going on. Also he is quite weak, going for physical therapy to evaluate him for a possible TCU versus [facility]. I appreciate the consults. He is now on aspirin, Klonopin, MiraLax, Plavix and IV fluids. He is off a lot of his medications. PHYSICAL EXAMINATION: VITAL SIGNS: He has 97 temp, 85 pulse, 150/90 blood pressure, 20 respiratory rate, 96% O2 sat on room air. HEENT: His head is atraumatic and normocephalic. Throat is moist. NECK: Supple. HEART: Regular rate. LUNGS: Decreased breath sounds. ABDOMEN: Soft and nontender. EXTREMITIES: No edema. LABORATORY DATA: He has a white count of 11.3, hemoglobin 13.5, hematocrit 40.8, platelets of 314. A 139 sodium, potassium 3.9, BUN is 19, creatinine 1.2, GFR is greater than 60, sugar is 87, calcium is 8.5, total bili is 0.4, AST is 33, ALT is 34, alk phos 62. Troponin was high as 0.09, 0.07 and now 0.06. ASSESSMENT AND PLAN: He possibly had a small non-ST elevation myocardial infarction, albumin of 6.8, hopefully he goes for the cardiac catheterization tomorrow with Dr. Higginbotham. Dr. Myles, the oncologist feels he should have a biopsy of this mass and the mesentery. I will call in Dr. Sherman Sandoval for CT-guided biopsy. GI took him off his medications for his bowels right now, put him on MiraLax. His blood pressure is a little bit borderline. I am going to put him on a little valsartan today. He was taking that in the outpatient and hopefully, he will do well tomorrow, order physical therapy, labs. He hopefully will go for the cardiac cath tomorrow. Thom Ruiz DO
--- NOTE | 2019-01-19 15:44 | PN ---
DATE: 01/19/2019 CARDIOLOGY FOLLOWUP SUBJECTIVE: Repeat troponins reveal elevated troponin consistent with a non-STEMI. The patient denies chest pain now. PHYSICAL EXAMINATION: VITAL SIGNS: Blood pressure varies from 147 to 150 systolic, heart rates in the 80s. NECK: Negative JVD. LUNGS: Without rales. HEART: S1 and S2. EXTREMITIES: Without edema. LABORATORY DATA: Troponin 0.06. BUN and creatinine are unremarkable. IMPRESSION: 1. Probable non-ST segment elevation myocardial infarction. 2. Coronary artery disease. 3. Old inferior wall myocardial infarction. 4. History of hypertension. 5. History of hypercholesterolemia. PLAN: Given these findings, I have tentatively scheduled the patient for cardiac catheterization. Today,I spoke with the brother on the phone. We will arrange for catheterization if the patient agrees tomorrow. Sherman Higginbotham MD
--- NOTE | 2019-01-19 17:34 | CARD ---
APPROVED REPORT Date of service: 01/19/2019 EKG Measurement Heart [id number] <Conclusion> Atrial flutter with variable AV block Possible Inferior infarct, age undetermined Abnormal ECG
--- NOTE | 2019-01-19 22:31 | CON ---
DATE: 01/19/2019 HISTORY OF PRESENT ILLNESS: The patient is a 68-year-old single male with a history of somatoform disorder, NOS; obsessive personality disorder; as well as depression; anxiety; one prior psychiatric hospitalization in 2013, treated with Risperdal, Klonopin, and trazodone. No current outpatient psychiatric treatment for many years, who was admitted after he presented to the ER complaining of worsening rectal pain for approximately one week. Psychiatry was consulted for patient's anxiety on the unit. I reviewed past records, recent notes, and met with the patient at bedside. I introduced myself and the patient does not appear to be very pleased to be seeing a psychiatric financial planning consultant. However, he is superficially cooperative with my questioning. Patient reports that he is suffering anxiety. He needs to know what is going on with his body, needs to know what his current diagnosis and diagnosis and diagnostics and what our plan is by medical team. Patient appears anxious, he does not appear depressed. He denies depression. He denies having any hallucinations or paranoia of persecution, however, this gentleman presents as unhappy, crabby, and ramírez. Patient reports that he does not want to be hospitalized, does appear to want to improve medically. He is worried about his 65-year-old intellectually challenged brother who is home alone. Patient is not actively hallucinating and has been fairly controlled though labile and depressed and manic at times which is part of his personality according to prior records. Insight and judgment are considered to be poor to fair. Impulse control is tenuous, although overall the patient is very likely harmless. PHYSICAL EXAMINATION: VITAL SIGNS: Reviewed. LABORATORY DATA: Reviewed. MEDICATIONS: Relevant psychiatric medication include Klonopin 0.5 mg p.o. b.i.d. PSYCHIATRIC HISTORY: As noted, the patient with one prior hospitalization from 01/25/2014 to 01/30/2014. He was treated and he was given diagnosis of somatoform disorder and obsessive personality disorder and discharged on Risperdal 0.25 mg a.m. and 0.5 mg at bedtime, Xanax 0.25 mg, and trazodone 50 mg at bedtime. Patient was in treatment with Dr. Abarca prior to 2002 and then followed up with for a couple of years and then stopped seeing psychiatrist altogether and obtained Klonopin script from his pain management doctor. He denies any suicide attempts. SOCIAL HISTORY: Patient is single. He has no children. He lives with his intellectually challenged brother who is 65 years old, younger than him. He is a college graduate. He denies any drug or alcohol issues. IMPRESSION: Somatoform disorder by history, anxiety disorder and by history patient has obsessive personality disorder though does not show any overt manifestation of this at this time. RECOMMENDATIONS: We will continue with Klonopin 0.5 mg p.o. b.i.d. and add trazodone to help with the patient's sleep as he has complained about this issue. Patient is not a danger to himself or others. He is not overtly disorganized. He does not appear to warrant any psychiatric intervention at this time. However, would benefit from psychiatric followup once he is discharged and in this regard treatment team should offer referral for psychiatric outpatient followup once he is ultimately medically cleared. Psychiatry will sign off at this time. Please re-consult kate. Adam Magallon MD
[2019-01-20 07:34] LABS: HEMOGLOBIN 12.9 g/dL (14.0-18.0); MEAN CELL VOLUME 88.1 fl (80.0-105.0); MEAN CORPUSCULAR HEMOGLOBIN 28.4 pg (25.0-35.0); MEAN CORPUSCULAR HGB CONC 32.2 g/dl (31.0-37.0); MEAN PLATELET VOLUME 10.2 fl (7.0-11.0); RBC 4.55 10^6/uL (3.5-6.1)
[2019-01-20 08:01] LABS: ALBUMIN 3.3 g/dL (3.0-4.8); ALT/SGPT 20 U/L (7-56); AST/SGOT 32 U/L (17-59); BLOOD UREA NITROGEN 20 mg/dL (7-21); CALCIUM 8.5 mg/dL (8.4-10.5); GFR NON-AFRICAN AMERICAN 55
[2019-01-20] MEDS ORDERED: Iohexol 350mgl/ml 50 ML ONE (11:23)
[2019-01-20] MEDS ORDERED: Lidocaine PF 2% (5 ml) Inj (For Cardiac Arrhy) ONE (11:23)
[2019-01-20] MEDS ORDERED: Iodixanol 320 MG/ML 100 ML BOTTLE IV ONE (11:23)
[2019-01-20] MEDS ORDERED: Iodixanol 320 MG/ML 200 ML BOTTLE IV ONE (11:23)
--- NOTE | 2019-01-20 11:31 | CP.PCM.PCO ---
Physician Communication Note - Physician Communication Note Physician Communication Note: psychiatry team signed off
[2019-01-20] MEDS ORDERED: Midazolam 2 MG/2 ML VIAL ONE ×2 (12:16→12:19)
[2019-01-20] MEDS ORDERED: Digoxin 500 mcg/2ml (0.5 mg/2ml) Inj ONE (12:32)
[2019-01-20] MEDS ORDERED: Sodium Chloride 0.9% 1,000 ML IV SCH (13:15)
[2019-01-20 13:22] VITALS: PULSE 110
--- NOTE | 2019-01-20 13:59 | CP.PCM.APN ---
Subjective - Date & Time of Evaluation Date of Evaluation: 01/20/19 Time of Evaluation: 10:15 - Subjective Subjective: pt off floor in cathead worker- will follow Review of Systems - Review of Systems All systems: reviewed and no additional remarkable complaints except Objective - Vital Signs/Intake and Output Vital Signs (last 24 hours): Temp Pulse Resp BP Pulse Ox 98.1 F 98 H 18 150/88 95 01/20/19 00:01 01/20/19 10:00 01/20/19 00:01 01/20/19 00:01 01/20/19 00:01 Intake and Output: 01/20/19 01/20/19 06:59 18:59 Intake Total 1920 Output Total 2100 Balance -180 - Medications Medications: Current Medications Aspirin (Ecotrin) 81 mg PO DAILY [facility] Atorvastatin Calcium (Lipitor) 40 mg PO DIN [facility] Last Admin: 01/19/19 22:28 Dose: 40 mg Clonazepam (Klonopin) 0.5 mg PO BID [facility]; Protocol Last Admin: 01/19/19 22:30 Dose: 0.5 mg Clopidogrel Bisulfate (Plavix) 75 mg PO DAILY [facility] Last Admin: 01/20/19 08:02 Dose: 75 mg Sodium Chloride (Sodium Chloride 0.9%) 1,000 mls @ 100 mls/hr IV .Q10H [facility] Stop: 01/20/19 19:00 Loratadine (Claritin) 10 mg PO DAILY [facility] Last Admin: 01/19/19 10:15 Dose: 10 mg Losartan Potassium (Cozaar) 50 mg PO DAILY [facility] Last Admin: 01/19/19 10:15 Dose: 50 mg Metoprolol Tartrate (Lopressor) 25 mg PO BID [facility] Polyethylene Glycol (Miralax) 17 gm PO BID [facility] Last Admin: 01/19/19 17:16 Dose: Not Given Pregabalin (Lyrica) 75 mg PO BID [facility] Last Admin: 01/19/19 22:31 Dose: 75 mg Tramadol HCl (Ultram) 50 mg PO Q8 PRN PRN Reason: Pain, moderate (4-7) Last Admin: 01/20/19 04:28 Dose: 50 mg - Labs Labs: 01/20/19 06:30 01/20/19 06:30 PT 11.7 SECONDS (9.4-12.5) 01/17/19 19:15 INR 1.05 01/17/19 19:15 APTT 30.9 Seconds (26.9-38.3) 01/17/19 19:15 Assessment and Plan - Assessment and Plan (Free Text) Plan: ITS Impressions Extremity Ultrasound 01/17/19 17:53 IMPRESSION: 1. No sonographic evidence for deep venous thrombosis in the visualized segments of the left lower extremity. Lumbar Spine CT 01/17/19 17:53 IMPRESSION: L5-S1: Disc degeneration with loss of disc height. Right-sided osteophyte formation which narrows the neural foramen No acute findings Abdomen/Pelvis CT 01/17/19 18:42 IMPRESSION: ITS Impressions Extremity Ultrasound 01/17/19 17:53 IMPRESSION: 1. No sonographic evidence for deep venous thrombosis in the visualized segments of the left lower extremity. 68 yr old male with pmh sig for chronic back pain, cad, barrets, diverticulitis who presented to the ED with worsening rectal pain x 1 week. pt was found to have mesenteric mass on ct as well as elevated troponins (0.09, 0.07 and 0.08) and probable NSTEMI and was taken to the cathead worker with Dr Higginbotham. pt with heme/onc, GI and surgical consultation for possible biopsy of mass. will continue to follow clinical course. BPCI/TIC - BPCIA/TIC Educated pt/family on BPCIA/CIR/Med to Bed Programs: N/A Flyers given, including [facility] Beneficiary letter: N/A Pt/family verbalized understanding & agreed to program: N/A
--- NOTE | 2019-01-20 14:05 | PN ---
DATE: 01/20/2019 SUBJECTIVE: He is resting comfortably in bed. He is supposed to go for a cardiac cath today with Dr. Higginbotham. He has a proctitis chest pain and abdominal mass waiting for Dr. Sherman Sandoval for possible CAT scan guided biopsy. He has been okay spirits. MEDICATIONS: He is on aspirin, Claritin, Cozaar, Klonopin, Lipitor, Lyrica, MiraLax, Plavix, IV fluids and Ultram. OBJECTIVE: VITAL SIGNS: He has a 98.1 temp, 98 pulse, 150/88 blood pressure, 18 respiratory rate, 95% O2 sat on nasal cannula. HEENT: Head is atraumatic, normocephalic. HEART: Regular rate. LUNGS: Decreased breath sounds but clear. ABDOMEN: Soft, obese. EXTREMITIES: No edema. Still he has got complaints of his rectum LABORATORY DATA: He has 11 white count, 12.9 hemoglobin, 40.1 hematocrit with 299 platelets. He has 139 sodium, potassium 4.1, BUN 20, creatinine 1.3, GFR is 55, sugar is 87, calcium is 8.5, total bili is 0.4, AST is 32, ALT is 20, alk phos 59, total protein 6.8. HIV was negative. We will continue as per Cardiology and wait and see if Dr. Sherman Sandoval can do the CT-guided biopsy. Thom Ruiz DO MTDD
[2019-01-20] MEDS: POLYETHYLENE GLYCOL 3350 17 GM/Dose PACKET PO SCH ×2 (15:04→18:00)
--- NOTE | 2019-01-20 15:18 | CARDCATH ---
PROCEDURE DATE: 01/20/2019 HISTORY: The patient is a 68-year-old male who presents with a non-STEMI. He also presented with proctitis as well as a mesenteric mass which no surgery was planned. His elevated troponins needed to be addressed. Because of his history of coronary bypass surgery and high probability for recurrent CAD, the patient was brought to the operations label clerk. PROCEDURES: Left heart catheterization with coronary arteriography, left ventriculogram, left internal mammary artery angiogram, supra-aortic valvular injection, as well as saphenous vein graft angiogram were performed. This was followed by percutaneous transluminal coronary angioplasty and stent of a 99% circumflex artery. The right femoral artery was cannulated with 6-Malaysian sheath. There were no complications. I performed moderate sedation which included the presence of an independent trained observer that assisted in monitoring the patient's level of consciousness and physiologic status. After administration of Versed and fentanyl, my intra-service time was 1 hour. The findings on catheterization revealed a left ventricle that contracted normally. Estimated ejection fraction of 65% to 70%. His coronary anatomy revealed a right dominant circulation. The RCA was occluded in its proximal portion. The left main artery revealed intimal irregularities without critical lesions. The LAD was occluded in its proximal portion. The circumflex artery revealed a 99% stenoses at its ostium extending into the proximal portion of the circumflex artery. The obtuse marginal branch was occluded. Supra-aortic valvular injection revealed no aortic insufficiency. The BARRON to the LAD was found to be patent and provided good antegrade flow to the mid and distal LAD. The saphenous vein graft to the diagonal vessel was patent, which provided good flow to the diagonal vessel which revealed diffuse atherosclerosis. The saphenous vein graft to the obtuse marginal branch was found to be patent and provided good antegrade flow to a diffusely diseased circumflex system. The saphenous vein graft to the RCA was found to be patent and provided good antegrade flow to the mid and distal RCA. The patient was started on intravenous Angiomax under fluoroscopic guide, the guiding catheter was placed in the ostium of the left main artery. An 0.014 ATW wire was used to cross the proximal ostial 99% stenosis circumflex artery which provided a significantly large circumflex system. A 2.0 balloon was utilized to predilate the lesion. This was followed by implantation of a 2.25 x 12 mm drug-eluting stent. Postdilatation was performed with a 2.75 noncompliant balloon up to 15 to 16 ounces of pressure. Repeat coronary artery revealed an excellent result with no residual stenosis and MEGAN-III flow. Angio-Seal was used to close the femoral artery site. In summary, the procedure was successful PTCA and stent of a 99% ostial/proximal circumflex artery stenosis. Cardiac catheterization reveals triple-vessel CAD. Normal LV function was noted. Patent BARRON to the LAD, patent saphenous vein graft to a diffusely diseased diagonal vessel. Patent saphenous vein graft to the obtuse marginal branch that was diffusely diseased. Patent saphenous vein graft to the mid and distal RCA with good flow. Given these findings, the patient will need to remain on aspirin indefinitely and Plavix for least a year. In addition, the patient had a narrow-complex tachycardia, which after giving Adenocard proved to be a-flutter with atypical form. The patient was given 0.5 of digoxin which resulted in good heart rate control. Sherman Higginbotham MD
--- NOTE | 2019-01-20 17:37 | CARD ---
APPROVED REPORT Date of service: 01/20/2019 EKG Measurement Heart [id number] <Conclusion> Atrial flutter- fibrillation with a moderate ventricular response Small non diagnostic Q waves in the inferior leads NDSTT abnormalities Abnormal ECG
[2019-01-21 06:18] VITALS: O2SAT 93
[2019-01-21 07:12] LABS: BASO # 0.03 K/mm3 (0.0-2.0); BASO % 0.2 % (0.0-3.0); EOS # 0.3 (0.0-0.7); EOS % 2.6 % (1.5-5.0); HEMOGLOBIN 13.2 g/dL (14.0-18.0); LYMPH # 2.6 (1.2-3.4); LYMPH % 20.5 % (22.0-35.0); MEAN CELL VOLUME 89.3 fl (80.0-105.0); MEAN CORPUSCULAR HEMOGLOBIN 28.9 pg (25.0-35.0); MEAN CORPUSCULAR HGB CONC 32.4 g/dl (31.0-37.0); MEAN PLATELET VOLUME 10.5 fl (7.0-11.0); MONO # 1.3 (0.1-0.6); MONO % 9.8 % (1.0-6.0); RBC 4.56 10^6/uL (3.5-6.1); RED CELL DISTRIBUTION WIDTH 14.3 % (11.5-14.5); WHITE BLOOD COUNT 12.8 10^3/uL (4.5-11.0)
[2019-01-21 07:25] LABS: ALB/GLOB RATIO 1.1 (1.1-1.8); ALBUMIN 3.5 g/dL (3.0-4.8); ALT/SGPT 26 U/L (7-56); AST/SGOT 34 U/L (17-59); BLOOD UREA NITROGEN 19 mg/dL (7-21); CALCIUM 8.6 mg/dL (8.4-10.5); GFR NON-AFRICAN AMERICAN 55
[2019-01-21] MEDS: POLYETHYLENE GLYCOL 3350 17 GM/Dose PACKET PO SCH (09:49)
[2019-01-21] MEDS ORDERED: methIMAzole 5 MG TAB PO SCH (10:51)
[2019-01-21 12:08] VITALS: BP 120/76; PULSE 91; RESP 20; TEMP 98.6
--- NOTE | 2019-01-21 13:24 | PN ---
DATE: 01/21/2019 SUBJECTIVE: The patient is stable post PTCA and stent. The patient is status post PTCA and stenting status post coronary artery bypass surgery as well as recent non-STEMI. The patient is asymptomatic. He continues to be in atrial flutter. PHYSICAL EXAMINATION: VITAL SIGNS: Stable. NECK: Negative JVD. LUNGS: Without rales. HEART: S1 S2. EXTREMITIES: Without edema. LABORATORY DATA: Unremarkable. IMPRESSION: 1. Stable post percutaneous transluminal coronary angioplasty and stent. 2. Status post non-ST elevation myocardial infarction. 3. Chronic atrial flutter. 4. History of coronary artery bypass surgery. 5. Weakness with propensity for falls. Given these findings, from a cardiac perspective, the patient is stable for discharge on aspirin and Plavix. I do not believe the patient can safely be discharged on anticoagulation given his propensity to fall for his atrial flutter. We will continue his amiodarone as well as aspirin and Plavix at home. Sherman Higginbotham MD
--- NOTE | 2019-01-21 14:33 | DS ---
HOSPITAL COURSE: He is resting comfortably in bed this morning. He wants to go home. He had a cardiac cath yesterday with stent placement. He had renal insufficiency. He had CAD. He has abdominal mass. I was hoping to get a CT-guided biopsy, I do not know if that is going to happen at this time. Dr. Higginbotham changed his medications around, status post PTCA and stent placement of a 99% circumflex artery stenosis for his CAD. 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 The Radiology graded as a cancer. He did not want to do anything about it. GI, Oncology, and Sherman Sandoval for possible CT-guided biopsy. PHYSICAL EXAMINATION VITAL SIGNS: He has a 98.4 temperature, 67 pulse, 120/65 blood pressure, 18 respiratory rate, and 96% O2 sat on room air. HEENT: His head is atraumatic and normocephalic. HEART: Regular rate. LUNGS: Decreased breath sounds, but clear. ABDOMEN: Soft, obese, and nontender. EXTREMITIES: No edema. Will see Dr. Sherman Sandoval to make an outpatient plan to do a CT-guided biopsy. LABORATORY DATA: He has a 12.8 white count, 13.2 hemoglobin, 40.7 hematocrit with 307 platelets. He has a 136 sodium, potassium 4.2, BUN 19, creatinine 1.8, GFR is 55, sugar is 91, calcium is 8.6, total bili is 0.5. AST is 34, ALT is 26, and alk phos 65. ASSESSMENT AND PLAN: If it is okay with Dr. Higginbotham, we will try and discharge him home for outpatient followup for CT-guided biopsy. We will check his labs and followup with white count on the outpatient, which could be stress related due to procedure. He is comfortably he has had no abdominal pain or any pain, and I will put him on his medications, he will be on Claritin, Cozaar, Ecotrin, Klonopin, Lipitor, Lopressor, Lyrica, MiraLax, Plavix, and Ultram as needed. I will follow up in the outpatient on a house call. Thom Ruiz DO MTDSergio
== END 2019-01-21 16:23 | disposition home health service (06) | DRG 247 ==
LOC: ED 16:58 → ERH 01-18 00:01 → 3RNO 01-18 01:46 → 2RNO 01-18 04:22 → OBSVTOIN 01-18 09:34 → 2RNO 01-18 13:19 → 2RSO 01-20 13:00
PROVIDERS: ADMIT Family Medicine; ATTEND Family Medicine
PROC: 027034Z Dilation of Coronary Artery, One Artery with Drug-eluting Intraluminal Device, Percutaneous Approach (ICD-10-PCS; principal; 2019-01-20)
PROC: 4A023N7 Measurement of Cardiac Sampling and Pressure, Left Heart, Percutaneous Approach (ICD-10-PCS; 2019-01-20)
PROC: B2111ZZ Fluoroscopy of Multiple Coronary Arteries using Low Osmolar Contrast (ICD-10-PCS; 2019-01-20)
PROC: B2151ZZ Fluoroscopy of Left Heart using Low Osmolar Contrast (ICD-10-PCS; 2019-01-20)
PROC: B2181ZZ Fluoroscopy of Left Internal Mammary Bypass Graft using Low Osmolar Contrast (ICD-10-PCS; 2019-01-20)
DX: I21.4 Non-ST elevation (NSTEMI) myocardial infarction (principal); I48.92 Unspecified atrial flutter; K57.92 Diverticulitis of intestine, part unspecified, without perforation or abscess without bleeding; K62.89 Other specified diseases of anus and rectum; I25.10 Atherosclerotic heart disease of native coronary artery without angina pectoris; I10 Essential (primary) hypertension; G89.29 Other chronic pain; I88.0 Nonspecific mesenteric lymphadenitis; M51.37 Other intervertebral disc degeneration, lumbosacral region; M54.16 Radiculopathy, lumbar region; K44.9 Diaphragmatic hernia without obstruction or gangrene; F42.8 Other obsessive-compulsive disorder; F60.5 Obsessive-compulsive personality disorder; F41.9 Anxiety disorder, unspecified; K59.03 Drug induced constipation; T40.2X5A Adverse effect of other opioids, initial encounter; E78.00 Pure hypercholesterolemia, unspecified; G47.00 Insomnia, unspecified; H26.9 Unspecified cataract; I12.9 Hypertensive chronic kidney disease with stage 1 through stage 4 chronic kidney disease, or unspecified chronic kidney disease; I25.2 Old myocardial infarction; K22.70 Barrett's esophagus without dysplasia; K29.70 Gastritis, unspecified, without bleeding; K59.00 Constipation, unspecified; K76.89 Other specified diseases of liver; M48.00 Spinal stenosis, site unspecified; N18.9 Chronic kidney disease, unspecified; R29.6 Repeated falls; Z87.01 Personal history of pneumonia (recurrent)

== ENCOUNTER 2019-02-01 12:13 | Emergency (ER) | payer MEDICARE ==
[2019-02-01 12:13] VITALS: PULSE 110; BMI 31.3
--- NOTE | 2019-02-01 13:04 | ED PDOC ---
Arrival/HPI - General Historian: Patient - History of Present Illness Narrative History of Present Illness (Text): 02/01/19 12:45 Patient is a 68 yo male with PMH of chronic back pain, CAD, Diverticulitis presenting to ED with rectal pain for the past month. Patient reports worsening pain and swelling in the rectal area. He feels pain on the inside of the rectum. He reports applying cortisone cream to the area which has worsened his symptoms. He reports regular bowel movements with formed stool, the last one being this morning. He denies blood in the stool or drainage from the rectal area. He reports fever two days prior. He denies chills, chest pain, nausea, vomiting, a bdominal pain, diarrhea, or constipation. From chart review patient was admitted 2 weeks prior for similar issue, GI was consulted and recommended miralax for chronic opioid induced constipation. <Benedict Baez - Last Filed: 02/01/19 14:26> <Ruben Wilder - Last Filed: 02/01/19 16:03> - General Chief Complaint: Pain, Chronic Past Medical History - Past History Past History: No Previous - Infectious Disease Hx of Infectious Diseases: None - Tetanus Immunization Tetanus Immunization: Unknown - Past Medical History Past Medical History: Non-Contributing - Cardiac Hx Cardiac Disorders: Yes Hx [place]: Yes Hx Hypertension: Yes - Pulmonary Hx Respiratory Disorders: Yes Hx Pneumonia: Yes (11/10/14) - Neurological Hx Neurological Disorder: No - HEENT Hx HEENT Disorder: Yes (WEARS RX GLASSES) Hx Cataracts: Yes - Renal Hx Renal Disorder: Yes Other/Comment: hepatic cyst - Endocrine/Metabolic Hx Endocrine Disorders: No - Hematological/Oncological Hx Blood Disorders: No - Integumentary Hx Dermatological Disorder: No - Musculoskeletal/Rheumatological Hx Musculoskeletal Disorders: Yes Hx Arthritis: Yes Hx Back Pain: Yes Hx Degenerative Joint Disease: Yes Hx Falls: Yes Hx Rhabdomyolysis: Yes Hx Unsteady Gait: Yes (uses cane) Other/Comment: hiatal hernia, lumbar disc disease, lumbar radiculopathy - Gastrointestinal Hx Gastrointestinal Disorders: Yes Hx Diverticulitis: Yes Hx Gastritis: Yes Hx Hemorrhoids: Yes - Genitourinary/Gynecological Hx Genitourinary Disorders: No - Psychiatric Hx Psychophysiologic Disorder: Yes Hx Anxiety: Yes Hx Depression: Yes Hx Substance Use: No - Past Surgical History Past Surgical History: No Previous - Surgical History Hx Cardiac Catheterization: Yes (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%) Hx Open Heart Surgery: Yes - Anesthesia Hx Anesthesia: Yes Hx Anesthesia Reactions: No Hx Malignant Hyperthermia: No - Suicidal Assessment Feels Threatened In Home Enviroment: No <Benedict Baez - Last Filed: 02/01/19 14:26> Family/Social History Family/Social History: No Known Family HX Smoking Status: Never Smoked Hx Alcohol Use: No Hx Substance Use: No Hx Substance Use Treatment: No <Benedict Baez - Last Filed: 02/01/19 14:26> Allergies/Home Meds <Benedict Baez - Last Filed: 02/01/19 14:26> <Ruben Wilder - Last Filed: 02/01/19 16:03> Allergies/Adverse Reactions: Allergies Penicillins Adverse Reaction (Verified 02/01/19 12:15) ANAPHYLAXIS Home Medications: Home Meds Medication Instructions Recorded Confirmed Clonazepam [Klonopin] 0.5 mg PO BID PRN 04/16/14 01/18/19 Lyrica 75 mg PO BID 04/17/15 01/21/19 Amiodarone [Cordarone] 200 mg PO DAILY 08/01/15 01/18/19 Valsartan/Hydrochlorothiazide 1 tab PO DAILY 04/02/16 01/18/19 [Diovan Hct 320-25 mg Tablet] Atorvastatin [Lipitor] 1 tab PO HS 04/03/18 01/18/19 Ergocalciferol [Drisdol 50,000 1 cap PO Q7D 04/03/18 01/18/19 Intl Units Cap] Metoprolol Tartrate [Lopressor] 1 tab PO BID 04/03/18 01/21/19 Omeprazole 1 tab PO DAILY 04/03/18 01/18/19 Topiramate [Topamax] 1 tab PO BID 04/03/18 01/18/19 cloNIDine 0.3 mg/24 hr 1 patch TOP Q7D 04/03/18 01/18/19 [catapres-TTS3 0.3 mg/24 hr] Review of Systems - Review of Systems Constitutional: Fevers Eyes: Normal ENT: Sore Throat Respiratory: Normal, Cough. absent: SOB Cardiovascular: Normal. absent: Chest Pain Gastrointestinal: Other (rectal pain and swelling). absent: Abdominal Pain, Stool Changes, Diarrhea, Nausea, Vomiting, Hematochezia Genitourinary Male: Normal. absent: Dysuria Musculoskeletal: Normal Neurological: Normal Endocrine: Normal Hemo/Lymphatic: Normal Psychiatric: Normal <Benedict Baez - Last Filed: 02/01/19 14:26> Physical Exam Vital Signs Reviewed: Yes Temperature: Afebrile Blood Pressure: Normal Pulse: Regular Respiratory Rate: Normal Appearance: Positive for: Well-Appearing, Non-Toxic, Comfortable Pain Distress: None Mental Status: Positive for: Alert and Oriented X 3 - Systems Exam Head: Present: Atraumatic, Normocephalic Pupils: Present: PERRL Extroacular Muscles: Present: EOMI Conjunctiva: Present: Normal Mouth: Present: Moist Mucous Membranes Neck: Present: Normal Range of Motion Respiratory/Chest: Present: Clear to Auscultation. No: Good Air Exchange, Respiratory Distress, Accessory Muscle Use Cardiovascular: Present: Regular Rate and Rhythm, Normal S1, S2. No: Murmurs, Rub, Gallop Abdomen: Present: Normal Bowel Sounds. No: Tenderness, Distention, Peritoneal Signs Rectal: Present: Normal Rectal Tone. No: Occult Blood, Rectal Tenderness, Gross Blood, Hemorrhoids, Fissures, Nodule/Mass/Lesions Upper Extremity: Present: Normal Inspection. No: Cyanosis, Edema Lower Extremity: Present: Normal Inspection. No: Edema Neurological: Present: GCS=15, CN II-XII Intact, Speech Normal Skin: Present: Normal Color Psychiatric: Present: Alert, Oriented x 3, Anxious <Benedict Baez - Last Filed: 02/01/19 14:26> Vital Signs Temp Pulse Resp BP Pulse Ox 02/01/19 13:09 98.4 F 74 22 138/74 99 <Ruben Wilder - Last Filed: 02/01/19 16:03> Medical Decision Making ED Course and Treatment: 02/01/19 14:26 Patient's brother Sesar Osei is being admitted under Dr. Nuñez and as brother is patient's stitcher tape controlled machine, patient will be admitted as well. Dr. Wilder spoke with Dr. Nuñez and he accepts this social admission. <Benedict Baez - Last Filed: 02/01/19 14:26> ED Course and Treatment: 02/01/19 16:[address] Nuñez who refuses admission, stating that patient may return home and follow up with his painter ski edge. - Lab Interpretations Lab Results: Total Bilirubin 0.2 mg/dL (0.2-1.3) 02/01/19 13:35 AST 38 U/L (17-59) 02/01/19 13:35 ALT 21 U/L (7-56) 02/01/19 13:35 Alkaline Phosphatase 67 U/L (38-126) 02/01/19 13:35 Total Protein 7.0 g/dL (5.8-8.3) 02/01/19 13:35 Albumin 3.6 g/dL (3.0-4.8) 02/01/19 13:35 Globulin 3.4 gm/dL 02/01/19 13:35 Albumin/Globulin Ratio 1.1 (1.1-1.8) 02/01/19 13:35 Urine Color Yellow (YELLOW) 02/01/19 14:45 Urine Appearance Clear (CLEAR) 02/01/19 14:45 Urine pH 6.0 (4.7-8.0) 02/01/19 14:45 Ur Specific Clarissa >= 1.030 (1.005-1.035) 02/01/19 14:45 Urine Protein 30 mg/dL (<30 mg/dL) H 02/01/19 14:45 Urine Glucose (UA) Negative mg/dL (NEGATIVE) 02/01/19 14:45 Urine Ketones Negative mg/dL (NEGATIVE) 02/01/19 14:45 Urine Blood Negative (NEGATIVE) 02/01/19 14:45 Urine Nitrate Negative (NEGATIVE) 02/01/19 14:45 Urine Bilirubin Negative (NEGATIVE) 02/01/19 14:45 Urine Urobilinogen 0.2 E.U./dL (<1 E.U./dL) 02/01/19 14:45 Ur Leukocyte Esterase Negative Anrdes/uL (NEGATIVE) 02/01/19 14:45 Urine RBC 1 - 3 /hpf (0-2) H 02/01/19 14:45 Urine WBC 2 - 5 /hpf (0-6) 02/01/19 14:45 Ur Epithelial Cells 6 - 8 /hpf (0-5) H 02/01/19 14:45 - RAD Interpretation Radiology Orders: 02/01/19 13:07 CHEST PORTABLE [RAD] Stat - Medication Orders Current Medication Orders: Discontinued Medications Lidocaine HCl (Lidocaine 2% Viscous) 15 ml MM STAT STA Stop: 02/01/19 13:05 Last Admin: 02/01/19 14:05 Dose: Not Given Non-Admin Reason: Patient Refused <Ruben Wilder - Last Filed: 02/01/19 16:03> Disposition/Present on Arrival - Present on Arrival Any Indicators Present on Arrival: No History of DVT/PE: No History of Uncontrolled Diabetes: No Urinary Catheter: No History of Decub. Ulcer: No History Surgical Site Infection Following: None - Disposition Have Diagnosis and Disposition been Completed?: Yes Disposition Time: 14:28 Patient Plan: Admission <Benedict Baez - Last Filed: 02/01/19 14:26> - Disposition Have Diagnosis and Disposition been Completed?: Yes Disposition Time: 16:02 Patient Plan: Discharge <Ruben Wilder - Last Filed: 02/01/19 16:03> - Disposition Diagnosis: Rectal pain, chronic Disposition: HOME/ ROUTINE Condition: STABLE
[2019-02-01 13:11] VITALS: TEMP 98.4
[2019-02-01 13:45] LABS: BASO # 0.02 K/mm3 (0.0-2.0); BASO % 0.2 % (0.0-3.0); EOS # 0.2 (0.0-0.7); EOS % 1.6 % (1.5-5.0); HEMOGLOBIN 12.8 g/dL (14.0-18.0); LYMPH # 1.4 (1.2-3.4); MEAN CELL VOLUME 88.5 fl (80.0-105.0); MEAN CORPUSCULAR HGB CONC 32.7 g/dl (31.0-37.0); MEAN PLATELET VOLUME 9.6 fl (7.0-11.0); MONO # 0.6 (0.1-0.6); MONO % 5.9 % (1.0-6.0); RBC 4.42 10^6/uL (3.5-6.1); WHITE BLOOD COUNT 10.7 10^3/uL (4.5-11.0)
[2019-02-01 13:57] LABS: ALB/GLOB RATIO 1.1 (1.1-1.8); ALBUMIN 3.6 g/dL (3.0-4.8); ALT/SGPT 21 U/L (7-56); AST/SGOT 38 U/L (17-59); BLOOD UREA NITROGEN 21 mg/dL (7-21); CALCIUM 8.2 mg/dL (8.4-10.5); GFR NON-AFRICAN AMERICAN > 60
--- NOTE | 2019-02-01 15:04 | CP.PCM.HP ---
Past Patient History - Infectious Disease Hx of Infectious Diseases: None - Tetanus Immunizations Tetanus Immunization: Unknown - Past Social History Smoking Status: Never Smoked - CARDIAC Hx Cardiac Disorders: Yes Hx Heart Attack: Yes Hx Hypertension: Yes - PULMONARY Hx Respiratory Disorders: Yes Hx Pneumonia: Yes (11/10/14) - NEUROLOGICAL Hx Neurological Disorder: No - HEENT Hx HEENT Problems: Yes (WEARS RX GLASSES) Hx Cataracts: Yes - RENAL Hx Chronic Kidney Disease: Yes Other/Comment: hepatic cyst - ENDOCRINE/METABOLIC Hx Endocrine Disorders: No - HEMATOLOGICAL/ONCOLOGICAL Hx Blood Disorders: No - INTEGUMENTARY Hx Dermatological Problems: No - MUSCULOSKELETAL/RHEUMATOLOGICAL Hx Musculoskeletal Disorders: Yes Hx Arthritis: Yes Hx Back Pain: Yes Hx Degenerative Joint Disease: Yes Hx Falls: Yes Hx Rhabdomyolysis: Yes Hx Unsteady Gait: Yes (uses cane) Other/Comment: hiatal hernia, lumbar disc disease, lumbar radiculopathy - GASTROINTESTINAL Hx Gastrointestinal Disorders: Yes Hx Diverticulitis: Yes Hx Gastritis: Yes Hx Hemorrhoids: Yes - GENITOURINARY/GYNECOLOGICAL Hx Genitourinary Disorders: No - PSYCHIATRIC Hx Psychophysiologic Disorder: Yes Hx Anxiety: Yes Hx Depression: Yes Hx Substance Use: No - SURGICAL HISTORY Hx Cardiac Catheterization: Yes (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%) Hx Open Heart Surgery: Yes - ANESTHESIA Hx Anesthesia: Yes Hx Anesthesia Reactions: No Hx Malignant Hyperthermia: No Meds Allergies/Adverse Reactions: Allergies Allergy/AdvReac Type Severity Reaction Status Date / Time Penicillins AdvReac ANAPHYLAXIS Verified 02/01/19 12:15 Results - Vital Signs Recent Vital Signs: Last Vital Signs Temp 98.4 F 02/01/19 13:09 Pulse 74 02/01/19 13:09 Resp 22 02/01/19 13:09 BP 138/74 02/01/19 13:09 Pulse Ox 99 02/01/19 13:09 - Labs Result Diagrams: 02/01/19 13:35 02/01/19 13:35 Labs: Laboratory Results - last 24 hr 02/01/19 02/01/19 13:35 13:35 WBC 10.7 RBC 4.42 Hgb 12.8 L Hct 39.1 L MCV 88.5 MCH 29.0 MCHC 32.7 RDW 14.0 Plt Count 325 MPV 9.6 Neut % (Auto) 79.3 H Lymph % (Auto) 13.0 L [place] % (Auto) 5.9 Eos % (Auto) 1.6 Baso % (Auto) 0.2 Lymph # (Auto) 1.4 [place] # (Auto) 0.6 Eos # (Auto) 0.2 Baso # (Auto) 0.02 Absolute Neuts (auto) 8.45 H Sodium 139 Potassium 3.9 Chloride 103 Carbon Dioxide 27 Anion Gap 14 BUN 21 Creatinine 1.1 Est GFR ( Amer) > 60 Est GFR (Non-Af Amer) > 60 Random Glucose 119 H Calcium 8.2 L Total Bilirubin 0.2 AST 38 ALT 21 Alkaline Phosphatase 67 Total Protein 7.0 Albumin 3.6 Globulin 3.4 Albumin/Globulin Ratio 1.1
[2019-02-01 15:12] LABS: URINE BILIRUBIN NEGATIVE (NEGATIVE); URINE BLOOD NEGATIVE (NEGATIVE); URINE GLUCOSE (UA) NEGATIVE (NEGATIVE); URINE LEUKOCYTE ESTERASE NEGATIVE Leu/uL (NEGATIVE); URINE PROTEIN 30 mg/dL (<30 mg/dL); URINE UROBILINOGEN 0.2 E.U./dL (<1 E.U./dL)
[2019-02-01 15:17] LABS: URINE APPEARANCE CLEAR (CLEAR); URINE COLOR YELLOW (YELLOW)
--- NOTE | 2019-02-01 15:20 | RAD ---
Date of service: 02/01/2019 HISTORY: social admit COMPARISON: Comparison chest 08/01/2015 TECHNIQUE: 1 view obtained. FINDINGS: LUNGS: Suspect mild bibasilar atelectasis or scarring. PLEURA: No significant pleural effusion identified, no pneumothorax apparent. CARDIOVASCULAR: Cardiomegaly. Sternotomy wires again noted. Mild aortic atherosclerotic calcification present. OSSEOUS STRUCTURES: No significant abnormalities. VISUALIZED UPPER ABDOMEN: Normal. OTHER FINDINGS: None. IMPRESSION: Mild bibasilar atelectasis or scarring
[2019-02-01 17:05] VITALS: BP 122/79; PULSE 80; RESP 18; O2SAT 98
--- NOTE | 2019-02-02 05:42 | CARD ---
APPROVED REPORT Date of service: 02/01/2019 EKG Measurement Heart [id number] <Conclusion> Sinus rhythm with 1st degree AV block Prolonged QT Abnormal ECG
== END 2019-02-01 17:00 | disposition home or self-care (01) ==
LOC: ED 12:13 → UNDOADMOB 14:45 → ERH 14:45 → ED 17:00
DX: K62.89 Other specified diseases of anus and rectum (principal); G89.29 Other chronic pain; I25.10 Atherosclerotic heart disease of native coronary artery without angina pectoris; I25.2 Old myocardial infarction; I10 Essential (primary) hypertension

== ENCOUNTER 2019-02-05 19:36 | Emergency (ER) | payer MEDICARE ==
[2019-02-05 19:36] VITALS: PULSE 110; BMI 31.3
[2019-02-05 19:46] VITALS: RESP 18
--- NOTE | 2019-02-05 20:15 | ED PDOC ---
Arrival/HPI - General Chief Complaint: Lower Extremity Problem/Injury Time Seen by Provider: 02/05/19 19:37 Historian: Patient - History of Present Illness Narrative History of Present Illness (Text): 02/05/19 20:15 68 year old male, whose past medical history includes arthritis, Meniere's disease, HTN, HLD, chronic back pain, degenerative joint disease, gastritis, anxiety, chronic back pain, presents to the emergency department complaining of left-sided "butt pain" for a year. Patient has been seen numerous times in the Emergency room for similar complaints. Patient has a known mesenteric adenitis and is due for an outpatient biopsy. Patient is current on oxycodone for pain. Patient denies any fever, chills, chest pain, shortness of breath, nausea, vomiting, diarrhea, urinary symptoms, back pain, neck pain, headache, dizziness, numbness, or any other complaints. PMD: Dr. Ruiz Time/Duration: Other (1 year) Symptom Onset: Gradual Symptom Course: Unchanged Activities at Onset: Light Context: Home Past Medical History - Provider Review Nursing Documentation Reviewed: Yes - Past History Past History: No Previous - Infectious Disease Hx of Infectious Diseases: None - Tetanus Immunization Tetanus Immunization: Unknown - Past Medical History Past Medical History: Non-Contributing - Cardiac Hx Cardiac Disorders: Yes Hx IN: Yes Hx Hypertension: Yes - Pulmonary Hx Respiratory Disorders: Yes Hx Pneumonia: Yes (11/10/14) - Neurological Hx Neurological Disorder: No - HEENT Hx HEENT Disorder: Yes (WEARS RX GLASSES) Hx Cataracts: Yes - Renal Hx Renal Disorder: Yes Other/Comment: hepatic cyst - Endocrine/Metabolic Hx Endocrine Disorders: No - Hematological/Oncological Hx Blood Disorders: No - Integumentary Hx Dermatological Disorder: No - Musculoskeletal/Rheumatological Hx Musculoskeletal Disorders: Yes Hx Arthritis: Yes Hx Back Pain: Yes Hx Degenerative Joint Disease: Yes Hx Falls: Yes Hx Rhabdomyolysis: Yes Hx Unsteady Gait: Yes (uses cane) Other/Comment: hiatal hernia, lumbar disc disease, lumbar radiculopathy - Gastrointestinal Hx Gastrointestinal Disorders: Yes Hx Diverticulitis: Yes Hx Gastritis: Yes Hx Hemorrhoids: Yes - Genitourinary/Gynecological Hx Genitourinary Disorders: No - Psychiatric Hx Psychophysiologic Disorder: Yes Hx Anxiety: Yes Hx Depression: Yes Hx Substance Use: No - Past Surgical History Past Surgical History: No Previous - Surgical History Hx Cardiac Catheterization: Yes (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%) Hx Open Heart Surgery: Yes - Anesthesia Hx Anesthesia: Yes Hx Anesthesia Reactions: No Hx Malignant Hyperthermia: No - Suicidal Assessment Feels Threatened In Home Enviroment: No Family/Social History - Physician Review Nursing Documentation Reviewed: Yes Family/Social History: No Known Family HX Smoking Status: Never Smoked Hx Alcohol Use: No Hx Substance Use: No Hx Substance Use Treatment: No Allergies/Home Meds Allergies/Adverse Reactions: Allergies Penicillins Adverse Reaction (Verified 02/05/19 19:45) ANAPHYLAXIS Home Medications: Home Meds Medication Instructions Recorded Confirmed Clonazepam [Klonopin] 0.5 mg PO BID PRN 04/16/14 01/18/19 Lyrica 75 mg PO BID 04/17/15 01/21/19 Amiodarone [Cordarone] 200 mg PO DAILY 08/01/15 01/18/19 Valsartan/Hydrochlorothiazide 1 tab PO DAILY 04/02/16 01/18/19 [Diovan Hct 320-25 mg Tablet] Atorvastatin [Lipitor] 1 tab PO HS 04/03/18 01/18/19 Ergocalciferol [Drisdol 50,000 1 cap PO Q7D 04/03/18 01/18/19 Intl Units Cap] Metoprolol Tartrate [Lopressor] 1 tab PO BID 04/03/18 01/21/19 Omeprazole 1 tab PO DAILY 04/03/18 01/18/19 Topiramate [Topamax] 1 tab PO BID 04/03/18 01/18/19 cloNIDine 0.3 mg/24 hr 1 patch TOP Q7D 04/03/18 01/18/19 [catapres-TTS3 0.3 mg/24 hr] Review of Systems - Physician Review All systems were reviewed & negative as marked: Yes - Review of Systems Constitutional: absent: Fevers, Other (chills) Respiratory: absent: SOB Cardiovascular: absent: Chest Pain Gastrointestinal: absent: Diarrhea, Nausea, Vomiting Genitourinary Male: absent: Dysuria, Frequency, Hematuria Musculoskeletal: Other (left-sided "butt pain"). absent: Back Pain, Neck Pain Neurological: absent: Headache, Dizziness Physical Exam Vital Signs Reviewed: Yes Vital Signs Temp Pulse Resp BP Pulse Ox 04/17/19 19:45 99.1 F 58 L 18 162/71 H 96 Temperature: Afebrile Blood Pressure: Hypertensive Pulse: Regular Respiratory Rate: Normal Appearance: Positive for: Well-Appearing, Non-Toxic, Comfortable Pain Distress: None Mental Status: Positive for: Alert and Oriented X 3 - Systems Exam Head: Present: Atraumatic, Normocephalic Pupils: Present: PERRL Extroacular Muscles: Present: EOMI Conjunctiva: Present: Normal Mouth: Present: Moist Mucous Membranes Neck: Present: Normal Range of Motion Respiratory/Chest: Present: Clear to Auscultation, Good Air Exchange. No: Respiratory Distress, Accessory Muscle Use Cardiovascular: Present: Regular Rate and Rhythm, Normal S1, S2. No: Murmurs Abdomen: No: Tenderness, Distention, Peritoneal Signs Back: Present: Other (left-sided paralumabr tenderness) Upper Extremity: Present: Normal Inspection. No: Cyanosis, Edema Lower Extremity: Present: Normal Inspection. No: Edema Neurological: Present: GCS=15, Speech Normal Skin: Present: Warm, Dry, Normal Color. No: Rashes Psychiatric: Present: Alert, Oriented x 3, Normal Insight, Normal Concentration Medical Decision Making ED Course and Treatment: 02/05/19 20:15 Impression: 68 year old male presents complaining of left-sided "butt pain" for the past year. Plan: -- Toradol -- Reassess and disposition Prior Visits: Notes and results from previous visits were reviewed. Progress Notes: 02/06/19 01:08 exam suggestive of sciatica. chronic complaints no clincial concern for cauda equina. stable for cont outpt mangment. - Medication Orders Current Medication Orders: Discontinued Medications Ketorolac Tromethamine (Toradol) 30 mg IM STAT STA Stop: 02/05/19 20:03 - Scribe Statement The provider has reviewed the documentation as recorded by the Thaddeus Iverson Provider Scribe Attestation: All medical record entries made by the Scribe were at my direction and personally dictated by me. I have reviewed the chart and agree that the record accurately reflects my personal performance of the history, physical exam, medical decision making, and the department course for this patient. I have also personally directed, reviewed, and agree with the discharge instructions and disposition. Disposition/Present on Arrival - Present on Arrival Any Indicators Present on Arrival: No History of DVT/PE: No History of Uncontrolled Diabetes: No Urinary Catheter: No History of Decub. Ulcer: No History Surgical Site Infection Following: None - Disposition Have Diagnosis and Disposition been Completed?: Yes Diagnosis: Sciatica, left side Disposition: HOME/ ROUTINE Disposition Time: 23:00 Condition: STABLE Discharge Instructions (ExitCare): Sciatica (DC) Additional Instructions: return to er with worsening. Prescriptions: Naproxen 500 mg PO BID PRN #14 tablet PRN Reason: Pain, Mild (1-3) Referrals: Yogesh Starkey MD [Staff Provider] - Follow up with primary Forms: [facility] (Albanian)
[2019-02-06 00:59] VITALS: BP 158/70; PULSE 60; TEMP 98.5; O2SAT 98
== END 2019-02-06 00:59 | disposition home or self-care (01) ==
LOC: ED 19:36
DX: M54.32 Sciatica, left side (principal)
CPT/HCPCS: 96372; 99283; J1885

== ENCOUNTER 2019-02-06 18:11 | Emergency (ER) | payer MEDICARE ==
[2019-02-06 18:11] VITALS: PULSE 110
[2019-02-06 18:17] VITALS: BMI 30.4
[2019-02-06 18:34] VITALS: RESP 18; TEMP 98
--- NOTE | 2019-02-06 19:19 | ED PDOC ---
Arrival/HPI - General Chief Complaint: Lower Extremity Problem/Injury Time Seen by Provider: 02/06/19 18:38 Historian: Patient - History of Present Illness Narrative History of Present Illness (Text): 02/06/19 19:19 68 year old male, with past medical history includes arthritis, Meniere's disease, HTN, HLD, chronic back pain, degenerative joint disease, gastritis, anxiety, chronic back pain, presents to the emergency department complaining of pain to the L buttock proximal to the anus, he states that the area feels swollen and seems red. Patient was seen yesterday in this emergency room for similar complaints. Otherwise, the patient denies any fever, chills, chest pain, shortness of breath, nausea, vomiting, diarrhea, abdominal pain, urinary symptoms, back pain, neck pain, headache, dizziness, numbness, weakness to the legs or any other complaints. PMD: Dr. Ruiz Past Medical History - Past History Past History: No Previous - Infectious Disease Hx of Infectious Diseases: None - Tetanus Immunization Tetanus Immunization: Unknown - Past Medical History Past Medical History: Non-Contributing - Cardiac Hx Cardiac Disorders: Yes Hx [place]: Yes Hx Hypertension: Yes - Pulmonary Hx Respiratory Disorders: Yes Hx Pneumonia: Yes (11/10/14) - Neurological Hx Neurological Disorder: No - HEENT Hx HEENT Disorder: Yes (WEARS RX GLASSES) Hx Cataracts: Yes - Renal Hx Renal Disorder: Yes Other/Comment: hepatic cyst - Endocrine/Metabolic Hx Endocrine Disorders: No - Hematological/Oncological Hx Blood Disorders: No - Integumentary Hx Dermatological Disorder: No - Musculoskeletal/Rheumatological Hx Musculoskeletal Disorders: Yes Hx Arthritis: Yes Hx Back Pain: Yes Hx Degenerative Joint Disease: Yes Hx Falls: Yes Hx Rhabdomyolysis: Yes Hx Unsteady Gait: Yes (uses cane) Other/Comment: hiatal hernia, lumbar disc disease, lumbar radiculopathy - Gastrointestinal Hx Gastrointestinal Disorders: Yes Hx Diverticulitis: Yes Hx Gastritis: Yes Hx Hemorrhoids: Yes - Genitourinary/Gynecological Hx Genitourinary Disorders: No - Psychiatric Hx Psychophysiologic Disorder: Yes Hx Anxiety: Yes Hx Depression: Yes Hx Substance Use: No - Past Surgical History Past Surgical History: No Previous - Surgical History Hx Cardiac Catheterization: Yes (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%) Hx Open Heart Surgery: Yes - Anesthesia Hx Anesthesia: Yes Hx Anesthesia Reactions: No Hx Malignant Hyperthermia: No - Suicidal Assessment Feels Threatened In Home Enviroment: No Family/Social History Family/Social History: No Known Family HX Smoking Status: Never Smoked Hx Alcohol Use: No Hx Substance Use: No Hx Substance Use Treatment: No Allergies/Home Meds Allergies/Adverse Reactions: Allergies Penicillins Adverse Reaction (Verified 02/06/19 18:17) ANAPHYLAXIS Home Medications: Home Meds Medication Instructions Recorded Confirmed Clonazepam [Klonopin] 0.5 mg PO BID PRN 04/16/14 01/18/19 Lyrica 75 mg PO BID 04/17/15 01/21/19 Amiodarone [Cordarone] 200 mg PO DAILY 08/01/15 01/18/19 Valsartan/Hydrochlorothiazide 1 tab PO DAILY 04/02/16 01/18/19 [Diovan Hct 320-25 mg Tablet] Atorvastatin [Lipitor] 1 tab PO HS 04/03/18 01/18/19 Ergocalciferol [Drisdol 50,000 1 cap PO Q7D 04/03/18 01/18/19 Intl Units Cap] Metoprolol Tartrate [Lopressor] 1 tab PO BID 04/03/18 01/21/19 Omeprazole 1 tab PO DAILY 04/03/18 01/18/19 Topiramate [Topamax] 1 tab PO BID 04/03/18 01/18/19 cloNIDine 0.3 mg/24 hr 1 patch TOP Q7D 04/03/18 01/18/19 [catapres-TTS3 0.3 mg/24 hr] Review of Systems - Review of Systems Constitutional: absent: Fatigue, Fevers Respiratory: absent: SOB, Cough Cardiovascular: absent: Chest Pain, Palpitations Gastrointestinal: Constipation (+h/o constipation in the past). absent: Abdominal Pain, Diarrhea, Nausea, Vomiting Genitourinary Male: absent: Dysuria, Frequency Musculoskeletal: Arthralgias, Other (pain in the L buttock). absent: Back Pain, Neck Pain Skin: absent: Rash, Pruritis, Skin Lesions Neurological: absent: Headache, Dizziness Physical Exam Vital Signs Temp Pulse Resp BP Pulse Ox 02/06/19 18:11 98 F 66 18 135/79 95 Temperature: Afebrile Blood Pressure: Normal Pulse: Regular Respiratory Rate: Normal Appearance: Positive for: Well-Appearing, Non-Toxic, Comfortable Pain Distress: None Mental Status: Positive for: Alert and Oriented X 3 - Systems Exam Head: Present: Atraumatic, Normocephalic Mouth: Present: Moist Mucous Membranes Neck: Present: Normal Range of Motion Respiratory/Chest: Present: Clear to Auscultation, Good Air Exchange. No: Respiratory Distress Cardiovascular: Present: Regular Rate and Rhythm, Normal S1, S2. 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 No: Occult Blood, Rectal Tenderness, Gross Blood, Melena, Hemorrhoids, Fissures, Nodule/Mass/Lesions Upper Extremity: Present: Normal Inspection, Normal ROM. No: Edema Lower Extremity: Present: Normal Inspection, Normal ROM. No: Edema Neurological: Present: GCS=15, CN II-XII Intact, Speech Normal, Motor Func Grossly Intact, Normal Sensory Function, Gait Normal Skin: Present: Warm, Dry, Normal Color. No: Rashes Psychiatric: Present: Alert, Oriented x 3, Normal Insight, Normal Concentration Medical Decision Making ED Course and Treatment: 02/06/19 19:16 Previous medical records reviewed, patient was seen and evaluated in this emergency room yesterday for left buttock pain. Case discussed with Dr. Ruiz, agrees with plan for outpatient follow-up to his office. Advised to follow up with primary care physician in 1-2 days without fail. Return to the emergency room at any time for any new or worsening symptoms. Patient states he fully agrees with and understands discharge instructions. States that he agrees with the plan and disposition. Verbalized and repeated discharge instructions and plan. I have given the patient opportunity to ask any additional questions. - PA / COUNTER PERSON / Resident Statement MD/DO has reviewed & agrees with the documentation as recorded. Disposition/Present on Arrival - Present on Arrival Any Indicators Present on Arrival: No History of DVT/PE: No History of Uncontrolled Diabetes: No Urinary Catheter: No History of Decub. Ulcer: No History Surgical Site Infection Following: None - Disposition Have Diagnosis and Disposition been Completed?: Yes Diagnosis: Pain in left buttock Disposition: HOME/ ROUTINE Disposition Time: 19:15 Patient Plan: Discharge Condition: STABLE Discharge Instructions (ExitCare): Muscle and Bone Pain (DC) Additional Instructions: Thank you for letting us take care of you today. You were treated for left buttock pain. The emergency medical care you received today was directed at your acute symptoms. Return to the Emergency Department if your symptoms worsen, do not improve, or if you have any other problems. Please contact your doctor in 2 days for re-evaluation and follow up. Bring any paperwork you were given at discharge with you along with any medications you are taking to your follow up visit. Our treatment cannot replace ongoing medical care by a primary care provider (PCP) outside of the emergency department. Thank you for allowing the [facility] team to be part of your care today. Referrals: Thom Ruiz, DO [Primary Care Provider] - Follow up with primary
[2019-02-06 19:49] VITALS: BP 116/67; PULSE 58; O2SAT 98
== END 2019-02-06 19:56 | disposition home or self-care (01) ==
LOC: ED 18:11
DX: M79.10 Myalgia, unspecified site (principal); E78.5 Hyperlipidemia, unspecified; I10 Essential (primary) hypertension; M19.90 Unspecified osteoarthritis, unspecified site; H81.09 Meniere's disease, unspecified ear

== ENCOUNTER 2019-02-07 20:22 | Emergency (ER) | payer MEDICARE ==
[2019-02-07 20:23] VITALS: PULSE 110; BMI 30.4
[2019-02-07 21:10] VITALS: BP 138/74; PULSE 63; RESP 18; TEMP 98.6; O2SAT 95
--- NOTE | 2019-02-07 21:11 | ED PDOC ---
Arrival/HPI - General Chief Complaint: Pain, Chronic Time Seen by Provider: 02/07/19 20:45 Historian: Patient - History of Present Illness Narrative History of Present Illness (Text): 02/07/19 21:09 68 year old male, with past medical history of CAD, hypertension, chronic back pain, and anxiety, presents to emergency department with complaints of chronic pain to left gluteal region for the past several weeks. Patient has been seen in ER frequently for similar complaint. Patient is anxious appearing at bedside and was admitted and seen by GI earlier this month. Patient denies any fevers, chills, headache, dizziness, chest pain, shortness of breath, cough, abdominal pain, nausea, vomiting, diarrhea, neck pain, or any other complaints. Time/Duration: > week Symptom Onset: Gradual Symptom Course: Unchanged Activities at Onset: Light Context: Home Past Medical History - Provider Review Nursing Documentation Reviewed: Yes - Past History Past History: No Previous - Infectious Disease Hx of Infectious Diseases: None - Tetanus Immunization Tetanus Immunization: Unknown - Past Medical History Past Medical History: Non-Contributing - Cardiac Hx Cardiac Disorders: Yes Hx RI: Yes Hx Hypertension: Yes - Pulmonary Hx Respiratory Disorders: Yes Hx Pneumonia: Yes (11/10/14) - Neurological Hx Neurological Disorder: No - HEENT Hx HEENT Disorder: Yes (WEARS RX GLASSES) Hx Cataracts: Yes - Renal Hx Renal Disorder: Yes Other/Comment: hepatic cyst - Endocrine/Metabolic Hx Endocrine Disorders: No - Hematological/Oncological Hx Blood Disorders: No - Integumentary Hx Dermatological Disorder: No - Musculoskeletal/Rheumatological Hx Musculoskeletal Disorders: Yes Hx Arthritis: Yes Hx Back Pain: Yes Hx Degenerative Joint Disease: Yes Hx Falls: Yes Hx Rhabdomyolysis: Yes Hx Unsteady Gait: Yes (uses cane) Other/Comment: hiatal hernia, lumbar disc disease, lumbar radiculopathy - Gastrointestinal Hx Gastrointestinal Disorders: Yes Hx Diverticulitis: Yes Hx Gastritis: Yes Hx Hemorrhoids: Yes - Genitourinary/Gynecological Hx Genitourinary Disorders: No - Psychiatric Hx Psychophysiologic Disorder: Yes Hx Anxiety: Yes Hx Depression: Yes Hx Substance Use: No - Past Surgical History Past Surgical History: No Previous - Surgical History Hx Cardiac Catheterization: Yes (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%) Hx Open Heart Surgery: Yes - Anesthesia Hx Anesthesia: Yes Hx Anesthesia Reactions: No Hx Malignant Hyperthermia: No - Suicidal Assessment Feels Threatened In Home Enviroment: No Family/Social History - Physician Review Nursing Documentation Reviewed: Yes Family/Social History: Unknown Family HX Smoking Status: Never Smoked Hx Alcohol Use: No Hx Substance Use: No Hx Substance Use Treatment: No Allergies/Home Meds Allergies/Adverse Reactions: Allergies Penicillins Adverse Reaction (Verified 02/07/19 20:42) ANAPHYLAXIS Home Medications: Home Meds Medication Instructions Recorded Confirmed Clonazepam [Klonopin] 0.5 mg PO BID PRN 04/16/14 01/18/19 Lyrica 75 mg PO BID 04/17/15 01/21/19 Amiodarone [Cordarone] 200 mg PO DAILY 08/01/15 01/18/19 Valsartan/Hydrochlorothiazide 1 tab PO DAILY 04/02/16 01/18/19 [Diovan Hct 320-25 mg Tablet] Atorvastatin [Lipitor] 1 tab PO HS 04/03/18 01/18/19 Ergocalciferol [Drisdol 50,000 1 cap PO Q7D 04/03/18 01/18/19 Intl Units Cap] Metoprolol Tartrate [Lopressor] 1 tab PO BID 04/03/18 01/21/19 Omeprazole 1 tab PO DAILY 04/03/18 01/18/19 Topiramate [Topamax] 1 tab PO BID 04/03/18 01/18/19 cloNIDine 0.3 mg/24 hr 1 patch TOP Q7D 04/03/18 01/18/19 [catapres-TTS3 0.3 mg/24 hr] Review of Systems - Physician Review All systems were reviewed & negative as marked: Yes - Review of Systems Constitutional: absent: Fevers Respiratory: absent: SOB, Cough Cardiovascular: absent: Chest Pain Gastrointestinal: absent: Abdominal Pain, Diarrhea, Nausea, Vomiting Genitourinary Male: absent: Urinary Output Changes Musculoskeletal: Other (left gluteal pain). absent: Back Pain, Neck Pain Skin: absent: Rash Neurological: absent: Headache, Dizziness Physical Exam Vital Signs Reviewed: Yes Temperature: Afebrile Blood Pressure: Normal Pulse: Regular Respiratory Rate: Normal Appearance: Positive for: Well-Appearing, Non-Toxic, Comfortable Pain Distress: None Mental Status: Positive for: Alert and Oriented X 3 - Systems Exam Head: Present: Atraumatic, Normocephalic Pupils: Present: PERRL Extroacular Muscles: Present: EOMI Conjunctiva: Present: Normal Mouth: Present: Moist Mucous Membranes Neck: Present: Normal Range of Motion Respiratory/Chest: Present: Clear to Auscultation, Good Air Exchange. No: Respiratory Distress, Accessory Muscle Use Cardiovascular: Present: Regular Rate and Rhythm, Normal S1, S2. No: Murmurs Abdomen: No: Tenderness, Distention, Peritoneal Signs Back: Present: Other (no swelling, errythema, tenderness, or fluctuates to left gluteal region ) Upper Extremity: Present: Normal Inspection. No: Cyanosis, Edema Lower Extremity: Present: Normal Inspection. No: Edema Neurological: Present: GCS=15, CN II-XII Intact, Speech Normal Skin: Present: Warm, Dry, Normal Color. No: Rashes Psychiatric: Present: Alert, Oriented x 3, Normal Insight, Normal Concentration, Anxious Medical Decision Making ED Course and Treatment: 02/07/19 21:11 Impression: 68 year old male presents to emergency department for pain to left gluteal region for the past several weeks. Plan: -- Toradol -- Reassess and disposition Prior Visits: Notes and results from previous visits were reviewed. Progress Notes: 02/07/19 23:27 chronic pain no swelling fluctuance exam benight neuro intact. advise outpt fu. no emergent issue. - Medication Orders Current Medication Orders: Discontinued Medications Ketorolac Tromethamine (Toradol) 30 mg IM STAT STA Stop: 02/07/19 20:58 - Scribe Statement The provider has reviewed the documentation as recorded by the Scribe Jaguar Thrasher All medical record entries made by the Scribe were at my direction and personally dictated by me. I have reviewed the chart and agree that the record accurately reflects my personal performance of the history, physical exam, medical decision making, and the department course for this patient. I have also personally directed, reviewed, and agree with the discharge instructions and disposition. Disposition/Present on Arrival - Present on Arrival Any Indicators Present on Arrival: No History of DVT/PE: No History of Uncontrolled Diabetes: No Urinary Catheter: No History of Decub. Ulcer: No History Surgical Site Infection Following: None - Disposition Have Diagnosis and Disposition been Completed?: Yes Diagnosis: Chronic pain Disposition: HOME/ ROUTINE Disposition Time: 21:00 Condition: STABLE Discharge Instructions (ExitCare): Chronic Pain (DC) Additional Instructions: return to er with worsening. Referrals: Abundio García MD [Staff Provider] - Follow up with primary Forms: [employer] (Macedonian)
== END 2019-02-07 21:50 | disposition home or self-care (01) ==
LOC: ED 20:22
DX: G89.29 Other chronic pain (principal); I10 Essential (primary) hypertension; I25.10 Atherosclerotic heart disease of native coronary artery without angina pectoris; I25.2 Old myocardial infarction
CPT/HCPCS: 96372; 99283; J1885

== ENCOUNTER 2019-02-09 14:03 | Emergency (ER) | payer MEDICARE ==
[2019-02-09 14:04] VITALS: PULSE 110; BMI 30.4
[2019-02-09 14:12] VITALS: RESP 18; O2SAT 98
--- NOTE | 2019-02-09 14:40 | ED PDOC ---
Arrival/HPI - General Chief Complaint: Male Genitourinary Time Seen by Provider: 02/09/19 14:38 Historian: Patient - History of Present Illness Narrative History of Present Illness (Text): 68 year old male, with PMH of CAD (s/p stents, last 12/2018), hypertension, chronic back pain, and anxiety, presents to emergency department c/o chronic buttock pain x 8 months. States his left gluteal region feels "spongy" because he sits too long during the day and no longer participates in physical therapy. Admits that he is lonely at home because his brother is in rehab. Patient is seen in ER frequently for the same complaint, last 3 days ago. Patient was admitted to the hospital last month for these symptoms and evaluated by his primary, GI, surgery, and cardiology. States he is compliant with all of his home medications. Has not taken any medication for pain. Pt ambulated into the ED without difficulty. Denies fevers, chills, headache, dizziness, chest pain, SOB, cough, abdominal pain, stool changes, appetite changes, nausea, vomiting, diarrhea, neck pain, numbness, weakness, paresthesias, saddle anesthesia, bowel/bladder incontinence, or any other complaints. PMD: Dr. Ruiz Past Medical History - Provider Review Nursing Documentation Reviewed: Yes - Past History Past History: No Previous - Infectious Disease Hx of Infectious Diseases: None - Tetanus Immunization Tetanus Immunization: Unknown - Past Medical History Past Medical History: Non-Contributing - Cardiac Hx Cardiac Disorders: Yes Hx CA: Yes Hx Hypertension: Yes - Pulmonary Hx Respiratory Disorders: Yes Hx Pneumonia: Yes (11/10/14) - Neurological Hx Neurological Disorder: No - HEENT Hx HEENT Disorder: Yes (WEARS RX GLASSES) Hx Cataracts: Yes - Renal Hx Renal Disorder: Yes Other/Comment: hepatic cyst - Endocrine/Metabolic Hx Endocrine Disorders: No - Hematological/Oncological Hx Blood Disorders: No - Integumentary Hx Dermatological Disorder: No - Musculoskeletal/Rheumatological Hx Musculoskeletal Disorders: Yes Hx Arthritis: Yes Hx Back Pain: Yes Hx Degenerative Joint Disease: Yes Hx Falls: Yes Hx Rhabdomyolysis: Yes Hx Unsteady Gait: Yes (uses cane) Other/Comment: hiatal hernia, lumbar disc disease, lumbar radiculopathy - Gastrointestinal Hx Gastrointestinal Disorders: Yes Hx Diverticulitis: Yes Hx Gastritis: Yes Hx Hemorrhoids: Yes - Genitourinary/Gynecological Hx Genitourinary Disorders: No - Psychiatric Hx Psychophysiologic Disorder: Yes Hx Anxiety: Yes Hx Depression: Yes Hx Substance Use: No - Past Surgical History Past Surgical History: No Previous - Surgical History Hx Cardiac Catheterization: Yes (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%) Hx Open Heart Surgery: Yes - Anesthesia Hx Anesthesia: Yes Hx Anesthesia Reactions: No Hx Malignant Hyperthermia: No - Suicidal Assessment Feels Threatened In Home Enviroment: No Family/Social History - Physician Review Nursing Documentation Reviewed: Yes Family/Social History: No Known Family HX Smoking Status: Never Smoked Hx Alcohol Use: No Hx Substance Use: No Hx Substance Use Treatment: No Allergies/Home Meds Allergies/Adverse Reactions: Allergies Penicillins Adverse Reaction (Verified 02/07/19 20:42) ANAPHYLAXIS Home Medications: Home Meds Medication Instructions Recorded Confirmed Clonazepam [Klonopin] 0.5 mg PO BID PRN 04/16/14 02/09/19 Lyrica 75 mg PO BID 04/17/15 02/09/19 Amiodarone [Cordarone] 200 mg PO DAILY 08/01/15 02/09/19 Valsartan/Hydrochlorothiazide 1 tab PO DAILY 04/02/16 02/09/19 [Diovan Hct 320-25 mg Tablet] Atorvastatin [Lipitor] 1 tab PO HS 04/03/18 02/09/19 Ergocalciferol [Drisdol 50,000 1 cap PO Q7D 04/03/18 02/09/19 Intl Units Cap] Metoprolol Tartrate [Lopressor] 1 tab PO BID 04/03/18 02/09/19 Omeprazole 1 tab PO DAILY 04/03/18 02/09/19 Topiramate [Topamax] 1 tab PO BID 04/03/18 02/09/19 cloNIDine 0.3 mg/24 hr 1 patch TOP Q7D 04/03/18 02/09/19 [catapres-TTS3 0.3 mg/24 hr] Review of Systems - Review of Systems Constitutional: Normal. absent: Fevers Eyes: Normal. absent: Vision Changes, Eye Pain ENT: Normal. absent: Sore Throat, Sinus Congestion Respiratory: Normal. absent: SOB Cardiovascular: Normal. absent: Chest Pain, Palpitations, Syncope Gastrointestinal: absent: Abdominal Pain, Stool Changes, Constipation, Diarrhea, Nausea, Vomiting, Appetite Changes, Other Genitourinary Male: Normal. absent: Dysuria, Frequency, Hematuria, Urinary Output Changes Musculoskeletal: Back Pain, Other (left leg buttock and leg pain and "sponginess") Skin: Normal. absent: Rash, Skin Lesions, Cellulitis Neurological: Normal. absent: Headache, Dizziness Endocrine: Normal. absent: Diaphoresis Psychiatric: Anxiety. absent: Suicidal Ideation Physical Exam Vital Signs Reviewed: Yes Vital Signs Temp Pulse Resp Pulse Ox 02/09/19 14:08 98.1 F 72 18 98 Temperature: Afebrile Blood Pressure: Normal Pulse: Regular Respiratory Rate: Normal Appearance: Positive for: Well-Appearing, Non-Toxic, Comfortable, Unkept Pain Distress: None Mental Status: Positive for: Alert and Oriented X 3 - Systems Exam Head: Present: Atraumatic, Normocephalic Pupils: Present: PERRL Extroacular Muscles: Present: EOMI Conjunctiva: Present: Normal Mouth: Present: Moist Mucous Membranes Neck: Present: Normal Range of Motion. No: Meningeal Signs Respiratory/Chest: Present: Clear to Auscultation, Good Air Exchange. No: Respiratory Distress, Accessory Muscle Use Cardiovascular: Present: Regular Rate and Rhythm, Normal S1, S2, Peripheal Pulses Present Abdomen: Present: Normal Bowel Sounds. No: Tenderness, Distention, Peritoneal Signs, Rebound, Guarding Rectal: Present: Normal Rectal Tone. No: Occult Blood, Rectal Tenderness, Gross Blood, Melena, Hemorrhoids, Fissures, Nodule/Mass/Lesions Genitourinary Male: Present: Normal External Genitalia. No: Penile Discharge, Testicle Tenderness, Penile Swelling, Erythema, Testicle Swelling Back: Present: Normal Inspection, Paraspinal Tenderness (left lumbar ). No: CVA Tenderness Upper Extremity: Present: Normal Inspection, Normal ROM, NORMAL PULSES, Neurovascularly Intact, Capillary Refill < 2s. No: Cyanosis, Edema, Temperature Abnormalties Lower Extremity: Present: Normal Inspection, NORMAL PULSES, Normal ROM, Tenderness (posterior thigh, left), Neurovascularly Intact, Capillary Refill < 2 s. No: Edema, CALF TENDERNESS, Temperature Abnormalties Neurological: Present: GCS=15, Speech Normal, Motor Func Grossly Intact, Normal Sensory Function, Gait Normal (patient ambulated with cane without difficulty) Skin: Present: Warm, Dry, Normal Color. No: Rashes, Induration Psychiatric: Present: Alert, Oriented x 3, Normal Insight, Normal Concentration, Anxious Medical Decision Making ED Course and Treatment: 02/09/19 16:01 Initial Plan: * Toradol * Lidoderm patch * Reassess and Disposition On exam, patient is unkempt but well appearing. No weakness, sensory loss, skin erythema/tenderness/warmth, occult blood in stool, palpable rectal masses, loss of rectal tone, genital lesions, abdominal tenderness/distension. Denies bowel/bladder incontinence, saddle anesthesia, stool changes, numbness, weakness, paresthesias, abdominal pain, SOB, chest pain. Pt able to ambulate around ED with cane without difficulty or complaints of pain. Pt has been seen here multiple times with similar complaints. Recently admitted approximately under his PMD, Dr. Ruiz where he was evaluated by GI, surgery, and cardiology. Pt is taking is medications as prescribed. Advised PMD, orthopedic, and GI followup. Diagnostic testing results and plan of care discussed with patient. Strict instructions given regarding importance of followup, and signs/symptoms to return to ER including bowel/bladder incontinence, saddle anesthesia, skin adriel nges, fever, chest pain, or any other new/worsening symptoms. Pt verbalized understanding of discussion. Patient is A&Ox3, ambulating with steady gait, with vital signs stable for discharge. Disposition/Present on Arrival - Present on Arrival Any Indicators Present on Arrival: No History of DVT/PE: No History of Uncontrolled Diabetes: No Urinary Catheter: No History of Decub. Ulcer: No History Surgical Site Infection Following: None - Disposition Have Diagnosis and Disposition been Completed?: Yes Diagnosis: Rectal pain, chronic Disposition: HOME/ ROUTINE Disposition Time: 15:30 Patient Plan: Discharge Condition: STABLE Discharge Instructions (ExitCare): Chronic Pain (DC), Acute Abdomen (Belly Pain), Adult (DC), Radiculopathy (DC) Additional Instructions: Followup with orthopedic within 2 days Followup with primary within 2 days Continue home medications as prescribed Return to ER with any new/worsening symptoms Referrals: Thom Ruiz DO [Primary Care Provider] - Follow up with primary Octavio Oliver DO [Staff Provider] - Follow up with primary Forms: [employer] (Ku[place]i), WORK NOTE
[2019-02-09] MEDS ORDERED: Lidocaine 5% Patch TD STA (14:42)
[2019-02-09 15:53] VITALS: BP 154/77; PULSE 86; TEMP 98.7
== END 2019-02-09 16:04 | disposition home or self-care (01) ==
LOC: ED 14:03
DX: G89.29 Other chronic pain (principal); K62.89 Other specified diseases of anus and rectum; I10 Essential (primary) hypertension; I25.10 Atherosclerotic heart disease of native coronary artery without angina pectoris; I25.2 Old myocardial infarction

== ENCOUNTER 2019-02-11 16:17 | Emergency (ER) | payer MEDICARE ==
[2019-02-11 16:19] VITALS: PULSE 110
[2019-02-11 16:35] VITALS: BMI 31.1
--- NOTE | 2019-02-11 17:07 | ED PDOC ---
Arrival/HPI - General Chief Complaint: Pain, Chronic Time Seen by Provider: 02/11/19 16:57 - History of Present Illness Narrative History of Present Illness (Text): 02/11/19 17:05 68 yo male, presents with chronic pain to his gluteal region x 8 mo. worse over last 2 mo. daily visits to er. see and admitted recently cleard by gi. no new symptoms. saw pmd numerous times. Past Medical History - Past History Past History: No Previous - Infectious Disease Hx of Infectious Diseases: None - Tetanus Immunization Tetanus Immunization: Unknown - Past Medical History Past Medical History: Non-Contributing - Cardiac Hx Cardiac Disorders: Yes Hx [place]: Yes Hx Hypertension: Yes - Pulmonary Hx Respiratory Disorders: Yes Hx Pneumonia: Yes (11/10/14) - Neurological Hx Neurological Disorder: No - HEENT Hx HEENT Disorder: Yes (WEARS RX GLASSES) Hx Cataracts: Yes - Renal Hx Renal Disorder: Yes Other/Comment: hepatic cyst - Endocrine/Metabolic Hx Endocrine Disorders: No - Hematological/Oncological Hx Blood Disorders: No - Integumentary Hx Dermatological Disorder: No - Musculoskeletal/Rheumatological Hx Musculoskeletal Disorders: Yes Hx Arthritis: Yes Hx Back Pain: Yes Hx Degenerative Joint Disease: Yes Hx Falls: Yes Hx Rhabdomyolysis: Yes Hx Unsteady Gait: Yes (uses cane) Other/Comment: hiatal hernia, lumbar disc disease, lumbar radiculopathy - Gastrointestinal Hx Gastrointestinal Disorders: Yes Hx Diverticulitis: Yes Hx Gastritis: Yes Hx Hemorrhoids: Yes - Genitourinary/Gynecological Hx Genitourinary Disorders: No - Psychiatric Hx Psychophysiologic Disorder: Yes Hx Anxiety: Yes Hx Depression: Yes Hx Substance Use: No - Past Surgical History Past Surgical History: No Previous - Surgical History Hx Cardiac Catheterization: Yes (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%) Hx Open Heart Surgery: Yes - Anesthesia Hx Anesthesia: Yes Hx Anesthesia Reactions: No Hx Malignant Hyperthermia: No - Suicidal Assessment Feels Threatened In Home Enviroment: No Family/Social History Family/Social History: Unknown Family HX Smoking Status: Never Smoked Hx Alcohol Use: No Hx Substance Use: No Hx Substance Use Treatment: No Allergies/Home Meds Allergies/Adverse Reactions: Allergies Penicillins Adverse Reaction (Verified 02/11/19 16:35) ANAPHYLAXIS Home Medications: Home Meds Medication Instructions Recorded Confirmed Clonazepam [Klonopin] 0.5 mg PO BID PRN 04/16/14 02/09/19 Lyrica 75 mg PO BID 04/17/15 02/09/19 Amiodarone [Cordarone] 200 mg PO DAILY 08/01/15 02/09/19 Valsartan/Hydrochlorothiazide 1 tab PO DAILY 04/02/16 02/09/19 [Diovan Hct 320-25 mg Tablet] Atorvastatin [Lipitor] 1 tab PO HS 04/03/18 02/09/19 Ergocalciferol [Drisdol 50,000 1 cap PO Q7D 04/03/18 02/09/19 Intl Units Cap] Metoprolol Tartrate [Lopressor] 1 tab PO BID 04/03/18 02/09/19 Omeprazole 1 tab PO DAILY 04/03/18 02/09/19 Topiramate [Topamax] 1 tab PO BID 04/03/18 02/09/19 cloNIDine 0.3 mg/24 hr 1 patch TOP Q7D 04/03/18 02/09/19 [catapres-TTS3 0.3 mg/24 hr] Review of Systems - Review of Systems Constitutional: Normal Eyes: Normal ENT: Normal Respiratory: Normal Cardiovascular: Normal Gastrointestinal: Normal Genitourinary Male: Normal Musculoskeletal: Normal Skin: Normal Neurological: Normal Endocrine: Normal Hemo/Lymphatic: Normal Psychiatric: Normal Physical Exam Temperature: Afebrile Blood Pressure: Normal Pulse: Regular Respiratory Rate: Normal Appearance: Positive for: Well-Appearing, Non-Toxic, Comfortable Pain Distress: None Mental Status: Positive for: Alert and Oriented X 3 - Systems Exam Head: Present: Atraumatic, Normocephalic Pupils: Present: PERRL Extroacular Muscles: Present: EOMI Conjunctiva: Present: Normal Mouth: Present: Moist Mucous Membranes Neck: Present: Normal Range of Motion Respiratory/Chest: Present: Clear to Auscultation, Good Air Exchange. No: Respiratory Distress, Accessory Muscle Use Cardiovascular: Present: Regular Rate and Rhythm, Normal S1, S2. No: Murmurs Abdomen: No: Tenderness, Distention, Peritoneal Signs Rectal: Present: Other (no flunctance no eryteham no swelling minimal tenderness) Back: Present: Normal Inspection Upper Extremity: Present: Normal Inspection. No: Cyanosis, Edema Lower Extremity: Present: Normal Inspection. No: Edema Neurological: Present: GCS=15, CN II-XII Intact, Speech Normal Skin: Present: Warm, Dry, Normal Color. No: Rashes Psychiatric: Present: Alert, Oriented x 3, Normal Insight, Normal Concentration Medical Decision Making ED Course and Treatment: 02/18/19 16:01 long standing h/o of chronc pain in er no lesion, hemorrhoid, tenderness fluctuance. h/o of ocd per recrods. no acute issue stable for dc - Medication Orders Current Medication Orders: Discontinued Medications Acetaminophen (Tylenol 325mg Tab) 650 mg PO STAT STA Stop: 02/11/19 17:04 Disposition/Present on Arrival - Present on Arrival Any Indicators Present on Arrival: No History of DVT/PE: No History of Uncontrolled Diabetes: No Urinary Catheter: No History of Decub. Ulcer: No History Surgical Site Infection Following: None - Disposition Have Diagnosis and Disposition been Completed?: Yes Diagnosis: Chronic pain Disposition: HOME/ ROUTINE Disposition Time: 17:30 Condition: STABLE Discharge Instructions (ExitCare): Chronic Pain (DC), Chronic Pain Additional Instructions: return to er withworsening symptoms or concerns. Forms: [employer] (Lao)
[2019-02-11 18:23] VITALS: BP 167/91; PULSE 73; RESP 19; TEMP 98; O2SAT 97
== END 2019-02-11 18:50 | disposition home or self-care (01) ==
LOC: ED 16:17
DX: G89.29 Other chronic pain (principal); I10 Essential (primary) hypertension; I25.2 Old myocardial infarction

== ENCOUNTER 2019-02-21 17:23 | Emergency (ER) | payer MEDICARE ==
[2019-02-21 17:24] VITALS: PULSE 110
[2019-02-21 17:38] VITALS: TEMP 97.9; O2SAT 98; BMI 29.7
--- NOTE | 2019-02-21 18:30 | ED PDOC ---
Arrival/HPI - General Chief Complaint: Abnormal Skin Integrity Time Seen by Provider: 02/21/19 18:10 Historian: Patient - History of Present Illness Narrative History of Present Illness (Text): 02/21/19 18:31 68 year old male, with past medical history includes arthritis, Meniere's disease, HTN, HLD, chronic back pain, sciatica, degenerative joint disease, gastritis, anxiety, presents to the emergency department complaining of burning pain to the L buttock. Otherwise, the patient denies any fever, chills, chest pain, shortness of breath, nausea, vomiting, diarrhea, abdominal pain, urinary symptoms, bowel/bladder incontinence, trauma, injury, fall, back pain, neck pain, headache, dizziness, numbness, weakness to the legs or any other complaints. PMD: Dr. Ruiz Past Medical History - Past History Past History: No Previous - Infectious Disease Hx of Infectious Diseases: None - Tetanus Immunization Tetanus Immunization: Unknown - Past Medical History Past Medical History: Non-Contributing - Cardiac Hx Cardiac Disorders: Yes Hx [place]: Yes Hx Hypertension: Yes - Pulmonary Hx Respiratory Disorders: Yes Hx Pneumonia: Yes (11/10/14) - Neurological Hx Neurological Disorder: No - HEENT Hx HEENT Disorder: Yes (WEARS RX GLASSES) Hx Cataracts: Yes - Renal Hx Renal Disorder: Yes Other/Comment: hepatic cyst - Endocrine/Metabolic Hx Endocrine Disorders: No - Hematological/Oncological Hx Blood Disorders: No - Integumentary Hx Dermatological Disorder: No - Musculoskeletal/Rheumatological Hx Musculoskeletal Disorders: Yes Hx Arthritis: Yes Hx Back Pain: Yes Hx Degenerative Joint Disease: Yes Hx Falls: Yes Hx Rhabdomyolysis: Yes Hx Unsteady Gait: Yes (uses cane) Other/Comment: hiatal hernia, lumbar disc disease, lumbar radiculopathy - Gastrointestinal Hx Gastrointestinal Disorders: Yes Hx Diverticulitis: Yes Hx Gastritis: Yes Hx Hemorrhoids: Yes - Genitourinary/Gynecological Hx Genitourinary Disorders: No - Psychiatric Hx Psychophysiologic Disorder: Yes Hx Anxiety: Yes Hx Depression: Yes Hx Substance Use: No - Past Surgical History Past Surgical History: No Previous - Surgical History Hx Cardiac Catheterization: Yes (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%) Hx Open Heart Surgery: Yes - Anesthesia Hx Anesthesia: Yes Hx Anesthesia Reactions: No Hx Malignant Hyperthermia: No - Suicidal Assessment Feels Threatened In Home Enviroment: No Family/Social History Family/Social History: Unknown Family HX Smoking Status: Never Smoked Hx Alcohol Use: No Hx Substance Use: No Hx Substance Use Treatment: No Allergies/Home Meds Allergies/Adverse Reactions: Allergies Penicillins Adverse Reaction (Verified 02/11/19 16:35) ANAPHYLAXIS Home Medications: Home Meds Medication Instructions Recorded Confirmed Clonazepam [Klonopin] 0.5 mg PO BID PRN 04/16/14 02/09/19 Lyrica 75 mg PO BID 04/17/15 02/09/19 Amiodarone [Cordarone] 200 mg PO DAILY 08/01/15 02/09/19 Valsartan/Hydrochlorothiazide 1 tab PO DAILY 04/02/16 02/09/19 [Diovan Hct 320-25 mg Tablet] Atorvastatin [Lipitor] 1 tab PO HS 04/03/18 02/09/19 Ergocalciferol [Drisdol 50,000 1 cap PO Q7D 04/03/18 02/09/19 Intl Units Cap] Metoprolol Tartrate [Lopressor] 1 tab PO BID 04/03/18 02/09/19 Omeprazole 1 tab PO DAILY 04/03/18 02/09/19 Topiramate [Topamax] 1 tab PO BID 04/03/18 02/09/19 cloNIDine 0.3 mg/24 hr 1 patch TOP Q7D 04/03/18 02/09/19 [catapres-TTS3 0.3 mg/24 hr] Review of Systems - Review of Systems Constitutional: absent: Fatigue, Fevers Respiratory: absent: SOB, Cough Cardiovascular: absent: Chest Pain, Palpitations Gastrointestinal: absent: Abdominal Pain, Diarrhea, Vomiting Musculoskeletal: Other (+chronic pain to the L buttock). absent: Arthralgias, Back Pain, Neck Pain Skin: absent: Rash, Skin Lesions Neurological: absent: Headache, Dizziness Physical Exam Vital Signs Temp Pulse Resp BP Pulse Ox 02/21/19 17:38 97.9 F 90 19 145/79 98 Temperature: Afebrile Blood Pressure: Normal Pulse: Regular Respiratory Rate: Normal Appearance: Positive for: Well-Appearing, Non-Toxic, Comfortable, Other (+anxious) Pain Distress: None Mental Status: Positive for: Alert and Oriented X 3 - Systems Exam Head: Present: Atraumatic, Normocephalic Pupils: Present: PERRL Extroacular Muscles: Present: EOMI Conjunctiva: Present: Normal Mouth: Present: Moist Mucous Membranes Neck: Present: Normal Range of Motion Abdomen: No: Tenderness, Distention, Peritoneal Signs Rectal: Present: Other (no erythema, no edema, no tenderness to the buttock, no johnson noted at all, 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 No: Hemorrhoids, Fissures Back: Present: Normal Inspection. No: Midline Tenderness, Paraspinal Tenderness Upper Extremity: Present: Normal Inspection. No: Cyanosis, Edema Lower Extremity: Present: Normal Inspection, NORMAL PULSES, Normal ROM. No: Edema, Tenderness, Swelling Neurological: Present: GCS=15, CN II-XII Intact, Speech Normal Skin: Present: Warm, Dry, Normal Color. No: Rashes Psychiatric: Present: Alert, Oriented x 3, Normal Insight, Normal Concentration Medical Decision Making ED Course and Treatment: 02/21/19 18:35 Previous medical records reviewed, patient was seen and evaluated in this emergency room several times in January for left buttock pain. Advised to follow up with primary care physician in 1-2 days without fail. Return to the emergency room at any time for any new or worsening symptoms. - Medication Orders Current Medication Orders: Discontinued Medications Acetaminophen (Tylenol 325mg Tab) 975 mg PO STAT STA Stop: 02/21/19 18:28 - PA / HAIR DESIGNER / Resident Statement /DO has reviewed & agrees with the documentation as recorded. Disposition/Present on Arrival - Present on Arrival Any Indicators Present on Arrival: No History of DVT/PE: No History of Uncontrolled Diabetes: No Urinary Catheter: No History of Decub. Ulcer: No History Surgical Site Infection Following: None - Disposition Have Diagnosis and Disposition been Completed?: Yes Diagnosis: Chronic buttock pain Disposition: HOME/ ROUTINE Disposition Time: 18:30 Patient Plan: Discharge Patient Problems: Current Active Problems Problem Status Onset Chronic buttock pain Acute Sciatica, left side Acute Condition: STABLE Discharge Instructions (ExitCare): Chronic Pain (DC) Forms: [employer] (Greek)
[2019-02-21 21:41] VITALS: BP 132/73; PULSE 78; RESP 18
== END 2019-02-21 20:04 | disposition home or self-care (01) ==
LOC: ED 17:23
DX: G89.29 Other chronic pain (principal); M79.18 Myalgia, other site; I10 Essential (primary) hypertension; E78.5 Hyperlipidemia, unspecified; M19.90 Unspecified osteoarthritis, unspecified site; H81.09 Meniere's disease, unspecified ear; I25.2 Old myocardial infarction

== ENCOUNTER 2019-03-04 21:15 | Emergency (ER) | payer MEDICARE ==
[2019-03-04 21:17] VITALS: PULSE 110
[2019-03-04 21:20] VITALS: BMI 34.4
--- NOTE | 2019-03-04 21:23 | ED PDOC ---
Arrival/HPI - General Time Seen by Provider: 03/04/19 21:18 Historian: Patient - History of Present Illness Narrative History of Present Illness (Text): 03/04/19 21:23 68 year old male, with past medical history of CAD, hypertension, chronic back pain, and anxiety, presents to emergency department with complaints of chronic pain to the left buttock for the past several weeks. Patient has been seen in ER frequently for similar complaint. Patient denies any fevers, chills, headache, dizziness, chest pain, shortness of breath, cough, abdominal pain, nausea, vomiting, diarrhea, neck pain, or any other complaints. Symptom Onset: Gradual Symptom Course: Unchanged Activities at Onset: Light Context: Home Past Medical History - Provider Review Nursing Documentation Reviewed: Yes - Past History Past History: No Previous - Infectious Disease Hx of Infectious Diseases: None - Tetanus Immunization Tetanus Immunization: Unknown - Past Medical History Past Medical History: Non-Contributing - Cardiac Hx Cardiac Disorders: Yes Hx [place]: Yes Hx Hypertension: Yes - Pulmonary Hx Respiratory Disorders: Yes Hx Pneumonia: Yes (11/10/14) - Neurological Hx Neurological Disorder: No - HEENT Hx HEENT Disorder: Yes (WEARS RX GLASSES) Hx Cataracts: Yes - Renal Hx Renal Disorder: Yes Other/Comment: hepatic cyst - Endocrine/Metabolic Hx Endocrine Disorders: No - Hematological/Oncological Hx Blood Disorders: No - Integumentary Hx Dermatological Disorder: No - Musculoskeletal/Rheumatological Hx Musculoskeletal Disorders: Yes Hx Arthritis: Yes Hx Back Pain: Yes Hx Degenerative Joint Disease: Yes Hx Falls: Yes Hx Rhabdomyolysis: Yes Hx Unsteady Gait: Yes (uses cane) Other/Comment: hiatal hernia, lumbar disc disease, lumbar radiculopathy - Gastrointestinal Hx Gastrointestinal Disorders: Yes Hx Diverticulitis: Yes Hx Gastritis: Yes Hx Hemorrhoids: Yes - Genitourinary/Gynecological Hx Genitourinary Disorders: No - Psychiatric Hx Psychophysiologic Disorder: Yes Hx Anxiety: Yes Hx Depression: Yes Hx Substance Use: No - Past Surgical History Past Surgical History: No Previous - Surgical History Hx Cardiac Catheterization: Yes (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%) Hx Open Heart Surgery: Yes - Anesthesia Hx Anesthesia: Yes Hx Anesthesia Reactions: No Hx Malignant Hyperthermia: No - Suicidal Assessment Feels Threatened In Home Enviroment: No Family/Social History - Physician Review Nursing Documentation Reviewed: Yes Family/Social History: Unknown Family HX Smoking Status: Never Smoked Hx Alcohol Use: No Hx Substance Use: No Hx Substance Use Treatment: No Allergies/Home Meds Allergies/Adverse Reactions: Allergies Penicillins Adverse Reaction (Verified 03/04/19 21:20) ANAPHYLAXIS Home Medications: Home Meds Medication Instructions Recorded Confirmed Clonazepam [Klonopin] 0.5 mg PO BID PRN 04/16/14 03/04/19 Amiodarone [Cordarone] 200 mg PO DAILY 08/01/15 03/04/19 Valsartan/Hydrochlorothiazide 1 tab PO DAILY 04/02/16 03/04/19 [Diovan Hct 320-25 mg Tablet] Atorvastatin [Lipitor] 1 tab PO HS 04/03/18 03/04/19 Ergocalciferol [Drisdol 50,000 1 cap PO Q7D 04/03/18 03/04/19 Intl Units Cap] Metoprolol Tartrate [Lopressor] 1 tab PO BID 04/03/18 03/04/19 Omeprazole 1 tab PO DAILY 04/03/18 03/04/19 Topiramate [Topamax] 1 tab PO BID 04/03/18 03/04/19 cloNIDine 0.3 mg/24 hr 1 patch TOP Q7D 04/03/18 03/04/19 [catapres-TTS3 0.3 mg/24 hr] Pregabalin [Lyrica] 25 mg PO BID 03/04/19 03/04/19 Review of Systems - Physician Review All systems were reviewed & negative as marked: Yes - Review of Systems Constitutional: Normal. absent: Fevers Eyes: Normal ENT: Normal Respiratory: Normal. absent: SOB, Cough Cardiovascular: Normal. absent: Chest Pain Gastrointestinal: Normal. absent: Abdominal Pain, Diarrhea, Nausea, Vomiting Genitourinary Male: Normal. absent: Dysuria, Frequency, Hematuria, Urinary Output Changes Musculoskeletal: Other (+left buttock pain). absent: Back Pain, Neck Pain Skin: Normal. absent: Rash Neurological: Normal. absent: Headache, Dizziness Endocrine: Normal Hemo/Lymphatic: Normal Psychiatric: Normal Physical Exam Vital Signs Reviewed: Yes Temperature: Afebrile Blood Pressure: Hypertensive Pulse: Regular Respiratory Rate: Normal Appearance: Positive for: Well-Appearing, Non-Toxic, Comfortable Pain Distress: None Mental Status: Positive for: Alert and Oriented X 3 - Systems Exam Head: Present: Atraumatic, Normocephalic Pupils: Present: PERRL Extroacular Muscles: Present: EOMI Conjunctiva: Present: Normal Mouth: Present: Moist Mucous Membranes Neck: Present: Normal Range of Motion Respiratory/Chest: Present: Clear to Auscultation, Good Air Exchange. No: Respiratory Distress, Accessory Muscle Use Cardiovascular: Present: Regular Rate and Rhythm, Normal S1, S2. No: Murmurs Abdomen: No: Tenderness, Distention, Peritoneal Signs Back: Present: Normal Inspection Upper Extremity: Present: Normal Inspection. No: Cyanosis, Edema Lower Extremity: Present: Normal Inspection. No: Edema Neurological: Present: GCS=15, CN II-XII Intact, Speech Normal Skin: Present: Warm, Dry, Normal Color. No: Rashes Psychiatric: Present: Alert, Oriented x 3, Normal Insight, Normal Concentration Medical Decision Making ED Course and Treatment: 03/04/19 21:23 Impression: 68 year old male complaining of chronic left buttock pain. Plan: -- US Duplex Lower Extremities -- Labs -- Reassess and disposition Prior Visits: Notes and results from previous visits were reviewed. Progress Notes: 03/05/19 00:05 US Duplex Lower Extremities preliminary read negative for DVT. 03/05/19 03:41 CT Pelvis: Mild thickening of the anorectal junction suggestive of mild inflammatory pathology. No evidence of perianal fluid collection or abscess formation. Uncomplicated colonic diverticulosis. Fat containing right inguinal hernia without incarceration. Mild prostatomegaly. Prostatic calcifications are noted. Mild benign diffuse thickening of the bladder, probably a chronic finding. Normal visualized small intestine. The appendix is visualized and appears normal. Calcified otherwise plaques of the abdominal aorta. Normal inferior vena cava. Normal retroperitoneum. Normal urinary bladder. There is no pelvic mass lesion or lymphadenopathy. There is no pelvic fluid. Spondylosis. IMPRESSION: Mild thickening of the anorectal junction suggestive of mild inflammatory pathology. No evidence of perianal fluid collection or abscess formation. Uncomplicated colonic diverticulosis. Fat containing right inguinal hernia without incarceration. Mild prostatomegaly. Prostatic calcifications are noted. Mild benign diffuse thickening of the bladder, probably a chronic finding. Electronically signed on March 05, 2019 3:36:16 AM EDT by: Kalyn Samayoa M.D., Certified by ISIDRO, MSK, Neuroradiology - Lab Interpretations I have reviewed the lab results: Yes - RAD Interpretation Insurance Investigator: Radiologist - Scribe Statement The provider has reviewed the documentation as recorded by the Thaddeus Brown Provider Scribe Attestation: All medical record entries made by the Scribe were at my direction and personally dictated by me. I have reviewed the chart and agree that the record accurately reflects my personal performance of the history, physical exam, medical decision making, and the department course for this patient. I have also personally directed, reviewed, and agree with the discharge instructions and disposition. Disposition/Present on Arrival - Present on Arrival History of DVT/PE: No History of Uncontrolled Diabetes: No Urinary Catheter: No History Surgical Site Infection Following: None - Disposition Diagnosis: Sciatica, left side Disposition: HOME/ ROUTINE Patient Problems: Current Active Problems Problem Status Onset Sciatica, left side Acute Discharge Instructions (ExitCare): Sciatica (DC) Additional Instructions: follow up with dr turcios Forms: [facility] (Indian)
[2019-03-04 21:27] VITALS: TEMP 98.6
[2019-03-04 21:53] LABS: BASO # 0.04 K/mm3 (0.0-2.0); BASO % 0.4 % (0.0-3.0); EOS # 0.3 (0.0-0.7); EOS % 2.3 % (1.5-5.0); HEMOGLOBIN 13.3 g/dL (14.0-18.0); LYMPH # 3.4 (1.2-3.4); LYMPH % 30.4 % (22.0-35.0); MEAN CELL VOLUME 89.7 fl (80.0-105.0); MEAN CORPUSCULAR HEMOGLOBIN 29.2 pg (25.0-35.0); MEAN CORPUSCULAR HGB CONC 32.5 g/dl (31.0-37.0); MEAN PLATELET VOLUME 10.4 fl (7.0-11.0); MONO # 0.8 (0.1-0.6); RBC 4.56 10^6/uL (3.5-6.1); RED CELL DISTRIBUTION WIDTH 14.3 % (11.5-14.5); WHITE BLOOD COUNT 11.2 10^3/uL (4.5-11.0)
[2019-03-04 22:08] LABS: ALB/GLOB RATIO 1.1 (1.1-1.8); ALBUMIN 3.9 g/dL (3.0-4.8); CALCIUM 8.8 mg/dL (8.4-10.5)
[2019-03-05 04:12] VITALS: BP 139/86; PULSE 82; RESP 19; O2SAT 100
--- NOTE | 2019-03-05 13:43 | CT ---
Date of service: 03/05/2019 PROCEDURE: CT Pelvis without contrast HISTORY: r/o abscess COMPARISON: None available. TECHNIQUE: Contiguous axial images of the pelvis . No intravenous or oral contrast given. Coronal and sagittal reformats generated. Radiation dose: Total exam DLP = 851.32 mGy-cm. This CT exam was performed using one or more of the following dose reduction techniques: Automated exposure control, adjustment of the mA and/or kV according to patient size, and/or use of iterative reconstruction technique. FINDINGS: Included bowel loops appear within normal limits of caliber without evidence of obstruction. Scattered diverticulosis without CT evidence of acute diverticulitis. The appendix appears within normal limits without secondary signs to suggest acute appendicitis. Mild nonspecific thickening at the anal rectal junction. No evidence of perianal fluid collection or abscess formation. Partially imaged mesenteric inflammatory stranding within the midline abdomen. Urinary bladder demonstrates mild wall thickening. Prostate gland measures approximately 3.7 x 4.2 cm and contains calcifications. Small bilateral fat containing inguinal hernias. Degenerative changes. No acute osseous abnormality is detected. IMPRESSION: Scattered diverticulosis without CT evidence of acute diverticulitis. Mild nonspecific thickening at the anal rectal junction. No evidence of perianal fluid collection or abscess formation. Partially imaged mesenteric inflammatory stranding within the midline abdomen. Mild wall thickening of the urinary bladder; correlate clinically including urinalysis if indicated. Additional incidental findings as above. Preliminary impression was provided by Kochzauber.
== END 2019-03-05 04:09 | disposition home or self-care (01) ==
LOC: ED 21:15
DX: M54.32 Sciatica, left side (principal); I25.10 Atherosclerotic heart disease of native coronary artery without angina pectoris; I10 Essential (primary) hypertension; I25.2 Old myocardial infarction

== ENCOUNTER 2019-03-16 11:36 | Emergency (ER) | payer MEDICARE ==
[2019-03-16 11:37] VITALS: PULSE 110; BMI 34.4
--- NOTE | 2019-03-16 15:47 | ED PDOC ---
Arrival/HPI - General Chief Complaint: GI Problem - History of Present Illness Narrative History of Present Illness (Text): 03/16/19 15:43 A 68 year old male, whose past medical history includes CAD, arthritis, Meniere's disease, HTN, HLD, chronic back pain, sciatica, degenerative joint disease, gastritis and anxiety, presents to the ED complaining of sciatic chronic pain for a long time. Patient notes he thought he took Flexeril today but it was his thyroid medication. Patient is eating well and denies any recent fall, chest pain, shortness of breath, or vomiting. Time/Duration: Other (Chronic) Symptom Onset: Gradual Symptom Course: Unchanged Activities at Onset: Light Context: Home Past Medical History - Provider Review Nursing Documentation Reviewed: Yes - Past History Past History: No Previous - Infectious Disease Hx of Infectious Diseases: None - Tetanus Immunization Tetanus Immunization: Unknown - Past Medical History Past Medical History: Non-Contributing - Cardiac Hx Cardiac Disorders: Yes Hx [place]: Yes Hx Hypertension: Yes - Pulmonary Hx Respiratory Disorders: Yes Hx Pneumonia: Yes (11/10/14) - Neurological Hx Neurological Disorder: No - HEENT Hx HEENT Disorder: Yes (WEARS RX GLASSES) Hx Cataracts: Yes - Renal Hx Renal Disorder: Yes Other/Comment: hepatic cyst - Endocrine/Metabolic Hx Endocrine Disorders: No - Hematological/Oncological Hx Blood Disorders: No - Integumentary Hx Dermatological Disorder: No - Musculoskeletal/Rheumatological Hx Musculoskeletal Disorders: Yes Hx Arthritis: Yes Hx Back Pain: Yes Hx Degenerative Joint Disease: Yes Hx Falls: Yes Hx Rhabdomyolysis: Yes Hx Unsteady Gait: Yes (uses cane) Other/Comment: hiatal hernia, lumbar disc disease, lumbar radiculopathy - Gastrointestinal Hx Gastrointestinal Disorders: Yes Hx Diverticulitis: Yes Hx Gastritis: Yes Hx Hemorrhoids: Yes - Genitourinary/Gynecological Hx Genitourinary Disorders: No - Psychiatric Hx Psychophysiologic Disorder: Yes Hx Anxiety: Yes Hx Depression: Yes Hx Substance Use: No - Past Surgical History Past Surgical History: No Previous - Surgical History Hx Cardiac Catheterization: Yes (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%) Hx Open Heart Surgery: Yes - Anesthesia Hx Anesthesia: Yes Hx Anesthesia Reactions: No Hx Malignant Hyperthermia: No - Suicidal Assessment Feels Threatened In Home Enviroment: No Family/Social History - Physician Review Nursing Documentation Reviewed: Yes Family/Social History: No Known Family HX Smoking Status: Never Smoked Hx Alcohol Use: No Hx Substance Use: No Hx Substance Use Treatment: No Allergies/Home Meds Allergies/Adverse Reactions: Allergies Penicillins Adverse Reaction (Verified 03/16/19 11:47) ANAPHYLAXIS Home Medications: Home Meds Medication Instructions Recorded Confirmed Clonazepam [Klonopin] 0.5 mg PO BID PRN 04/16/14 03/16/19 Amiodarone [Cordarone] 200 mg PO DAILY 08/01/15 03/16/19 Valsartan/Hydrochlorothiazide 1 tab PO DAILY 04/02/16 03/16/19 [Diovan Hct 320-25 mg Tablet] Atorvastatin [Lipitor] 1 tab PO HS 04/03/18 03/16/19 Ergocalciferol [Drisdol 50,000 1 cap PO Q7D 04/03/18 03/16/19 Intl Units Cap] Metoprolol Tartrate [Lopressor] 1 tab PO BID 04/03/18 03/16/19 Omeprazole 1 tab PO DAILY 04/03/18 03/16/19 Topiramate [Topamax] 1 tab PO BID 04/03/18 03/16/19 cloNIDine 0.3 mg/24 hr 1 patch TOP Q7D 04/03/18 03/16/19 [catapres-TTS3 0.3 mg/24 hr] Pregabalin [Lyrica] 25 mg PO BID 03/04/19 03/16/19 Review of Systems - Physician Review All systems were reviewed & negative as marked: Yes - Review of Systems Respiratory: absent: SOB Cardiovascular: absent: Chest Pain Gastrointestinal: absent: Vomiting Musculoskeletal: Other (Chronic sciatic pain) Physical Exam Vital Signs Reviewed: Yes Vital Signs Temp Pulse Resp BP Pulse Ox 03/16/19 13:37 98.3 F 89 19 139/59 L 97 03/16/19 11:54 98.0 F 98 H 18 152/83 H 100 Temperature: Afebrile Blood Pressure: Hypertensive Pulse: Regular Respiratory Rate: Normal Appearance: Positive for: Well-Appearing, Non-Toxic, Comfortable Pain Distress: Mild Mental Status: Positive for: Alert and Oriented X 3 - Systems Exam Head: Present: Atraumatic, Normocephalic Pupils: Present: PERRL Extroacular Muscles: Present: EOMI Conjunctiva: Present: Normal Respiratory/Chest: Present: Clear to Auscultation, Good Air Exchange. No: Respiratory Distress, Accessory Muscle Use Cardiovascular: Present: Regular Rate and Rhythm, Normal S1, S2. No: Murmurs Abdomen: No: Tenderness, Distention, Peritoneal Signs Psychiatric: Present: Alert, Oriented x 3, Normal Insight, Normal Concentration Medical Decision Making ED Course and Treatment: 03/16/19 15:53 Impression: A 68 year old male who presents to the ED complaining of chronic sciatic pain. Plan: -- Flexeril -- Toradol -- Reassess and disposition Prior Visits: Notes and results from previous visits were reviewed. Patient was last seen in the emergency department on 03/04/19. Progress Notes: Spoke to Dr. Ruiz, whom patient is well known to. Patient to be discharged with a prescription of Flexeril. Patient will follow up with Dr. Ruiz. - Medication Orders Current Medication Orders: Discontinued Medications Cyclobenzaprine HCl (Flexeril) 10 mg PO STAT STA Stop: 03/16/19 13:04 Last Admin: 03/16/19 13:16 Dose: 10 mg Ketorolac Tromethamine (Toradol) 30 mg IM STAT STA Stop: 03/16/19 13:04 Last Admin: 03/16/19 13:16 Dose: 30 mg MAR Pain Assessment Document 03/16/19 13:16 GMI (Rec: 03/16/19 13:17 GMI [id number]) Pain Reassessment Is this a pain reassessment? Yes Sleep Is patient sleeping during reassessment? No Presence of Pain Presence of Pain Yes Pain Scale Used Protocol: PSCALES Pain Scale Used Numeric Location Left, Right or Bilateral Left Upper or Lower Lower Pain Location Body Site Thigh Description Description Intermittent Pain Behavior Facial Grimacing IM Administration Charges Document 03/16/19 13:16 GMI (Rec: 03/16/19 13:17 GMI [id number]) Injection Site MAR Injection Site Left Gluteus Adonay Charges for Administration # of IM Administrations 1 - Scribe Statement The provider has reviewed the documentation as recorded by the Markosibe Adam Gregorio Provider Scribe Attestation: All medical record entries made by the Scribe were at my direction and personally dictated by me. I have reviewed the chart and agree that the record accurately reflects my personal performance of the history, physical exam, medical decision making, and the department course for this patient. I have also personally directed, reviewed, and agree with the discharge instructions and disposition. Disposition/Present on Arrival - Present on Arrival Any Indicators Present on Arrival: No History of DVT/PE: No History of Uncontrolled Diabetes: No Urinary Catheter: No History of Decub. Ulcer: No History Surgical Site Infection Following: None - Disposition Have Diagnosis and Disposition been Completed?: Yes Diagnosis: Sciatica, left side Disposition: HOME/ ROUTINE Disposition Time: 12:40 Condition: GOOD Discharge Instructions (ExitCare): Sciatica (DC) Additional Instructions: HUGO QUINTANILLA, thank you for letting us take care of you today. The emergency medical care you received today was directed at your acute symptoms. If you were prescribed any medication, please fill it and take as directed. It may take several days for your symptoms to resolve. Return to the Emergency Department if your symptoms worsen, do not improve, or if you have any other problems. Please contact your doctor or call one of the physicians/clinics you have been referred to that are listed on the Patient Visit Information form that is included in your discharge packet. Bring any paperwork you were given at discharge with you along with any medications you are taking to your follow up visit. Our treatment cannot replace ongoing medical care by a primary care provider outside of the emergency department. Thank you for allowing the [facility] team to be part of your care today. Follow up with Dr. Ruiz this week for re-evaluation and further management. Prescriptions: Cyclobenzaprine [Cyclobenzaprine HCl] 10 mg PO Q8 PRN #20 tab PRN Reason: Muscle Spasm Referrals: Thom Ruiz DO [Family Provider] - Follow up with primary Forms: [employer] (Indonesian)
[2019-03-16 16:04] VITALS: BP 129/76; PULSE 79; RESP 18; TEMP 98; O2SAT 98
== END 2019-03-16 16:04 | disposition home or self-care (01) ==
LOC: ED 11:36
DX: M54.32 Sciatica, left side (principal)
CPT/HCPCS: 96372; 99284; J1885